=== PATIENT | female | born 1955 | race Caucasian/White ===

== ENCOUNTER → 2020-05-17 14:51 | Outpatient (BNVA) | payer MEDICARE, SELFPAY | PROVIDERS: Family Provider Family Medicine; PCP Family Medicine; Visit Provider Nurse Practitioner Family | DX: Z11.59 Encounter for screening for other viral diseases (principal) | CPT/HCPCS: 87635 ==

== ENCOUNTER → 2020-05-27 09:40 | Outpatient (BNVA) | payer MEDICARE, SELFPAY | PROVIDERS: Family Provider Family Medicine; PCP Family Medicine; Referring Provider Family Medicine; Visit Provider Anesthesiology Pain Medicine | DX: G62.9 Polyneuropathy, unspecified (principal); B02.29 Other postherpetic nervous system involvement; F17.210 Nicotine dependence, cigarettes, uncomplicated; Z79.891 Long term (current) use of opiate analgesic | CPT/HCPCS: 99204 ==

== ENCOUNTER 2020-08-01 12:55 | Outpatient (CLI) | payer MEDICARE, OTHER, SELFPAY ==
--- NOTE | 2020-08-01 | CT_ITS ---
WS: [id number] CT ABDOMEN AND PELVIS WITH CONTRAST HISTORY: Abdominal pain. TECHNIQUE: Imaging performed of the abdomen and pelvis with IV contrast. Single phase imaging of the abdomen. Coronal and sagittal reformats are submitted. All CT scans at [facility] use at least one of these dose optimization techniques: automated exposure control; mA and/or kV adjustment per patient size (includes targeted exams where dose is matched to clinical indication); or iterativ e reconstruction. IV CONTRAST: Omnipaque 300; 95 mL IV. Oral contrast: Yes. DLP: 1099.00 mGy-cm. COMPARISON: 06/15/2019 Lower thorax: Lung bases are clear. Heart is normal size. No hiatal hernia. Liver/biliary system: Normal size with no intrahepatic dilatation. Gallbladder: Normal. No gallstones or wall thickening. No pericholecystic fluid. Pancreas: Normal. Spleen: Normal. Adrenal glands: Slightly lobulated LEFT adrenal gland. Right kidney: Moderate perinephric stranding with numerous acquired cysts. Some of the cyst are too s mall to characterize. There are additional calcifications in the pelvis which are probably related to the vascular system. No obstruction. No solid mass. Mild atrophy of the RIGHT kidney. Left kidney: Normal size with cortical cysts. Mild perinephric stranding. Aorta: There is extensive calcification throughout the aorta and mesenteric arteries. There is a mixt ure of calcified plaque and intimal thickening. Moderate stenosis at the bifurcation extending into t he common iliac arteries. High-grade stenosis in the distal RIGHT common iliac artery and moderate on the LEFT. Lymphadenopathy: There are several indeterminate lymph nodes measuring up to 10 mm at the celiac axis . Majority of these lymph nodes were present on the prior study from 06/15/2019 but appears more promi nent. Free fluid: None. GI tract: There is marked fecal retention. No obstruction. No acute inflammatory process identified. Abdominal wall: Unremarkable abdominal wall. No hernia. Pelvis: No free fluid or adenopathy. Normally distended urinary bladder. Bones: Unremarkable. CT/CT abdomen pelvis w con* [id number] IMPRESSION: 1. Bilateral renal cysts and perinephric stranding. RIGHT kidney is slightly s maller than the LEFT. Stranding was also noted on the prior examination. No int erval change. 2. Severe atherosclerosis of aorta with significant stenosis near the bifurcat ion and distal RIGHT common iliac artery. 3. Mild diffuse constipation. 4. Indeterminate but slightly enlarged celiac axis and angela hepatis lymph nod es measuring up to 10 mm. Lymph nodes measure slightly more prominent than 06/15.
[2020-08-01 14:17] LABS: Blood Urea Nitrogen 19 mg/dL (8-23)
== END 2020-08-01 12:56 | disposition home or self-care (01) ==
PROVIDERS: Family Provider Family Medicine; PCP Family Medicine; Visit Provider Family Medicine
DX: R79.89 Other specified abnormal findings of blood chemistry (principal); R10.9 Unspecified abdominal pain; Q61.02 Congenital multiple renal cysts; K59.00 Constipation, unspecified
CPT/HCPCS: 74177; 82565; 84520; Q9967

== ENCOUNTER 2020-08-09 15:39 | Emergency (ER) | payer MEDICARE, OTHER, SELFPAY ==
[2020-08-09 16:50] VITALS: BP 159/77; PULSE 68; RESP 16; TEMP 36.2; O2SAT 93; BMI 22.6
--- NOTE | 2020-08-09 19:54 | XRR_ITS ---
PROCEDURE INFORMATION: Exam: XR Chest, 1 View Exam date and time: 08/09/2020 8:03 PM Age: 64 years old Clinical indication: Shortness of breath; Additional info: Dyspnea TECHNIQUE: Imaging protocol: XR of the chest Views: 1 view. COMPARISON: CR Chest 1 [place] [id number] 06/26/2019 2:21 PM FINDINGS: Lungs: Unremarkable. No consolidation. Pleural space: Unremarkable. No pleural effusion. No pneumothorax. Heart/Mediastinum: Unremarkable. No cardiomegaly. Bones/joints: Unremarkable. XR/XR chest 1V portable [id number] IMPRESSION: No acute findings.
[2020-08-09 20:02] LABS: Basophils # 0.1 10^3/uL (0.0-0.1); Basophils % 0.7 %; Eosinophils # 0.2 10^3/uL (0.0-0.8); Eosinophils % 1.6 %; Hematocrit 42.8 % (37.0-47.0); Hemoglobin 14.1 g/dL (11.5-15.3); Lymphocytes # 2.4 10^3/uL (0.8-4.8); Lymphocytes % 22.5 %; Mean Corpuscular HGB Conc 32.9 g/dL (30.0-36.0); Mean Corpuscular Hemoglobin 32.2 pg (28.0-34.0); Mean Corpuscular Volume 97.7 fL (81-99); Mean Platelet Volume 10.1 fL (7.4-10.4); Monocytes # 0.6 10^3/uL (0.2-0.9); Monocytes % 5.7 %; Neutrophils # 7.36 10^3/uL (1.8-7.7); Neutrophils % 69.3 %; Nucleated Red Blood Cells % 0 %; Platelet Count 217 10^3/cmm (130-400); Red Blood Count 4.38 10^6/uL (4.1-5.3); Red Cell Distribution Width 12.5 % (12.1-15.1); White Blood Count 10.6 10^3/uL (4.0-10.0)
[2020-08-09 20:15] LABS: INR 0.94 (0.8-1.2)
--- NOTE | 2020-08-09 20:15 | ED_ITS ---
HPI - General Adult General: Chief complaint: General Medical Stated complaint: rash/redness to bilateral legs Time Seen by Provider: 08/09/20 19:37 PFSH ED PFSH: Family History (Updated 05/27/20 @ 10:16 by Venecia Miller LPN) Denies family history of Diabetes CAD (coronary artery disease) Clotting disorder Dementia Hyperlipidemia Chronic kidney disease (CKD) Anesthesia complication Bleeding disorder Family history of premature coronary artery disease Lung disease Cancer Hypertension Social History (Updated 08/09/20 @ 16:57 by Suresh Hawthorne RN) Smoking and tobacco status: current every day smoker cigarettes Packs smoked per day: 1.25 Alcohol intake: never Substance/Drug Use: never Course Vital Signs: Vital signs: Vital Signs Temperature 97.1 F L 08/09/20 16:50 Pulse Rate 68 08/09/20 16:50 Respiratory Rate 16 08/09/20 16:50 Blood Pressure 159/77 08/09/20 16:50 Pulse Oximetry 93 08/09/20 16:[address] [facility] - General Adult Lab Data: Labs: Lab Results 08/09/20 08/09/20 Range/Units 19:30 19:30 WBC 10.6 H (4.0-10.0) 10^3/ uL RBC 4.38 (4.1-5.3) 10^6/u L Hgb 14.1 (11.5-15.3) g/dL Hct 42.8 (37.0-47.0) % MCV 97.7 (81-99) fL MCH 32.2 (28.0-34.0) pg MCHC 32.9 (30.0-36.0) g/dL RDW 12.5 (12.1-15.1) % Plt Count 217 (130-400) 10^3/c mm MPV 10.1 (7.4-10.4) fL Neut % (Auto) 69.3 % Lymph % (Auto) 22.5 % Lipscomb % (Auto) 5.7 % Eos % (Auto) 1.6 % Baso % (Auto) 0.7 % Neut # (Auto) 7.36 (1.8-7.7) 10^3/u L Lymph # (Auto) 2.4 (0.8-4.8) 10^3/u L Lipscomb # (Auto) 0.6 (0.2-0.9) 10^3/u L Eos # (Auto) 0.2 (0.0-0.8) 10^3/u L Baso # (Auto) 0.1 (0.0-0.1) 10^3/u L Nucleated RBC % (a uto) 0 % Nucleated RBCs # 0.0 /100WBC PT 12.80 (12.1-14.9) SECO NDS INR 0.94 (0.8-1.2) Imaging Data^: CXR: Attestation: I personally reviewed and interpreted this imaging study as follows: My impression: No acute cardiopulmonary findings. Discharge Plan Discharge Prescriptions: No Action lisinopril 20 mg tablet 20 mg PO DAILY RF: 0 amlodipine 10 mg tablet 10 mg PO DAILY RF: 0 isosorbide mononitrate 30 mg tablet extended release 24 hr 30 mg PO DAILY RF: 0 methimazole 10 mg tablet 10 mg PO DAILY RF: 0 aspirin [Adult Aspirin Regimen] 81 mg tablet,delayed release (DR/EC) 81 mg PO DAILY RF: 0 pregabalin 75 mg capsule 75 mg PO BID RF: 0 morphine 10 mg capsule,extend.release pellets 15 mg PO .twice RF: 0 lorazepam 1 mg tablet 1 mg PO BID PRNRF: 0 atorvastatin 80 mg tablet 80 mg PO DAILY RF: 0 lidocaine 5 % adhesive patch,medicated 1 patch TOPICAL DAILY RF: 0 polyethylene glycol 3350 8.5 gram powder in packet 8.5 gm PO DAILY PRNRF: 0 ondansetron 8 mg film 8 mg PO Q8H RF: 0 Stool Softener 50 mg capsule 50 mg PO DAILY RF: 0 diphenhydramine HCl [Benadryl] 25 mg capsule 25 mg PO TID PRNRF: 0 Coding Level of Care Code ED Board Certified Arts Therapist for Issa Ji
[2020-08-09 20:16] LABS: Partial Thromboplastin Time 31.2 SECONDS (23.9-36.7)
[2020-08-09 20:21] LABS: Alanine Aminotransferase 117 U/L (0-33); Albumin Level 4.2 g/dL (3.5-5.2); Alkaline Phosphatase 152 IU/L (35-105); Anion Gap 13.5 (5-19); Aspartate Amino Transferase 117 U/L (0-32); Blood Urea Nitrogen 19 mg/dL (8-23); C Reactive Protein 1.7 mg/L (0.0-4.9); Calcium 9.1 mg/dL (8.5-10.5); Carbon Dioxide 27 mmol/L (22-29); Chloride 97 mmol/L (98-107); Globulin 3.8 g/dL (1.3-4.6); Glucose 108 mg/dL (65-115); Lipase 47 U/L (13-60); Osmolality Calculated 279 mOsm/kg (285-295); Potassium 4.5 mmol/L (3.5-5.1); Sodium 133 mmol/L (136-145); Total Bilirubin 0.4 mg/dL (0.15-1.2)
[2020-08-09 20:55] LABS: Erythrocyte Sedimentation Rate 26 mm/hr (0-15)
[2020-08-09 21:01] LABS: Add Urine Microscopic? YES; Bilirubin Urine Neg (Negative); Blood Urine Neg (Negative); Glucose Urine UA Norm (Normal); Ketones Urine Negative (Negative); Leukocyte Esterase Urine Negative (Negative); Nitrate Urine Negative (Negative); Protein Urine Neg (Negative); Specific Gravity, Urine 1.015 (1.005-1.030); Urine Appearance SL Hazy (CLEAR); Urine Color Yellow (Yellow); Urobilinogen Urine Norm (Negative); pH Urine 5 (5-7)
--- NOTE | 2020-08-09 21:06 | USR_ITS ---
PROCEDURE INFORMATION: Exam: US Duplex Lower Extremity Veins, Bilateral Exam date and time: 08/09/2020 9:25 PM Age: 64 years old Clinical indication: Edema, localized; Lower extremity, bilateral; Additional info: Swelling TECHNIQUE: Imaging protocol: Real-time duplex ultrasound of the extremities with 2-D dillon scale, color Doppler flow and spectral waveform analysis with image documentation. Complete exam focused on the bilateral lower extremity veins. COMPARISON: No relevant prior studies available. FINDINGS: Right deep veins: Unremarkable. The common femoral, femoral, proximal profunda femoral and popliteal veins are patent without thrombus. Normal Doppler waveforms. Normal compressibility and/or augmentation response. Right superficial veins: Saphenofemoral junction is patent without thrombus. Left deep veins: Unremarkable. The common femoral, femoral, proximal profunda femoral and popliteal veins are patent without thrombus. Normal Doppler waveforms. Normal compressibility and/or augmentation response. Left superficial veins: Saphenofemoral junction is patent without thrombus. Soft tissues: Unremarkable. US/CV venous duplex [facility] [id number] IMPRESSION: No evidence of deep vein thrombosis.
--- NOTE | 2020-08-09 21:07 | USR_ITS ---
PROCEDURE INFORMATION: Exam: US Abdomen, Limited; Right Upper Quadrant Exam date and time: 08/09/2020 9:25 PM Age: 64 years old Clinical indication: Abdominal pain; Epigastric TECHNIQUE: Imaging protocol: US abdomen. Real time ultrasound with image documentation. Limited exam focused on the right upper quadrant. COMPARISON: CT abdomen pelvis w con* [id number] 08/01/2020 2:25 PM FINDINGS: Liver: Normal. No masses. Gallbladder: Normal. No gallstones. There is no gallbladder wall thickening. Common bile duct: Normal. No stones. No dilation. Pancreas: Visualized pancreas is unremarkable. Right kidney: There are multiple anechoic rounded cystic masses seen within the right kidney. These measure up to 2.6 cm in diameter. US/US gall bladder [id number] IMPRESSION: There are no acute abdominal findings.
[2020-08-09 21:10] LABS: Add Urine Culture? Yes; Bacteria Urine 2+ /hpf; RBC Urine 0-4 /hpf (0-2); Squamous Epithelial Cell Urine 0-4 /hpf (0-5); WBC Urine 15-25 /hpf (0-5)
[2020-08-09] MEDS: predniSONE 20 mg Tablet 60 MG PO (23:07)
[2020-08-09] MEDS: cefdinir 300 MG CAPSULE PO (23:07)
[2020-08-09 23:11] VITALS: PULSE 78; RESP 16; O2SAT 99
== END 2020-08-09 23:13 | disposition home or self-care (01) ==
PROVIDERS: Emergency Provider Emergency Medicine; Family Provider Family Medicine; PCP Family Medicine
DX: I77.6 Arteritis, unspecified (principal); N39.0 Urinary tract infection, site not specified; Z79.82 Long term (current) use of aspirin; F17.210 Nicotine dependence, cigarettes, uncomplicated; R60.0 Localized edema; M79.89 Other specified soft tissue disorders
CPT/HCPCS: 12345; 71045; 76700; 76705; 80053; 81001; 83690; 85025; 85610; 85651; 85730; 86140; 87086; 93970; 99281; 99283; J7512

== ENCOUNTER 2020-08-13 08:14 | Outpatient (CLI) | payer MEDICARE, OTHER, SELFPAY ==
--- NOTE | 2020-08-13 08:20 | MM_ITS ---
WS: [id number] BILATERAL SCREENING DIGITAL MAMMOGRAM WITH CAD HISTORY: SCREENING COMPARISON: 07/14/2017 Bilateral CC and MLO views submitted. Computer aided detection analyzed. Breast composition: There are scattered areas of fibroglandular density. No suspicious masses, microc alcifications or architectural distortion. Benign calcification 6:00 LEFT breast. MM/[place] [id number] IMPRESSION: BI-RADS: 2-Benign FOLLOW UP: 1 Year Follow-up
== END 2020-08-13 08:15 | disposition home or self-care (01) ==
LOC: RADSHAW 08:17
PROVIDERS: PCP Family Medicine; Visit Provider Family Medicine
DX: Z12.31 Encounter for screening mammogram for malignant neoplasm of breast (principal)
CPT/HCPCS: 77067

== ENCOUNTER 2020-10-07 13:35 | Outpatient (CLI) | payer MEDICARE, OTHER, SELFPAY ==
--- NOTE | 2020-10-07 14:00 | CT_ITS ---
WS: [id number] CTA ABDOMINAL AORTA WITH RUNOFF TECHNIQUE: Contrast enhanced CTA of the abdominal aorta with bilateral lower extremity runoff. Multip lanar reformatted images were obtained. MIP reformats were also reviewed. CLINICAL INFORMATION: I73.9 - Peripheral vascular disease, unspecified COMPARISON: None. DLP: 1130.[address] scans at [facility] use at least one of these dose optimization techniques: automat ed exposure control; mA and/or kV adjustment per patient size (includes targeted exams where dose is matched to clinical indication); or iterative reconstruction. FINDINGS: Normal caliber abdominal aorta. Moderate calcified atheromatous disease abdominal aorta. No aneurysm. Dense calcification both proximal renal arteries unchanged. Greater than 50% right proximal renal art carlos stenosis. Celiac and SMA origins are patent. Inferior mesenteric artery is patent. Bilateral renal cysts. Right renal atrophy. Enlarged upper abdominal and angela hepatis lymph nodes ar e unchanged. Prominent periaortic lymph nodes are unchanged. Sigmoid constipation. Tiny fat-containin g umbilical hernia. Lung bases are well aerated. RIGHT: Right common iliac artery is patent. Severe stenosis of the right external iliac artery origin which remains patent. Heavily calcified internal iliac artery. External iliac and common femoral art eries are patent. Superficial femoral artery is tiny but remains patent to the adductor hiatus. Mild segmental stenosis popliteal artery which remains patent to the trifurcation. Dominant two-vessel run off to the ankle. Poor flow in the peroneal artery distally. LEFT: Left common iliac artery is patent. Moderate calcified atheromatous disease. External and inter nal iliac arteries are patent. Heavily calcified internal iliac artery. External iliac artery and com mon femoral arteries are patent. 60% stenosis at the superficial femoral artery origin with multifoca l stenosis in the left thigh. SFA remains patent to the adductor hiatus. Severe stenosis of the popli teal artery origin which remains patent. Popliteal artery is patent to the trifurcation with dominant two-vessel runoff to the ankle. Poor flow in the peroneal artery. CT/CT angio abd aorta runof [id number] IMPRESSION: 1. Multifocal segmental stenosis throughout the lower extremity arteries simil ar to the prior examination. 2. Symmetric appearing dominant bilateral two-vessel runoff to the ankle. Poor flow in the peroneal arteries bilaterally 3. Severe stenosis of the left popliteal artery origin which remains patent. 4. Severe stenosis of the right external iliac artery origin. 5. Otherwise multifocal segmental stenosis involving the external iliac, commo n femoral, superficial femoral artery origins ranging from 50-70% similar to pr evious. 6. Greater than 50% right renal artery stenosis is similar to previous. 7. Celiac and SMA origins are patent. 8. Moderate atheromatous disease abdominal aorta. No significant aneurysm.
[2020-10-07 14:29] LABS: Blood Urea Nitrogen 15 mg/dL (8-23); Glomerular Filtration Rate 62.8 mL/min (90-130)
--- NOTE | 2020-10-07 15:07 | USCV_ITS ---
Isadora Lamb Age: 65 Gender: F : 1955 Exam Date: 10/07/2020 15:10 Ordering Phys: Doretha Moeller MD ([email or web address]) Technologist: Ayleen Padilla [place] [facility] [place]: HISTORY: PVD PROCEDURES: Bilateral duplex Venous Insufficiency study of the Deep and Superficial systems was carried out according to normal protocol with the patient in supine positon for deep system and dependent position for the superficial system. FINDINGS: There is no evidence of bilateral deep vein thrombosis. No evidence of superficial thrombosis in the bilateral saphenous system. No evidence of reflux was noted in the bilateral deep venous system. No venous reflux noted in the bilateral greater saphenous vein. No venous reflux noted in the bilateral small saphenous vein. CONCLUSIONS No evidence of DVT or superficial vein thrombosis in the above- mentioned identifiable veins. No significant venous reflux either in the deep or superficial veins bilaterally Dr Kaley Andrade MD [facility] (Electronically Signed) Final Date: 07 October 2020 17:45 S
[2020-10-07] MEDS: iohexol 350 mg/mL 100 mL Btl IV (15:24)
== END 2020-10-07 13:36 | disposition home or self-care (01) ==
PROVIDERS: PCP Family Medicine; Visit Provider Internal Medicine Cardiovascular Disease
DX: I70.203 Unspecified atherosclerosis of native arteries of extremities, bilateral legs (principal); I70.1 Atherosclerosis of renal artery; I70.0 Atherosclerosis of aorta; I83.93 Asymptomatic varicose veins of bilateral lower extremities
CPT/HCPCS: 36415; 75635; 82565; 84520; 93970

== ENCOUNTER → 2020-11-01 10:28 | Outpatient (BNVA) | payer MEDICARE, OTHER, SELFPAY | PROVIDERS: PCP Family Medicine; Visit Provider Internal Medicine | DX: R23.3 Spontaneous ecchymoses (principal); Z11.1 Encounter for screening for respiratory tuberculosis; Z11.59 Encounter for screening for other viral diseases; R70.0 Elevated erythrocyte sedimentation rate; R74.8 Abnormal levels of other serum enzymes; F17.210 Nicotine dependence, cigarettes, uncomplicated | CPT/HCPCS: 99204 ==

== ENCOUNTER 2020-11-01 14:09 | Outpatient (CLI) | payer MEDICARE, OTHER, SELFPAY ==
[2020-11-01 15:23] LABS: Basophils % 0.1 %; Hemoglobin 13.9 g/dL (11.5-15.3); Lymphocytes % 4.5 %; Mean Corpuscular HGB Conc 33.1 g/dL (30.0-36.0); Mean Corpuscular Hemoglobin 32.5 pg (28.0-34.0); Mean Corpuscular Volume 98.1 fL (81-99); Mean Platelet Volume 10.1 fL (7.4-10.4); Monocytes # 0.2 10^3/uL (0.2-0.9); Neutrophils # 19.98 10^3/uL (1.8-7.7); Nucleated Red Blood Cells % 0 %; Platelet Count 243 10^3/cmm (130-400); Red Blood Count 4.28 10^6/uL (4.1-5.3); White Blood Count 21.3 10^3/uL (4.0-10.0)
[2020-11-01 15:27] LABS: Urine Appearance Clear (CLEAR); Urine Color Yellow (Yellow)
[2020-11-01 15:28] LABS: Add Urine Microscopic? YES; Bilirubin Urine Neg (Negative); Blood Urine Neg (Negative); Glucose Urine UA Norm (Normal); Ketones Urine Negative (Negative); Leukocyte Esterase Urine 2+ (Negative); Nitrate Urine Negative (Negative); Protein Urine Neg (Negative); Specific Gravity, Urine 1.015 (1.005-1.030); Urobilinogen Urine Norm (Negative); pH Urine 5 (5-7)
[2020-11-01 15:36] LABS: INR 0.95 (0.8-1.2)
[2020-11-01 15:37] LABS: Partial Thromboplastin Time 25.6 SECONDS (23.9-36.7)
[2020-11-01 15:38] LABS: Fibrinogen 231 mg/dL (174-498)
[2020-11-01 15:44] LABS: Alanine Aminotransferase 16 U/L (0-33); Alkaline Phosphatase 114 IU/L (35-105); Anion Gap 16.5 (5-19); Aspartate Amino Transferase 18 U/L (0-32); Blood Urea Nitrogen 24 mg/dL (8-23); C Reactive Protein 1.4 mg/L (0.0-4.9); Calcium 9.2 mg/dL (8.5-10.5); Carbon Dioxide 26 mmol/L (22-29); Chloride 94 mmol/L (98-107); Chol HDL Ratio 2.35 mg/dL (0.0-4.40); Cholesterol 207 mg/dL (0-200); Creatine Phosphokinase 22 U/L (26-192); Globulin 3.4 g/dL (1.3-4.6); Glomerular Filtration Rate 41.1 mL/min (90-130); Glucose 177 mg/dL (65-115); HDL Cholesterol 88 mg/dL (60-100); LDL Cholesterol Calculated 84 mg/dL (50-129); LDL HDL Ratio 0.95 RATIO (0.00-3.22); Osmolality Calculated 282 mOsm/kg (285-295); Potassium 4.5 mmol/L (3.5-5.1); Sodium 132 mmol/L (136-145); Total Bilirubin 0.3 mg/dL (0.15-1.2); Total Protein 7.4 g/dL (6.6-8.7); Triglycerides 175 mg/dL (0-150)
[2020-11-01 15:49] LABS: Bacteria Urine 2+ /hpf
[2020-11-01 15:50] LABS: Add Urine Culture? No
[2020-11-01 16:34] LABS: Erythrocyte Sedimentation Rate 21 mm/hr (0-15)
[2020-11-01 16:54] LABS: Complement C3 112 mg/dL (90-180)
[2020-11-01 18:01] LABS: Hepatitis B Core AB, Total Non-Reactive (Nonreactive); Hepatitis B Surface Antigen Non-Reactive (Nonreactive); Hepatitis C Virus Antibody Non-Reactive (Nonreactive)
[2020-11-04 11:07] LABS: COMPLEMENT COMPONENT C3C 111 mg/dL (83-193); COMPLEMENT COMPONENT C4C 26 mg/dL (15-57); COMPLEMENT, TOTAL (CH50) >60 U/mL (31-60)
[2020-11-04 13:12] LABS: Cyclic Citrullinated Peptide <16 UNITS
[2020-11-04 14:13] LABS: Quantiferon Mitogen >10.00 IU/mL; Quantiferon Nil 0.02 IU/mL; Quantiferon Plus TB1 <0.00 IU/mL; Quantiferon TB Gold NEGATIVE (NEGATIVE)
[2020-11-04 15:13] LABS: CENTROMERE B ANTIBODY <1.0 NEG AI (<1.0 NEG); JO-1 ANTIBODY <1.0 NEG AI (<1.0 NEG); RNP ANTIBODY <1.0 NEG AI (<1.0 NEG); SCL-70 ANTIBODY <1.0 NEG AI (<1.0 NEG); SJOGREN'S ANTIBODY (SS-A) <1.0 NEG AI (<1.0 NEG); SM ANTIBODY <1.0 NEG AI (<1.0 NEG); SS-B <1.0 NEG AI (<1.0 NEG); THYROID PEROXIDASE ANTIBODIES 4 IU/mL (<9)
[2020-11-06 03:38] LABS: Glucose-6-Phosphate Dehydrogen >21.0 U/g Hgb (7.0-20.5)
[2020-11-06 15:58] LABS: ANA PATTERN Nuclear, Homogeneous; ANA SCREEN, IFA POSITIVE (NEGATIVE)
[2020-11-06 21:27] LABS: ANCA Interp P-ANCA POS (Negative); Anti-MPO (C-ANCA) >1:640 Titer (<1:20)
[2020-11-08 04:58] LABS: Cryoglobulins Qualitative None Detected (None Detected)
[2020-11-08 22:53] LABS: DNA AB (DS) CRITHIDIA,IFA POSITIVE (NEGATIVE)
== END 2020-11-01 14:10 | disposition home or self-care (01) ==
LOC: LAB 14:13
PROVIDERS: PCP Family Medicine; Visit Provider Internal Medicine
DX: R74.8 Abnormal levels of other serum enzymes (principal); R70.0 Elevated erythrocyte sedimentation rate; M32.9 Systemic lupus erythematosus, unspecified
CPT/HCPCS: 36415; 80053; 80061; 81001; 82550; 82595; 82955; 83516; 85025; 85384; 85610; 85651; 85730; 86140; 86160; 86431; 86480; 86704; 86803; 87340

== ENCOUNTER 2020-11-14 08:01 | Outpatient (CLI) | payer MEDICARE, OTHER, SELFPAY ==
--- NOTE | 2020-11-14 08:00 | US_ITS ---
WS: [id number] RIGHT UPPER QUADRANT ULTRASOUND HISTORY: R70.0 - Elevated erythrocyte sedimentation rate COMPARISON: 08/09/2020 Liver: 12.9 cm in length. Liver is normal size. There is very mild coarsened echotexture. No mass or bile duct dilatation. Gallbladder: Normally distended gallbladder with no stones or wall thickening. CBD: 0.4 cm Pancreas: Normal size and echogenicity. Right kidney: 10.3 cm in length. Normal size kidney. There are multiple cysts within the kidney which have been previously described. The largest cyst from the upper pole measures 2.5 x 2.7 x 2.6 cm. No solid mass. Aorta and IVC: Unremarkable abdominal aorta and IVC. No ascites. US/US liver [id number] IMPRESSION: 1. Very mild coarsened echotexture throughout the liver. Correlate for possibl e early changes of cirrhosis or hepatocellular disease. 2. Negative gallbladder. 3. Several simple RIGHT renal cyst.
== END 2020-11-14 08:02 | disposition home or self-care (01) ==
LOC: RAD 08:09
PROVIDERS: PCP Family Medicine; Visit Provider Internal Medicine
DX: R70.0 Elevated erythrocyte sedimentation rate (principal); N28.1 Cyst of kidney, acquired
CPT/HCPCS: 76705

== ENCOUNTER → 2020-12-20 08:54 | Outpatient (BNVA) | payer MEDICARE, OTHER, SELFPAY | PROVIDERS: PCP Family Medicine; Visit Provider Internal Medicine | DX: I73.9 Peripheral vascular disease, unspecified (principal); R76.8 Other specified abnormal immunological findings in serum; R70.0 Elevated erythrocyte sedimentation rate; R23.3 Spontaneous ecchymoses; R74.8 Abnormal levels of other serum enzymes; Z79.899 Other long term (current) drug therapy; Z79.52 Long term (current) use of systemic steroids; F17.210 Nicotine dependence, cigarettes, uncomplicated | CPT/HCPCS: 99214 ==

== ENCOUNTER 2020-12-23 15:25 | Outpatient (CLI) | payer MEDICARE, OTHER, SELFPAY ==
--- NOTE | 2020-12-23 15:49 | XR_ITS ---
WS: [id number] LUMBAR SPINE TECHNIQUE: 3 views of the lumbar spine CLINICAL INFORMATION: I73.9 - Peripheral vascular disease, unspecified COMPARISON: None. FINDINGS: Osteopenia. Mild lumbar curve convex left. 5 nonrib-bearing lumbar vertebral bodies. Vascular calcifi cation. Mild disc space narrowing worse at L3-L4 L4-L5 and L5-S1. Aortic calcification. Moderate face t arthropathy L5-S1. No acute appearing compression fractures. XR/XR lumbar spine 2-3V* [id number] IMPRESSION: 1. Osteopenia. Mild lumbar curve. 2. No acute lumbar spine findings. 3. Mild disc space narrowing L3-L4 L4-L5 and L5-S1. 4. No acute appearing compression fractures.
== END 2020-12-23 15:26 | disposition home or self-care (01) ==
PROVIDERS: PCP Family Medicine; Visit Provider Internal Medicine
DX: I73.9 Peripheral vascular disease, unspecified (principal)
CPT/HCPCS: 72100

== ENCOUNTER → 2020-12-26 09:26 | Outpatient (BNVA) | payer MEDICARE, OTHER, SELFPAY | PROVIDERS: PCP Family Medicine; Visit Provider Internal Medicine Cardiovascular Disease | DX: I73.9 Peripheral vascular disease, unspecified (principal) | CPT/HCPCS: 80061 ==

== ENCOUNTER → 2021-01-16 08:53 | Outpatient (BNVA) | payer MEDICARE, OTHER, SELFPAY | PROVIDERS: PCP Family Medicine; Visit Provider Internal Medicine Cardiovascular Disease | DX: R74.8 Abnormal levels of other serum enzymes (principal); E78.5 Hyperlipidemia, unspecified | CPT/HCPCS: 82550; 84450; 84460 ==

== ENCOUNTER → 2021-01-28 11:08 | Outpatient (BNVA) | payer MEDICARE, OTHER, SELFPAY | PROVIDERS: PCP Family Medicine; Visit Provider Internal Medicine Cardiovascular Disease | DX: I73.9 Peripheral vascular disease, unspecified (principal) | CPT/HCPCS: 87635 ==

== ENCOUNTER 2021-02-03 09:07 | Day surgery (SDC) | payer MEDICARE, OTHER, SELFPAY ==
[2021-01-28 10:24] LABS: Basophils # 0.1 10^3/uL (0.0-0.1); Basophils % 0.5 %; Eosinophils # 0.2 10^3/uL (0.0-0.8); Eosinophils % 1.4 %; Hematocrit 42.8 % (37.0-47.0); Hemoglobin 14.4 g/dL (11.5-15.3); Lymphocytes # 4.2 10^3/uL (0.8-4.8); Mean Corpuscular HGB Conc 33.6 g/dL (30.0-36.0); Mean Corpuscular Hemoglobin 32.4 pg (28.0-34.0); Mean Corpuscular Volume 96.4 fL (81-99); Mean Platelet Volume 9.6 fL (7.4-10.4); Monocytes # 0.9 10^3/uL (0.2-0.9); Monocytes % 6.8 %; Neutrophils # 7.45 10^3/uL (1.8-7.7); Neutrophils % 58.1 %; Nucleated Red Blood Cells % 0 %; Platelet Count 234 10^3/cmm (130-400); Red Blood Count 4.44 10^6/uL (4.1-5.3); Red Cell Distribution Width 12.6 % (12.1-15.1); White Blood Count 12.8 10^3/uL (4.0-10.0)
[2021-01-28 10:39] LABS: INR 0.92 (0.8-1.2)
[2021-01-28 10:45] LABS: Blood Urea Nitrogen 19 mg/dL (8-23); Calcium 9.2 mg/dL (8.5-10.5); Carbon Dioxide 30 mmol/L (22-29); Chloride 96 mmol/L (98-107); Glomerular Filtration Rate 62.8 mL/min (90-130); Glucose 94 mg/dL (65-115); Osmolality Calculated 280 mOsm/kg (285-295); Sodium 134 mmol/L (136-145)
[2021-02-03] VITALS (48 sets, daily range): BP systolic 122–167; BP diastolic 53–119; PULSE 53–70; RESP 13–28; TEMP 36.4–36.6; O2SAT 95–98
--- NOTE | 2021-02-03 09:00 | XACV_ITS ---
Wt: 64 kg BSA: 1.73 m2 Any Known Allergies: No known allergies Gender: Female : 1955 Exam Type: Invasive Peripheral Vascular Procedure(s): Procedure Description: Peripheral Cath Diagnostic Procedure Procedure Description: Abdominal aortic angiography Procedure Description: Iliac arterial aortic angiography Procedure Description: Lower extremities' angiography Procedure Description: Peripheral vascular Intervention Procedure Description: PV Balloon Procedure Description: PV Stent Exam Priority: Routine Lower Extremity Interventional Findings After using the left common femoral artery approach we were able to cross the right common and external iliac into right SFA. While crossing right external iliac artery we with had somewhat difficulty as it appeared to be highly calcified and narrow vessel. Gradient across the vessel was noted to be 60 mmHg. Multiple balloon angioplasty in the right external and common iliac arteries were performed using 5 and 6 mm caliber balloon using [place]. Gradient did not improve more than 40. It is the reason we decided to stent the segment using silver Cook PTX 7 x 60 mm stent deployed postdilated with 7 x 60 mm [place] balloon. 10 to 20 mm gradient still residual was noted however we the results and we have a good angiographic blood flow. At the end of the procedure three-vessel runoff was noted below the right knee.. Conclusions Indication for peripheral angiogram: Lifestyle limiting claudication of right leg, abnormal imaging study.Fontan two Annette 3Abdominal angiogram, no significant stenosis of the abdominal aorta, no aneurysm notedBilateral renal artery without stenosisCommon iliac has luminal irregularity bilaterallyRight external iliac artery is moderate to severely stenotic. 60 mm of gradient across the external iliac artery lesion noted upon pullback. It is the culprit vesselLeft external iliac artery at the origin and distal segment has moderate stenosisRight common femoral artery has luminal irregularity, left common femoral artery has moderate stenosisRight and left profundofemoral artery has luminal irregularityRight and left SFA has luminal irregularityRight and left popliteal artery has luminal irregularityRight and left tibioperoneal trunk has luminal irregularityBelow the knee good three-vessel runoff was noted.Culprit vessel is right external iliac artery. Recommendations 1-Return to inpatient for close monitoring and routine cath care2-Risk factor modification for secondary prevention3-Statin and aspirin 81 mg life--long, if tolerated4-Patient was pre-loaded with 300 mg of Plavix, continue Plavix 75mg p.o. daily for three months. 5-Continue optimal medical management, if patient has lifestyle limiting claudication he may will be benefited with left side external iliac and common femoral vessel intervention which appeared to be moderate to severely stenotic6-Follow up with Dr. Moeller in four weeks and your primary care in 10 days. Hemodynamic Data Phase:Rest AO : 129.0 / 43.0 ( 71.0 ) @ 5:40:00 AM 35.0 / 28.0 ( 32.0 ) @ 5:45:00 AM 42.0 / 32.0 ( 37.0 ) @ 5:46:00 AM 38.0 / 29.0 ( 33.0 ) @ 5:48:00 AM 111.0 / 34.0 ( 62.0 ) @ 5:48:00 AM 66.0 / 41.0 ( 52.0 ) @ 5:59:00 AM 98.0 / 39.0 ( 63.0 ) @ 6:00:00 AM 100.0 / 62.0 ( 82.0 ) @ 6:05:00 AM 141.0 / 52.0 ( 87.0 ) @ 6:07:00 AM 95.0 / 48.0 ( 69.0 ) @ 6:08:00 AM 92.0 / 46.0 ( 66.0 ) @ 6:09:00 AM 136.0 / 48.0 ( 83.0 ) @ 6:09:00 AM 122.0 / 46.0 ( 75.0 ) @ 6:18:00 AM 84.0 / 45.0 ( 62.0 ) @ 6:19:00 AM 110.0 / 47.0 ( 74.0 ) @ 6:19:00 AM Access Site Site: Left Femoral artery Sheath Size: 6 Fr Hemost... Method: Suture Hemost... Success: Successful Procedure Details Findings Procedure Consent Obtained. Pre-Procedure Time Out. Identified patient by full name and date of as verbalized by the patient/guarantor. Does the consent match the physician's order: Yes. Accurate & Complete Informed Consent: Yes. Inpatient/Outpatient History & Physical on Chart: Yes. If H&P is completed, is and addenduem needed: No; If yes, is the addendum complete: N/A. Visualize and Verify Site with Patient/Guarantor: N/A. Relevant Radiology Images available: N/A. Pre-op teaching completed and patient verbalized understanding. The risks, benefits, and alternatives of sedation and/or procedure were discussed by physician. The patient agrees to continue. Procedure started. Physician notified. Physician arrived. Equipment: Peripheral. Cardiac Cath Pack. ACIST Manifold Kit Model BT 2000. Heparinized Saline (2 units/mL), 1000 mL bag. Inventory is JJ 6F 11cm Azul Plus Sheath. Physician scrubbed in. Immediate Pre-Procedure Time Out. Correct Patient: Yes; Correct Procedure: Yes; Correct Site: Yes; Correct Patient Position: Yes; Correct Supplies: Yes; Dried Flammable Prep: Yes; Blood Products Available: N/A;. Lidocaine 1% infiltrated to the left groin. Arterial access obtained with micropuncture set. A CORDIS 5F UF catheter 65cm was advanced over the wire and used for Abdominal aortogram with runoff. Abdominal aortogram performed in AP @ 10 mL/sec for a total of 30 mL. Glidewire inserted. Short 6 fr sheath exchanged for 45 cm 6 fr Flexor sheath. Inventory is CK 6 FR FLEXOR SHEATH 45CM. Catheter removed over the glide wire. Glidewire inserted. Sheath pulled back. Right leg runoff 10 ml for total of 30 ml. Side port of sheath attached to Normal Saline flush at KVO to maintain patency. Inflation number : 1 A AB ARMADA 35 OTW [id number] was prepped and advanced across the External Iliac, Right , then inflated to 12 GEO for 2:02 seconds. Inflation number: 2 The AB ARMADA 35 OTW [id number] was reinflated across the External Iliac, Right, to 12 GEO for 1:04 seconds. Inflation number: 3 The AB ARMADA 35 OTW [id number] was reinflated across the External Iliac, Right, to 14 GEO for 0:32 seconds. Balloon out over wire. Iliac angiography 10 ml for total of 20 ml. Right external iliac selected and arteriogram performed. Right external iliac selected and arteriogram performed. Iliac angiography 10 ml for total of 20 ml. Inflation number : 4 A AB ARMADA 35 OTW [id number] was prepped and advanced across the External Iliac, Right , then inflated to 7 GEO for 2:01 seconds. Balloon out over wire. Sheath pulled back. Inflation Number : 5 A [employer] ZILVER PTX CHARITY 7x60mm -Lot Number# [id number] exp date 01/14/2022 was prepped and advanced across the External Iliac, Right. The stent was deployed. Deployment system removed. Inflation number: 6 The AB ARMADA 35 OTW [id number] was reinflated across the External Iliac, Right, to 7 GEO for 1:04 seconds. Balloon out over wire. Sheath advanced to right common iliac. Sheath pulled back. Inflation number: 7 The AB ARMADA 35 OTW [id number] was reinflated across the External Iliac, Right, to 7 GEO for 1:02 seconds. Balloon out over wire. Right leg runoff 10 ml for total of 30 ml to check results. Long 45 cm Flexor sheath exchanged for short 6 fr sheath. Left leg runoff through the sheath 10 ml for total of 30 ml. Physician scrubbed out. A Suture was successful obtaining hemostatsis at the Left Femoral artery insertion site. Sheath(s) sutured into position with 2-0 silk and sterile 4x4's and Op-site applied over the site. No oozing or signs and symptoms of hematoma noted. Arterial sheath flushed and connected to tranducer and pressure bag with heparinized saline. Post Procedure: Pulses reassessed and unchanged. PERRLA. 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 No VTE prophylaxis required. Medication's Wasted: Lidocaine 1% = 10 mL. Medication's Wasted: Heparin = 3500 units. Medication's Wasted: Other = versed 1 mg. Medication's Wasted: Other = fentanyl 75 mcg. Total IV fluids: 100 mL. Contrast type used: Visipaque 320 mgI/mL, 500 mL bottle. Complications: none. Post-op diagnosis: severe PVD of external illiac. Estimated blood loss: 5mL-10mL. Procedure completed. Patient transferred by bed to 1st floor. Procedure Medications Start: 10:13 AM Stop: 10:13 AM Medication: Benadryl Amount: 50 mg Route: I.V. Start: 10:20 AM Stop: 10:20 AM Medication: Versed Amount: 1 mg Route: I.V. Start: 10:20 AM Stop: 10:20 AM Medication: Fentanyl Amount: 50 mcg Route: I.V. Start: 10:24 AM Stop: 10:24 AM Medication: Versed Amount: 1 mg Route: I.V. Start: 10:32 AM Stop: 10:32 AM Medication: Versed Amount: 1 mg Route: I.V. Start: 10:35 AM Stop: 10:35 AM Medication: Fentanyl Amount: 25 mcg Route: I.V. Start: 10:38 AM Stop: 10:38 AM Medication: Versed Amount: 1 mg Route: I.V. Start: 10:56 AM Stop: 10:56 AM Medication: Versed Amount: 1 mg Route: I.V. Start: 10:59 AM Stop: 10:59 AM Medication: Heparin Amount: 5000 units Route: I.V. Start: 11:05 AM Stop: 11:05 AM Medication: Fentanyl Amount: 25 mcg Route: I.V. Start: 11:07 AM Stop: 11:07 AM Medication: Versed Amount: 1 mg Route: I.V. Start: 11:21 AM Stop: 11:21 AM Medication: Versed Amount: 1 mg Route: I.V. Start: 11:23 AM Stop: :23 AM Medication: Fentanyl Amount: 25 mcg Route: I.V. Start: 11:26 AM Stop: 11:26 AM Medication: Heparin Amount: 1500 units Route: I.V. Start: 11:31 AM Stop: 11:31 AM Medication: Plavix Amount: 300 mg Route: P.O. I, the attending physician, have reviewed and verified all procedure medications. Yes, all medications given per verbal order History/Risk Factors Hypertension: No Dyslipidemia: No Peripheral Arterial Disease (PAD): Yes Obesity: No Renal Disease: No Tobacco Use: Current/Recent(w/in 1 year) Prior Interventions PCI: No CABG: No Valve Surgery: No Report Signatures Finalized by Doretha Moeller MD on 02/16/2021 08:46 PM
--- NOTE | 2021-02-03 10:21 | P.HP_ITS ---
Same Day Surgery H&P Indication for Procedure/HPI DATE OF PROCEDURE: February 03, 2021 CHIEF COMPLAINT/INDICATIONFOR SURGICAL PROCEDURE: Lifestyle limiting claudication more on right than left PREOP DIAGNOSIS: Severe peripheral vascular disease, lifestyle limiting claudication PLANNED PROCEDRUE: Operation Date: 02/03/21 10:00 Proposed Procedures p Peripheral Diagnostic 10873 I87.2(Not Applicable) - Doretha Moeller MD 65-year-old female past medical history significant for hypertension hyperlipidemia severe peripheral vascular disease history of smoking for lifestyle limiting claudication and abnormal CTA for severe stenosis of the right external iliac artery at the origin with multifocal segmental stenosis involving the external iliac common femoral superficial femoral ranging from 50 to 70% after failing the medical management she is here for peripheral angiogram as it is hindering her lifestyle and she thinks she cannot walk more than few feet. Patient has been explained all risk benefit and alternative for the procedure. Patient has been explained by myself regarding FDA warning about drug-coated balloon as it has shown to increase mortality. Patient understand it and given with permission if required I can use it. Patient denies otherwise chest pain shortness of breath PND orthopnea. Patient has been explained urgent emergent blood transfusion surgery and worse case scenario risk for . Medications/Allergies* Home Medications Medication Instructions Recorded Confirmed Type amlodipine 10 mg tablet 10 mg PO DAILY 05/27/20 01/31/21 History aspirin 81 mg tablet,delayed 81 mg PO DAILY 05/27/20 01/31/21 History release docusate sodium 50 mg capsule 50 mg PO DAILY 05/27/20 01/31/21 History isosorbide mononitrate 30 mg 30 mg PO DAILY 05/27/20 01/31/21 History tablet,extended release 24 hr lidocaine 5 % topical patch 1 patch TOPICAL DAILY 05/27/20 01/31/21 History lorazepam 1 mg tablet 1 mg PO BID PRN 05/27/20 01/31/21 History morphine 10 mg capsule,extended 15 mg PO BID cap 05/27/20 01/31/21 History release pellets ondansetron 8 mg oral soluble film 8 mg PO Q8H 05/27/20 01/31/21 History polyethylene glycol 3350 8.5 gram 8.5 gm PO DAILY PRN 05/27/20 01/31/21 History oral powder packet pregabalin 75 mg capsule 75 mg PO BID 05/27/20 01/31/21 History lidocaine-methyl applic TOPICAL 09/12/20 12/20/20 History mca-cpwotcwht-dvjfuol 2 %-20 %-0.035 %-5 % top cream methimazole 10 mg tablet 5 mg PO .qod tab 09/12/20 01/31/21 History lisinopril 20 1 tab PO DAILY 11/01/20 01/31/21 History mg-hydrochlorothiazide 12.5 mg tablet Narcan 4 mg NOSTRIL-B PRN 01/31/21 01/31/21 History atorvastatin 80 mg PO BEDTIME 01/31/21 01/31/21 History Allergies/Adverse Reactions Allergy/AdvReac Type Severity Reaction Status Date / Time No Known Allergies Allergy Verified 12/20/20 09:08 Pertinent History/Comorbid Conditions* Medical History (Updated 12/20/20 @ 09:33 by Virginia Fermin MD) Claudication of both lower extremities Family History (Updated 05/27/20 @ 10:16 by Venecia Miller LPN) Denies family history of Diabetes CAD (coronary artery disease) Clotting disorder Dementia Hyperlipidemia Chronic kidney disease (CKD) Anesthesia complication Bleeding disorder Family history of premature coronary artery disease Lung disease Cancer Hypertension Social History Smoking and tobacco status: current every day smoker cigarettes Packs smoked per day: 1.25 Alcohol intake: never Pertinent Exam Findings alert, oriented x 3, clear to auscultation bilaterally and regular rate & rhythm Conscious Sedation Assessment PATIENT ASSESSED PRIOR TO SEDATION, WITH NO CHANGE NOTED: Yes AIRWAY EVAL/ANESTHESIA PLAN: ASA II and Risks, benefits & alternatives of sedation and/or procedure discussed Recommendations Surgery/Procedure today Coding Level of Care Code Acute Membership Manager for Issa Ji
--- NOTE | 2021-02-03 12:09 | PC.NURSE ---
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
[2021-02-03] MEDS: hydroCHLOROthiazide 25 mg Tablet 12.5 MG PO (13:45)
[2021-02-03] MEDS: lisinopril 20 mg Tablet PO (13:45)
[2021-02-03] MEDS: aspirin 81 mg EC Tablet PO (13:45)
--- NOTE | 2021-02-03 14:00 | PC.NURSE ---
Home meds per policy are kept in the pyxis. Explained to pt regarding hospital policy regarding her home med bottles with narcotics and her home meds. Pharmacy is notified as well as the physician regarding pt's needing her Lyrica and Morphine 15 mg IR for breakthrough pain. Okay for doctor Sunni to start her meds. We informed the patient that we will keep her home meds in the pysis. Meds in Pyxis- Lidocaine patch, Morphine 15 mg IR, Morphine 15 mg ER, Lyrica 75 caps, Methimazole 5 mg, Prednisone 5 mg, Nitroglycerine bottle, one bottle with her morning pills.
[2021-02-03] MEDS: pregabalin 75 mg Capsule PO (14:07)
[2021-02-03] MEDS: morphine IR 15 mg Tablet PO (14:07)
[2021-02-03] MEDS: predniSONE 5 mg Tablet PO (14:08)
[2021-02-03 15:17] LABS: Partial Thromboplastin Time 231.6 SECONDS (23.9-36.7)
[2021-02-03 16:40] LABS: Partial Thromboplastin Time 38.2 SECONDS (23.9-36.7)
[2021-02-03] MEDS: fentaNYL 50 mcg/mL INJ 2mL IVP ×2 (17:59→18:46)
--- NOTE | 2021-02-03 18:15 | PC.NURSE ---
Pt stated she is having pain across her middle back radiates to right hip and right groin. she described the pain a sharp shooting pain once in a while, pain scale at 10 when she feels it. Pedal pulse are palpable bilaterally. Skin is warm to touch. Fentanyl IVP 1st dose given which patient said it brought her pain down to 5. We will monitor.
--- NOTE | 2021-02-03 18:30 | PC.NURSE ---
Sheath pulled on left femoral artery Per-medicated pt with Fentanyl x2. Femoral artery felt on left groin area. Sheath pulled. Manual pressure applied for 20 mins. Hemostasis achieved. No hematoma, bleeding, swelling. Pedal pulses are doppled bilaterally with good result. Acitivity restrictions discussed to pt. Pt teaches back. Call light within reach.
--- NOTE | 2021-02-03 19:00 | PC.NURSE ---
Repositioned to left side for comfort Pt still has mild to moderate pain upon movement to her right hip. Repositioned to left side which help.
[2021-02-03] MEDS: morphine ER (12 HR) 15 mg Tablet PO (20:43)
[2021-02-03] MEDS: atorvastatin 40 mg Tablet 80 MG PO (20:43)
[2021-02-03] MEDS: LORazepam 1 mg Tablet PO (20:43)
[2021-02-04] VITALS (33 sets, daily range): BP systolic 110–152; BP diastolic 56–74; PULSE 52–78; RESP 14–25; TEMP 36.6–37.5; O2SAT 95
[2021-02-04 04:45] LABS: Basophils # 0.1 10^3/uL (0.0-0.1); Basophils % 0.4 %; Eosinophils # 0.1 10^3/uL (0.0-0.8); Eosinophils % 1.1 %; Hematocrit 41.8 % (37.0-47.0); Hemoglobin 13.9 g/dL (11.5-15.3); Lymphocytes # 2.1 10^3/uL (0.8-4.8); Mean Corpuscular HGB Conc 33.3 g/dL (30.0-36.0); Mean Corpuscular Hemoglobin 32.3 pg (28.0-34.0); Mean Corpuscular Volume 97.2 fL (81-99); Mean Platelet Volume 10.2 fL (7.4-10.4); Monocytes # 0.9 10^3/uL (0.2-0.9); Monocytes % 7.2 %; Neutrophils # 9.17 10^3/uL (1.8-7.7); Neutrophils % 74.1 %; Nucleated Red Blood Cells % 0 %; Platelet Count 195 10^3/cmm (130-400); Red Cell Distribution Width 12.4 % (12.1-15.1); White Blood Count 12.4 10^3/uL (4.0-10.0)
[2021-02-04 05:10] LABS: Anion Gap 10.4 (5-19); Blood Urea Nitrogen 20 mg/dL (8-23); Calcium 8.5 mg/dL (8.5-10.5); Carbon Dioxide 27 mmol/L (22-29); Chloride 101 mmol/L (98-107); Glomerular Filtration Rate 62.8 mL/min (90-130); Glucose 96 mg/dL (65-115); Osmolality Calculated 280 mOsm/kg (285-295); Potassium 4.4 mmol/L (3.5-5.1); Sodium 134 mmol/L (136-145)
[2021-02-04] MEDS: predniSONE 5 mg Tablet PO (08:38)
[2021-02-04] MEDS: aspirin 81 mg EC Tablet PO (08:38)
[2021-02-04] MEDS: amlodipine 10 mg Tablet PO (08:38)
[2021-02-04] MEDS: isosorbide mononitrate ER 30 mg Tablet PO (08:38)
[2021-02-04] MEDS: hydroCHLOROthiazide 25 mg Tablet 12.5 MG PO (08:39)
[2021-02-04] MEDS: morphine ER (12 HR) 15 mg Tablet PO (08:39)
[2021-02-04] MEDS: lisinopril 20 mg Tablet PO (08:39)
[2021-02-04] MEDS: pantoprazole DR 40 mg Tablet PO (08:39)
[2021-02-04 09:47] LABS: Glucose Urine UA Norm (Normal); Ketones Urine Negative (Negative); Protein Urine Neg (Negative); Specific Gravity, Urine 1.005 (1.005-1.030); Urine Appearance Cloudy (CLEAR); Urine Color Yellow (Yellow); pH Urine 5 (5-7)
[2021-02-04 09:48] LABS: Add Urine Culture? Yes; Add Urine Microscopic? YES; Bacteria Urine 1+ /hpf; Bilirubin Urine Neg (Negative); Blood Urine 3+ (Negative); Leukocyte Esterase Urine 2+ (Negative); Nitrate Urine Negative (Negative); Urobilinogen Urine Norm (Negative); WBC Urine 80-100 /hpf (0-5)
--- NOTE | 2021-02-04 10:57 | P.DS_ITS ---
Discharge Providers Date of Admission: 02/03/21 11:46 Date of Discharge: February 04, 2021 Attending Provider at Admission: Doretha Moeller MD Attending Provider at Discharge: Doretha Moeller MD Primary Care Provider: Lizzette Tucker MD Reason for Visit Reason for Visit: Peripheral Diagnostic Hospital Course Hospital Course 65-year-old female past medical history significant for hypertension hyperlipidemia peripheral vascular disease for lifestyle limiting claudication underwent peripheral angiogram. She was noted to have severely stenotic right ostial external iliac and moderate to severely stenotic distal external iliac and proximal common femoral artery. Severe dampening of pressure across the lesions were noted. Balloon angioplasty was performed which improved the gradient across but not significantly therefore we proceeded with Zilver drug- eluting stent in the external iliac arteries. Distally in the external iliac artery and common femoral were used 7 no balloon. Excellent angiographic result was achieved. No overnight event happened except UTI was noted in the morning for which ciprofloxacin was given since patient was complaining of lower abdominal pain. She is feeling much better now. She is being discharged home. There is no bruising hematoma on the left side. We will continue Plavix for 3 months. Physical Exam Narrative: EXAM NARRATIVE: GENERAL: Patient is alert, awake and oriented x3. NECK: No jugular vein distension. HEENT: No cyanosis. No icterus. No pallor. HEART: Regular S1 and S2. No murmur, rub or gallop. LUNGS: Clear to auscultate bilaterally. ABDOMEN: Soft, nontender and nondistended. Positive bowel sounds. No guarding, rebound or tenderness. CENTRAL NERVOUS SYSTEM: Grossly nonfocal. EXTREMITIES: Lower extremities without edema bilaterally. Pulses palpable in the lower extremities, both dorsalis pedis and posterior tibial. Discharge Data Data Completed and Pending: Pending at discharge Category Date Time Status [employer] request for service Routin e Exams 02/03/21 09:00 Taken Urine Culture [facility] 02/04/21 09:10 Received Labs from last 24 hours 02/04/21 02/04/21 02/04/21 09:10 04:16 04:16 WBC 12.4 H RBC 4.30 Hgb 13.9 Hct 41.8 MCV 97.2 MCH 32.3 MCHC 33.3 RDW 12.4 Plt Count 195 MPV 10.2 Neut % (Auto) 74.1 Lymph % (Auto) 17.0 [place] % (Auto) 7.2 Eos % (Auto) 1.1 Baso % (Auto) 0.4 Neut # (Auto) 9.17 H Lymph # (Auto) 2.1 [place] # (Auto) 0.9 Eos # (Auto) 0.1 Baso # (Auto) 0.1 Nucleated RBC % (a uto) 0 Nucleated RBCs # 0.0 APTT Sodium 134 L Potassium 4.4 Chloride 101 Carbon Dioxide 27 Anion Gap 10.4 BUN 20 Creatinine 0.9 GFR Calculation 62.8 L Glucose 96 Calculated Osmolal ity 280 L Calcium 8.5 Urine Color Yellow Urine Appearance Cloudy Urine pH 5 Ur Specific Gravit y 1.005 Urine Protein Neg Urine Glucose (UA) Norm Urine Ketones Negative Urine Blood 3+ H Urine Nitrate Negative Urine Bilirubin Neg Urine Urobilinogen Norm Ur Leukocyte Amada ase 2+ H Urine RBC 10-15 H Urine WBC 80-100 H Ur Squamous Epith Cells 5-10 H Amorphous Sediment Not Reportable Urine Bacteria 1+ H 02/03/21 02/03/21 16:09 13:51 WBC RBC Hgb Hct MCV MCH MCHC RDW Plt Count MPV Neut % (Auto) Lymph % (Auto) [place] % (Auto) Eos % (Auto) Baso % (Auto) Neut # (Auto) Lymph # (Auto) [place] # (Auto) Eos # (Auto) Baso # (Auto) Nucleated RBC % (a uto) Nucleated RBCs # APTT 38.2 H D 231.6 H* Sodium Potassium Chloride Carbon Dioxide Anion Gap BUN Creatinine GFR Calculation Glucose Calculated Osmolal ity Calcium Urine Color Urine Appearance Urine pH Ur Specific Gravit y Urine Protein Urine Glucose (UA) Urine Ketones Urine Blood Urine Nitrate Urine Bilirubin Urine Urobilinogen Ur Leukocyte Amada ase Urine RBC Urine WBC Ur Squamous Epith Cells Amorphous Sediment Urine Bacteria Vitals: Last Vital Signs Temp 97.8 F 02/04/21 08:00 Pulse 70 02/04/21 08:00 Resp 19 H 02/04/21 08:00 BP 152/74 02/04/21 08:00 Pulse Ox 95 02/04/21 08:00 Discharge Plan Discharge Patient Disposition: Home Condition: Stable Prescriptions: New Plavix 75 mg tablet 75 mg PO DAILY Qty: 90 RF: 0 Cipro 250 mg tablet 250 mg PO BID Qty: 7 RF: 1 Continued lisinopril-hydrochlorothiazide 20-12.5 mg tablet 1 tab PO DAILY RF: 0 amlodipine 10 mg tablet 10 mg PO DAILY RF: 0 isosorbide mononitrate 30 mg tablet extended release 24 hr 30 mg PO DAILY RF: 0 aspirin [Adult Aspirin Regimen] 81 mg tablet,delayed release (DR/EC) 81 mg PO DAILY RF: 0 morphine 10 mg capsule,extend.release pellets 15 mg PO BID RF: 0 lorazepam 1 mg tablet 1 mg PO BID PRN (Reason: Anxiety) RF: 0 lidocaine 5 % adhesive patch,medicated 1 patch TOPICAL DAILY RF: 0 polyethylene glycol 3350 8.5 gram powder in packet 8.5 gm PO DAILY RF: 0 methimazole 10 mg tablet 5 mg PO .qod RF: 0 prednisone 5 mg tablet See Rx Instructions PO DAILY Qty: 90 RF: 2 omeprazole 20 mg capsule,delayed release(DR/EC) 20 mg PO DAILY Qty: 30 RF: 3 atorvastatin 80 mg tablet 80 mg PO BEDTIME RF: 0 ondansetron 8 mg Tablet,Disintegrating 8 mg PO Q8H RF: 0 nitroglycerin 0.4 mg Tablet, Sublingual 0.4 mg SUBLINGUAL Q5M PRN (Reason: Chest Pain) RF: 0 morphine 15 mg Tablet Extended Release 15 mg PO Q12H RF: 0 morphine 15 mg tablet 15 mg PO Q12H PRN (Reason: Breakthrough Pain, Severe) RF: 0 pregabalin 100 mg Capsule 75 mg PO BID RF: 0 Discharge Orders: Discharge Order (Routine); Ordered 02/04/21 Ordered By: Doretha Moeller Referrals: Doretha Moeller MD [Physician] - (YOU HAVE A FOLLOW UP APPOINMENT WITH DR. MOELLER ON April AT 330. IF YOU HAVE ANY QUESTIONS OR NEED TO RESCHEDULE PLEASE CALL [phone].) Carlo Agarwal FNP [Nurse Practitioner] - 7-10 days (YOU HAVE A FOLLOW UP APPOINMENT WITH CARLO AGARWAL ON January AT 930. IF YOU HAVE ANY QUESTIONS OR NEED TO RESCHEDULE PLEASE CALL [phone].) Discharge Diet: Cardiac Discharge Activity: Increase activity as tolerated Patient Instructions: Ciprofloxacin (By mouth), Clopidogrel (By mouth), Peripheral Vascular Stent Placement (DC), Peripheral Vascular Angioplasty (DC), Opioid Safety, Post Angiogram Home Care Instructions Activity Restrictions/Additional Instructions: Follow-up with Carlo Agarwal cardiology nurse practitioner in 7 days, follow-up with Dr. Moeller in 3 months. Do not lift more than a gallon of milk for next 3 days. Discharge Attestations Time Spent in Discharge Care*: greater than 30 min Specific Discharge Activities: educating patient and educating and/or supporting family/caregiver Quality Metrics Clinical Quality Measures During this hospital stay, did patient experience: None Coding Level of Care Code Established Pt Acute Chg FW DC note Patient Type Established History Detailed Exam Detailed Medical Decision Making Moderate Complexity
[2021-02-04] MEDS: ciprofloxacin 500 mg Tablet PO (11:02)
[2021-02-04] MEDS: pregabalin 75 mg Capsule PO (11:03)
--- NOTE | 2021-02-04 12:13 | PC.NURSE ---
discharge instructions given and explained.pt verb understanding of instructions.discharged via w/c to exit.spouse to drive pt home.
== END 2021-02-04 12:12 | disposition home or self-care (01) ==
LOC: CCL 09:07 → CSU 12:37
PROVIDERS: PCP Family Medicine; Visit Provider Internal Medicine Cardiovascular Disease
DX: I70.211 Atherosclerosis of native arteries of extremities with intermittent claudication, right leg (principal); E78.5 Hyperlipidemia, unspecified; Z79.82 Long term (current) use of aspirin; F17.210 Nicotine dependence, cigarettes, uncomplicated; I25.10 Atherosclerotic heart disease of native coronary artery without angina pectoris; I12.9 Hypertensive chronic kidney disease with stage 1 through stage 4 chronic kidney disease, or unspecified chronic kidney disease; N18.9 Chronic kidney disease, unspecified
CPT/HCPCS: 36415; 37221; 75625; 75716; 80048; 81001; 85025; 85610; 85730; 87086; C1725; C1769; C1876; C1887; C1894; J1200; J1644; J2250; J3010; J7030; J7512; Q9967

== ENCOUNTER → 2021-02-11 12:58 | Outpatient (BNVA) | payer MEDICARE, OTHER, SELFPAY | PROVIDERS: PCP Family Medicine; Visit Provider Internal Medicine | DX: I73.9 Peripheral vascular disease, unspecified (principal); R93.89 Abnormal findings on diagnostic imaging of other specified body structures; R76.8 Other specified abnormal immunological findings in serum; R70.0 Elevated erythrocyte sedimentation rate; R74.01 Elevation of levels of liver transaminase levels; Z79.899 Other long term (current) drug therapy; Z79.52 Long term (current) use of systemic steroids; F17.210 Nicotine dependence, cigarettes, uncomplicated | CPT/HCPCS: 36415; 80048; 81001; 81003; 87086; 99214 ==

== ENCOUNTER → 2021-02-12 11:03 | Outpatient (BNVA) | payer MEDICARE, OTHER, SELFPAY | PROVIDERS: PCP Family Medicine; Visit Provider Obstetrics & Gynecology | DX: N95.0 Postmenopausal bleeding (principal) | CPT/HCPCS: 88305 ==

== ENCOUNTER → 2021-02-14 14:02 | Outpatient (BNVA) | payer MEDICARE, OTHER, SELFPAY | PROVIDERS: PCP Family Medicine; Visit Provider Obstetrics & Gynecology | DX: N95.0 Postmenopausal bleeding (principal) | CPT/HCPCS: 76830 ==

== ENCOUNTER → 2021-02-27 08:47 | Outpatient (BNVA) | payer MEDICARE, OTHER, SELFPAY | PROVIDERS: PCP Family Medicine; Visit Provider Internal Medicine Cardiovascular Disease | DX: I73.9 Peripheral vascular disease, unspecified (principal); R74.8 Abnormal levels of other serum enzymes | CPT/HCPCS: 80048 ==

== ENCOUNTER → 2021-03-12 10:37 | Outpatient (BNVA) | payer MEDICARE, OTHER, SELFPAY | PROVIDERS: PCP Family Medicine; Visit Provider Internal Medicine Cardiovascular Disease | DX: R74.8 Abnormal levels of other serum enzymes (principal); I73.9 Peripheral vascular disease, unspecified; I87.2 Venous insufficiency (chronic) (peripheral) | CPT/HCPCS: 80061; 80076 ==

== ENCOUNTER 2021-03-19 16:02 | Outpatient (CLI) | payer MEDICARE, OTHER, SELFPAY ==
[2021-03-19 16:56] LABS: Basophils # 0.1 10^3/uL (0.0-0.1); Basophils % 0.6 %; Eosinophils % 0.3 %; Hematocrit 42.3 % (37.0-47.0); Hemoglobin 14.2 g/dL (11.5-15.3); Lymphocytes # 1.8 10^3/uL (0.8-4.8); Lymphocytes % 14.2 %; Mean Corpuscular HGB Conc 33.6 g/dL (30.0-36.0); Mean Corpuscular Hemoglobin 32.1 pg (28.0-34.0); Mean Corpuscular Volume 95.7 fL (81-99); Mean Platelet Volume 10.4 fL (7.4-10.4); Monocytes # 0.8 10^3/uL (0.2-0.9); Monocytes % 6.3 %; Neutrophils # 9.87 10^3/uL (1.8-7.7); Neutrophils % 78.2 %; Nucleated Red Blood Cells % 0 %; Platelet Count 232 10^3/cmm (130-400); Red Blood Count 4.42 10^6/uL (4.1-5.3); Red Cell Distribution Width 11.9 % (12.1-15.1); White Blood Count 12.6 10^3/uL (4.0-10.0)
[2021-03-19 17:19] LABS: Alanine Aminotransferase 10 U/L (0-33); Albumin Level 4.3 g/dL (3.5-5.2); Alkaline Phosphatase 71 IU/L (35-105); Anion Gap 13.6 (5-19); Aspartate Amino Transferase 21 U/L (0-32); Blood Urea Nitrogen 20 mg/dL (8-23); C Reactive Protein 1.1 mg/L (0.0-4.9); Calcium 9.3 mg/dL (8.5-10.5); Carbon Dioxide 27 mmol/L (22-29); Chloride 98 mmol/L (98-107); Globulin 3.2 g/dL (1.3-4.6); Glomerular Filtration Rate 55.6 mL/min (90-130); Glucose 109 mg/dL (65-115); Osmolality Calculated 281 mOsm/kg (285-295); Potassium 4.6 mmol/L (3.5-5.1); Sodium 134 mmol/L (136-145); Total Bilirubin 0.3 mg/dL (0.15-1.2); Total Protein 7.5 g/dL (6.6-8.7)
[2021-03-19 20:18] LABS: Erythrocyte Sedimentation Rate 18 mm/hr (0-15)
== END 2021-03-19 16:03 | disposition home or self-care (01) ==
PROVIDERS: PCP Family Medicine; Visit Provider Internal Medicine
DX: I73.9 Peripheral vascular disease, unspecified (principal); Z79.899 Other long term (current) drug therapy
CPT/HCPCS: 36415; 80053; 82248; 85025; 85651; 86140

== ENCOUNTER → 2021-03-20 14:44 | Outpatient (BNVA) | payer MEDICARE, OTHER, SELFPAY | PROVIDERS: PCP Family Medicine; Visit Provider Internal Medicine | DX: I73.9 Peripheral vascular disease, unspecified (principal); R76.8 Other specified abnormal immunological findings in serum; B02.29 Other postherpetic nervous system involvement; Z79.899 Other long term (current) drug therapy; R70.0 Elevated erythrocyte sedimentation rate; F17.210 Nicotine dependence, cigarettes, uncomplicated | CPT/HCPCS: 81001; 81003; 87086; 99213; 99214 ==

== ENCOUNTER → 2021-03-25 11:52 | Outpatient (BNVA) | payer MEDICARE, OTHER, SELFPAY | PROVIDERS: PCP Family Medicine; Visit Provider Internal Medicine | DX: R11.0 Nausea (principal); Z01.812 Encounter for preprocedural laboratory examination | CPT/HCPCS: 87635 ==

== ENCOUNTER 2021-03-31 09:58 | Day surgery (SDC) | payer MEDICARE, OTHER, SELFPAY ==
[2021-03-28 08:20] VITALS: BMI 22.1
--- NOTE | 2021-03-31 09:46 | W.PM.OPSFHP ---
Same Day Surgery H&P Indication for Procedure/HPI DATE OF PROCEDURE: March 31, 2021 CHIEF COMPLAINT/INDICATIONFOR SURGICAL PROCEDURE: Frequent nausea and weight loss PREOP DIAGNOSIS: Severe peripheral vascular disease, lifestyle limiting claudication PLANNED PROCEDRUE: Operation Date: 03/31/21 11:30 Proposed Procedures p EGD 49222 G0121 R11.0(Not Applicable) - Hilton Mccabe MD s Colonoscopy(Not Applicable) - Hilton Mccabe MD Medications/Allergies* Home Medications Medication Instructions Recorded Confirmed Type amlodipine 10 mg tablet 10 mg PO DAILY 05/27/20 03/28/21 History aspirin 81 mg tablet,delayed 81 mg PO DAILY 05/27/20 03/28/21 History release isosorbide mononitrate 30 mg 30 mg PO DAILY 05/27/20 03/28/21 History tablet,extended release 24 hr lidocaine 5 % topical patch 1 patch TOPICAL DAILY 05/27/20 03/28/21 History lorazepam 1 mg tablet 1 mg PO BID PRN 05/27/20 03/28/21 History polyethylene glycol 3350 8.5 gram 8.5 gm PO DAILY 05/27/20 03/28/21 History oral powder packet methimazole 10 mg tablet 5 mg PO .qod tab 09/12/20 03/28/21 History lisinopril 20 1 tab PO DAILY 11/01/20 03/28/21 History mg-hydrochlorothiazide 12.5 mg tablet atorvastatin 80 mg PO BEDTIME 01/31/21 03/28/21 History morphine 15 mg PO Q12H 02/03/21 03/28/21 History morphine 15 mg PO Q12H PRN 02/03/21 03/28/21 History nitroglycerin 0.4 mg SUBLINGUAL Q5M PRN 02/03/21 03/28/21 History pregabalin [Lyrica] 75 mg PO BID 02/03/21 03/28/21 History calcium carbonate 600 mg(1,500 1 tab PO DAILY 03/19/21 03/28/21 History mg)-vitamin D3 800 unit chewable tablet linaclotide 290 mcg capsule 290 mcg PO DAILY 03/19/21 03/28/21 History Reglan 5 mg PO Q8H PRN 03/28/21 03/28/21 History Allergies/Adverse Reactions Allergy/AdvReac Type Severity Reaction Status Date / Time No Known Allergies Allergy Verified 03/20/21 15:08 Pertinent History/Comorbid Conditions* Medical History (Updated 03/19/21 @ 15:35 by Hilton Mccabe MD) Claudication of both lower extremities Hx of herpes zoster Pain management contract signed Peripheral arterial disease Family History (Updated 05/27/20 @ 10:16 by Venecia Miller LPN) Denies family history of Diabetes CAD (coronary artery disease) Clotting disorder Dementia Hyperlipidemia Chronic kidney disease (CKD) Anesthesia complication Bleeding disorder Family history of premature coronary artery disease Lung disease Cancer Hypertension Social History Smoking and tobacco status: current every day smoker cigarettes Packs smoked per day: 1.25 Alcohol intake: never Pertinent Exam Findings alert, oriented x 3, clear to auscultation bilaterally, regular rate & rhythm, operative site marked and procedure specific exam findings Recommendations Surgery/Procedure today Coding Level of Care Code Acute 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
--- NOTE | 2021-03-31 10:14 | ANES.PREANE2 ---
Pre-Anesthetic Assessment Pre-Anesthetic Assessment: Height/Weight: Height 1.68 m Weight 62.142 kg Preop Diagnosis: Severe peripheral vascular disease, lifestyle limiting claudication Proposed Procedure: Operation Date: 03/31/21 11:30 Proposed Procedures p EGD 40865 G0121 R11.0(Not Applicable) - Hilton Mccabe MD s Colonoscopy(Not Applicable) - Hilton Mccabe MD Familial anesthetic complications: none Was Beta Viviana taken within 24 hours: N/A Was Clonidine taken within 24 hours: N/A Last intake: NPO > 8 hrs Not holding plavix - has stent in leg Social: Social History: Tobacco and No alcohol Exam: Pre-Anes Outpt Exam: alert, oriented x 3, clear to auscultation bilaterally and regular rate & rhythm Airway: Cervical ROM: WNL MP: 3 Dentition: Chipped, False and Partials Pulmonary: Pulmonary: COPD CV/HEM: CV/HEM: HTN and PVD Hepatic: Comments: hx of elevated LFTs Metabolic: Metabolic: Hyperlipidemia Comments: lupus Musc/skel: Comments: LUpus Neuropsych: Neuropsych: Neuropathy (legs) Anesthetic Plan: ASA status: 3 Anesthesia: MAC Risk of > 500 ml blood loss (7ml/kg in children): No PFSH Anesthesia PFSH: Medical History Claudication of both lower extremities Hx of herpes zoster Pain management contract signed Peripheral arterial disease Family History Denies family history of Diabetes CAD (coronary artery disease) Clotting disorder Dementia Hyperlipidemia Chronic kidney disease (CKD) Anesthesia complication Bleeding disorder Family history of premature coronary artery disease Lung disease Cancer Hypertension Social History Smoking and tobacco status: current every day smoker cigarettes Packs smoked per day: 1.25 Alcohol intake: never Data Anesthesia Cardiac Studies: No Data to Display
[2021-03-31 10:44] VITALS: BP 116/74; PULSE 73; RESP 18; TEMP 36.7; O2SAT 94
[2021-03-31] MEDS: sodium chloride 0.9% 1,000 ML 30 ML IV (10:46)
[2021-03-31 11:38] VITALS: BP 101/62; PULSE 95; RESP 18; TEMP 36.3; O2SAT 96
[2021-03-31 11:48] VITALS: BP 101/62; PULSE 93; RESP 18; O2SAT 95
--- NOTE | 2021-03-31 14:23 | ANE.PACU2 ---
Inpatient post-anesthesia follow up: Airway intact: Yes Vital signs: Temperature 97.4 F Pulse Rate 93 Respiratory Rate 18 Blood Pressure 101/62 Pulse Oximetry 95 Oxygen Delivery Me thod Room Air Oxygen Flow Rate Fraction of Inspir ed Oxygen Hydration adequate: Yes Nausea and vomiting: No Pain level: 2 Mental status: Baseline
[2021-04-01 14:13] LABS: H. Pylori / CLO Test Negative
== END 2021-03-31 12:23 | disposition home or self-care (01) ==
PROVIDERS: PCP Family Medicine; Visit Provider Internal Medicine
PROC: 0DJ08ZZ Inspection of Upper Intestinal Tract, Via Natural or Artificial Opening Endoscopic (ICD-10-PCS; CPT 43235; principal; 2021-03-31 11:30)
PROC: 0DJD8ZZ Inspection of Lower Intestinal Tract, Via Natural or Artificial Opening Endoscopic (ICD-10-PCS; CPT 45378; 2021-03-31 11:30)
DX: R11.0 Nausea (principal); R63.4 Abnormal weight loss; Z68.22 Body mass index [BMI] 22.0-22.9, adult; Z79.82 Long term (current) use of aspirin; F17.210 Nicotine dependence, cigarettes, uncomplicated; D12.2 Benign neoplasm of ascending colon; K29.70 Gastritis, unspecified, without bleeding; Z79.02 Long term (current) use of antithrombotics/antiplatelets; J44.9 Chronic obstructive pulmonary disease, unspecified; I10 Essential (primary) hypertension; E78.5 Hyperlipidemia, unspecified
CPT/HCPCS: 43239; 45385; 87077; 88305; 96360; J2704; J3490; J7030

== ENCOUNTER → 2021-04-02 11:32 | Outpatient (BNVA) | payer MEDICARE, OTHER, SELFPAY | PROVIDERS: PCP Family Medicine; Visit Provider Obstetrics & Gynecology | DX: N95.0 Postmenopausal bleeding (principal) | CPT/HCPCS: 87635 ==

== ENCOUNTER 2021-04-03 11:53 | Day surgery (SDC) | payer MEDICARE, OTHER, SELFPAY ==
[2021-04-03 11:49] VITALS: BMI 22.1
--- NOTE | 2021-04-03 11:54 | ECG_ITS ---
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 Measurements Intervals [place] Rate: 65 P: 53 [place]: 156 QRS: 18 QRSD: 69 T: 59 QT: 369 QTc: 385 Interpretive Statements SINUS RHYTHM POSSIBLE ANTERIOR MYOCARDIAL INFARCTION [30 ms Q WAVE IN V3/V4, OR R < 0.2 mV IN V4], OF INDETERMINATE AGE Compared to ECG 06/26/2019 14:00:49 Myocardial infarct finding now present Poor R-wave progression no longer present Electronically Signed On 04-03-2021 17:06:46 CDT by Santy Sen M.D. [id number]
[2021-04-03 12:18] LABS: Basophils # 0.1 10^3/uL (0.0-0.1); Basophils % 0.7 %; Eosinophils # 0.3 10^3/uL (0.0-0.8); Eosinophils % 2.4 %; Hematocrit 40.8 % (37.0-47.0); Hemoglobin 13.7 g/dL (11.5-15.3); Lymphocytes % 28.1 %; Mean Corpuscular HGB Conc 33.6 g/dL (30.0-36.0); Mean Corpuscular Hemoglobin 31.9 pg (28.0-34.0); Mean Corpuscular Volume 95.1 fL (81-99); Mean Platelet Volume 10.3 fL (7.4-10.4); Monocytes # 0.8 10^3/uL (0.2-0.9); Monocytes % 7.4 %; Neutrophils # 6.45 10^3/uL (1.8-7.7); Neutrophils % 61.2 %; Nucleated Red Blood Cells % 0 %; Platelet Count 205 10^3/cmm (130-400); Red Blood Count 4.29 10^6/uL (4.1-5.3); Red Cell Distribution Width 11.9 % (12.1-15.1); White Blood Count 10.5 10^3/uL (4.0-10.0)
[2021-04-03 12:37] LABS: Alanine Aminotransferase 10 U/L (0-33); Alkaline Phosphatase 81 IU/L (35-105); Aspartate Amino Transferase 19 U/L (0-32); Blood Urea Nitrogen 15 mg/dL (8-23); Calcium 9.4 mg/dL (8.5-10.5); Carbon Dioxide 30 mmol/L (22-29); Chloride 99 mmol/L (98-107); Glomerular Filtration Rate 62.8 mL/min (90-130); Glucose 142 mg/dL (65-115); Osmolality Calculated 291 mOsm/kg (285-295); Sodium 139 mmol/L (136-145); Total Bilirubin 0.3 mg/dL (0.15-1.2)
--- NOTE | 2021-04-03 12:45 | ANES.PREANE2 ---
Pre-Anesthetic Assessment Pre-Anesthetic Assessment: Height/Weight: Height 1.68 m Weight 62.142 kg Preop Diagnosis: cervical mass, pmb Proposed Procedure: Operation Date: 04/08/21 07:00 Proposed Procedures p Hysteroscopy w/ Myosure [id number](Not Applicable) - Brandy Augustine MD s Dilation And Curettage (D&C)(Not Applicable) - Brandy Augustine MD Familial anesthetic complications: none Social: Social History: No alcohol and No tobacco Exam: Pre-Anes Outpt Exam: alert, oriented x 3 and regular rate & rhythm Additional Exam Findings (including area of procedure): caorse breath sounds/bl Airway: Cervical ROM: WNL MP: 3 Dentition: Chipped, False and Partials Pulmonary: Pulmonary: COPD CV/HEM: CV/HEM: HTN and PVD (stent in leg place 02/03/21, has to take plavix for 3 months) Comments: need to check and make sure Dr. Augustine ok with doing procedure on plavix Metabolic: Comments: lupus Anesthetic Plan: ASA status: 3 Anesthesia: General Risk of > 500 ml blood loss (7ml/kg in children): No PFSH Anesthesia PFSH: Medical History Claudication of both lower extremities Hx of herpes zoster Pain management contract signed Peripheral arterial disease Family History Denies family history of Diabetes CAD (coronary artery disease) Clotting disorder Dementia Hyperlipidemia Chronic kidney disease (CKD) Anesthesia complication Bleeding disorder Family history of premature coronary artery disease Lung disease Cancer Hypertension Data Anesthesia CBC & Chem 7: 04/03/21 12:05 04/03/21 12:05 Other Labs: Laboratory Results - last 48 hr 04/03/21 04/03/21 12:05 12:05 WBC 10.5 H RBC 4.29 Hgb 13.7 Hct 40.8 MCV 95.1 MCH 31.9 MCHC 33.6 RDW 11.9 L Plt Count 205 MPV 10.3 Neut % (Auto) 61.2 Lymph % (Auto) 28.1 [place] % (Auto) 7.4 Eos % (Auto) 2.4 Baso % (Auto) 0.7 Neut # (Auto) 6.45 Lymph # (Auto) 3.0 [place] # (Auto) 0.8 Eos # (Auto) 0.3 Baso # (Auto) 0.1 Nucleated RBC % (auto) 0 Nucleated RBCs # 0.0 Sodium 139 Potassium 4.0 Chloride 99 Carbon Dioxide 30 H Anion Gap 14.0 BUN 15 Creatinine 0.9 GFR Calculation 62.8 L Glucose 142 H Calculated Osmolality 291 Calcium 9.4 Total Bilirubin 0.3 AST 19 ALT 10 Alkaline Phosphatase 81 Total Protein 7.0 Albumin 4.0 Globulin 3.0 Cardiac Studies: No Data to Display
--- NOTE | 2021-04-03 13:00 | SUR.PREOP ---
[id number] erica beal nurse regarding this pt still taking plavix and surgery to be done on 04/08/21 lian stated she would inform dr maldonado and let us know what she finds out from dr burciaga
--- NOTE | 2021-04-03 13:09 | SUR.PREOP ---
[id number] spoke with lian with dr maldonado office and stated that this pt will need to be postponed and that the office will call the pt to notify her
== END 2021-04-03 15:00 | disposition home or self-care (01) ==
LOC: OR 10-27 11:29
PROVIDERS: PCP Family Medicine; Visit Provider Obstetrics & Gynecology
DX: N95.0 Postmenopausal bleeding (principal); Z53.9 Procedure and treatment not carried out, unspecified reason; J44.9 Chronic obstructive pulmonary disease, unspecified; I10 Essential (primary) hypertension
CPT/HCPCS: 80053; 85025; 93005

== ENCOUNTER → 2021-06-26 13:08 | Outpatient (BNVA) | payer MEDICARE, OTHER, SELFPAY | PROVIDERS: PCP Family Medicine; Visit Provider Obstetrics & Gynecology | DX: Z20.822 Contact with and (suspected) exposure to COVID-19 (principal); N95.0 Postmenopausal bleeding; N88.8 Other specified noninflammatory disorders of cervix uteri | CPT/HCPCS: 87635 ==

== ENCOUNTER 2021-07-01 09:01 | Day surgery (SDC) | payer MEDICARE, OTHER, SELFPAY ==
[2021-06-27 10:20] VITALS: BMI 21.3
[2021-06-27 11:00] LABS: Basophils # 0.1 10^3/uL (0.0-0.1); Basophils % 0.9 %; Eosinophils # 0.2 10^3/uL (0.0-0.8); Eosinophils % 2.1 %; Hematocrit 41.1 % (37.0-47.0); Hemoglobin 13.7 g/dL (11.5-15.3); Lymphocytes # 2.2 10^3/uL (0.8-4.8); Lymphocytes % 26.2 %; Mean Corpuscular HGB Conc 33.3 g/dL (30.0-36.0); Mean Corpuscular Hemoglobin 31.8 pg (28.0-34.0); Mean Corpuscular Volume 95.4 fl (81-99); Mean Platelet Volume 10.5 fL (7.4-10.4); Monocytes # 0.6 10^3/uL (0.2-0.9); Monocytes % 7.8 %; Neutrophils # 5.15 10^3/uL (1.8-7.7); Neutrophils % 62.8 %; Nucleated Red Blood Cells % 0 %; Platelet Count 214 10^3/cmm (130-400); Red Blood Count 4.31 10^6/uL (4.1-5.3); Red Cell Distribution Width 12.8 % (12.1-15.1); White Blood Count 8.2 10^3/uL (4.0-10.0)
--- NOTE | 2021-06-27 11:21 | ANES.PREANE2 ---
Pre-Anesthetic Assessment Pre-Anesthetic Assessment: Height/Weight: Height 1.68 m Weight 59.874 kg Preop Diagnosis: cervical mass, pmb Proposed Procedure: Operation Date: 07/01/21 10:25 Proposed Procedures p Hysteroscopy w/ Myosure 44106 97565 N95.0(Not Applicable) - Brandy Augustine MD s Dilation And Curettage (D&C)(Not Applicable) - Brandy Augustine MD Familial anesthetic complications: None Social: Social History: Tobacco and No alcohol Exam: Pre-Anes Outpt Exam: alert, oriented x 3, clear to auscultation bilaterally and regular rate & rhythm Airway: Cervical ROM: WNL MP: 3 Dentition: False and Partials CV/HEM: CV/HEM: PVD Hepatic: Hepatic: Hepatitis (last fall (lupus)) Metabolic: Metabolic: Thyroid Comments: lupus Anesthetic Plan: ASA status: 3 Anesthesia: General Risk of > 500 ml blood loss (7ml/kg in children): No PFSH Anesthesia PFSH: Medical History Claudication of both lower extremities Hx of herpes zoster Pain management contract signed Peripheral arterial disease Family History Denies family history of Diabetes CAD (coronary artery disease) Clotting disorder Dementia Hyperlipidemia Chronic kidney disease (CKD) Anesthesia complication Bleeding disorder Family history of premature coronary artery disease Lung disease Cancer Hypertension Data Anesthesia CBC & Chem 7: 06/27/21 10:51 06/27/21 10:51 Other Labs: Laboratory Results - last 48 hr 06/27/21 10:51 WBC 8.2 RBC 4.31 Hgb 13.7 Hct 41.1 MCV 95.4 MCH 31.8 MCHC 33.3 RDW 12.8 Plt Count 214 MPV 10.5 H Neut % (Auto) 62.8 Lymph % (Auto) 26.2 [place] % (Auto) 7.8 Eos % (Auto) 2.1 Baso % (Auto) 0.9 Neut # (Auto) 5.15 Lymph # (Auto) 2.2 [place] # (Auto) 0.6 Eos # (Auto) 0.2 Baso # (Auto) 0.1 Nucleated RBC % (auto) 0 Nucleated RBCs # 0.0 Cardiac Studies: No Data to Display
[2021-06-27 12:01] LABS: Anion Gap 13.4 (5-19); Blood Urea Nitrogen 17 mg/dL (8-23); Calcium 8.9 mg/dL (8.5-10.5); Carbon Dioxide 28 mmol/L (22-29); Chloride 100 mmol/L (98-107); Glomerular Filtration Rate 62.8 mL/min (90-130); Glucose 94 mg/dL (65-115); Osmolality Calculated 285 mOsm/kg (285-295); Potassium 4.4 mmol/L (3.5-5.1); Sodium 137 mmol/L (136-145)
[2021-07-01 09:13] VITALS: BP 170/91; PULSE 75; RESP 18; TEMP 37.1; O2SAT 97
[2021-07-01] MEDS: sodium chloride 0.9% 1,000 ML 30 ML IV (09:24)
--- NOTE | 2021-07-01 09:29 | P.ANESUD_ITS ---
Pre-Anesthetic Update Pre-Anesthetic Assessment: Date of Surgery/Procedure: 07/01/21 Preop Mireya gnosis: cervical mass, pmb Proposed Procedure: Operation Date: 07/01/21 10:25 Proposed Procedures p Hysteroscopy w/ Myosure 84113 32029 N95.0(Not Applicable) - Brandy Augustine MD s Dilation And Curettage (D&C)(Not Applicable) - Brandy Augustine MD Any changes to Pre-Anesthetic Assessment?: No Last Intake: Intake Last Liquid Date 06/30/21 Last Liquid Time 20:00 Last Solid Date 06/30/21 Last Solid Time 20:00 Vitals: Temperature 98.7 F 07/01/21 09:13 Temperature Source Temporal Artery S can 07/01/21 09:13 Pulse Rate 75 07/01/21 09:13 Respiratory Rate 18 07/01/21 09:13 Blood Pressure 170/91 07/01/21 09:13 Blood Pressure Merari n 117 07/01/21 09:13 Pulse Oximetry 97 07/01/21 09:13 Oxygen Delivery Me thod 07/01/21 09:14 Exam: Pre-Anes Outpt Exam: alert, oriented x 3, clear to auscultation bilaterally and regular rate & rhythm Cardiac Studies: No Data to Display
--- NOTE | 2021-07-01 10:13 | W.PM.OPSUD ---
Surgery/Procedure H&P Update DATE OF PROCEDURE: July 01, 2021 DATE H&P PERFORMED: 06/26/21 H&P UPDATE INFORMATION: I have reviewed H&P completed within last 30 days, I have examined patient prior to procedure and No changes to prior documentation PREOP DIAGNOSIS: cervical mass, pmb PLANNED PROCEDURE: Operation Date: 07/01/21 10:25 Proposed Procedures p Hysteroscopy w/ Myosure [id number] N95.0(Not Applicable) - Brandy Augustine MD s Dilation And Curettage (D&C)(Not Applicable) - Brandy Augustine MD
--- NOTE | 2021-07-01 11:08 | PM.OP ---
Operative Report Date of procedure: July 01, 2021 Pre-op Diagnosis: cervical mass, pmb Post-op diagnosis: same Post-op Findings: uterine septum, left sided uterine mass left sided cervical mass- removed Procedure Done: hysteroscopy, dilation and curettage with myosure Specimens removed/disposition: endometrial curettings to pathology Surgeon: Brandy Augustine Anesthesia: General Estimated blood loss (mL): 50 IV fluids (mL): 500 Complications: none Findings: 8 week sized uterus, hysteroscopy deficit of 1800 ml Condition: stable Disposition: PACU Brief History: The patient presented for PMB. She had an ultrasound which showed a cervical mass. Procedure: The patient was taken to the operating room where monitored anesthesia was administered and to be adequate. She was prepped and draped in the normal sterile fashion in the dorsal lithotomy position in [facility]. A weighted speculum was placed into the vagina and the anterior lip of the cervix grasped with a single-tooth tenaculum. The uterus was sounded to 8 cm. The cervix was dilated to 16 [place]. The hysteroscope was advanced into the endometrial cavity. There was a fairly large uterine septum present along with some extra tissue along the left uterine sidewall and left cervix visualized. The MyoSure device was activated and the tissue was removed. Pictures were taken pre and post procedure. There was some bleeding post procedure. Pitocin was given. The bleeding slowed significantly. Vaginal packing was placed and will be removed prior to discharge. All instruments were removed. The patient tolerated the procedure well. Sponge lap and needle counts were correct x3. She was taken to the recovery room in stable condition.
[2021-07-01 11:10] VITALS: BP 121/47; PULSE 73; RESP 18; TEMP 36.4; O2SAT 100
--- NOTE | 2021-07-01 11:14 | P.PCN_ITS ---
PACU note PACU note: VSS, Good respiratory effort, report to PHARMACEUTICAL SALESPERSON Post-Anesthesia Exam: awake
--- NOTE | 2021-07-01 11:14 | PM.PACU ---
PACU note PACU note: VSS, Good respiratory effort, report to WATER POLLUTION CONTROL INSPECTOR Post-Anesthesia Exam: awake
[2021-07-01 11:15] VITALS: BP 119/63; PULSE 71; RESP 18; O2SAT 98
--- NOTE | 2021-07-01 11:16 | PM.DCS ---
Discharge Providers Date of Discharge: July 01, 2021 Attending Provider at Discharge: Brandy Augustine MD Primary Care Provider: Lizzette Tucker MD Diagnoses at Discharge Discharge Diagnosis (1) Postoperative state: Status: Acute Reason for Visit Reason for Visit: hysteroscopy Hospital Course Hospital Course The patient was admitted for surgery. She did well postoperatively and was ready for discharge. Discharge Data Data Completed and Pending: Pending at discharge Category Date Time Status Pathology: Surgic al [PTH] Routine Pth 07/01/21 11:06 Ordered Vitals: Last Vital Signs Temp 98.7 F 07/01/21 09:13 Pulse 75 07/01/21 09:13 Resp 18 07/01/21 09:13 BP 170/91 07/01/21 09:13 Pulse Ox 97 07/01/21 09:13 Discharge Plan Discharge Patient Disposition: Home Condition: Stable Prescriptions: Continued lisinopril-hydrochlorothiazide 20-12.5 mg tablet 1 tab PO DAILY RF: 0 amlodipine 10 mg tablet 10 mg PO DAILY RF: 0 isosorbide mononitrate 30 mg tablet extended release 24 hr 30 mg PO DAILY RF: 0 lorazepam 1 mg tablet 1 mg PO BID PRN (Reason: Anxiety) RF: 0 polyethylene glycol 3350 8.5 gram powder in packet 8.5 gm PO DAILY RF: 0 methimazole 10 mg tablet 5 mg PO .qod RF: 0 lidocaine 5 % adhesive patch,medicated 1 patch TOPICAL DAILY PRN (Reason: Pain) RF: 0 Linzess 290 mcg capsule 290 mcg PO DAILY RF: 0 Caltrate 600 plus D 600 mg (1,500 mg)-800 unit tablet,chewable 1 tab PO DAILY RF: 0 aspirin [Adult Aspirin Regimen] 81 mg tablet,delayed release (DR/EC) 81 mg PO DAILY RF: 0 omeprazole 40 mg capsule,delayed release(DR/EC) 40 mg PO DAILY Qty: 30 RF: 2 ondansetron HCl 8 mg Tablet 8 mg PO Q8H PRN (Reason: Nausea) RF: 0 morphine 15 mg tablet 15 mg PO BID PRN (Reason: Pain) RF: 0 atorvastatin 80 mg tablet 80 mg PO BEDTIME RF: 0 nitroglycerin 0.4 mg Tablet, Sublingual 0.4 mg SUBLINGUAL Q5M PRN (Reason: Chest Pain) RF: 0 morphine 15 mg Tablet Extended Release 15 mg PO Q12H RF: 0 pregabalin [Lyrica] 100 mg capsule 100 mg PO BID RF: 0 Discharge Orders: Discharge Order (Routine); Ordered 07/01/21 Ordered By: Brandy Augustine Discharge Attestations Time Spent in Discharge Care*: less than 30 min Quality Metrics Clinical Quality Measures During this hospital stay, did patient experience: None Coding Level of Care Code Acute Chg DC note Diagnoses Postoperative state Z98.890
[2021-07-01 11:20] VITALS: BP 120/58; PULSE 74; RESP 18; TEMP 36.4; O2SAT 94
[2021-07-01 11:26] VITALS: BP 123/63; PULSE 68; RESP 18; TEMP 36.4; O2SAT 96
[2021-07-01 11:41] VITALS: BP 125/65; PULSE 67; RESP 18; TEMP 36.5; O2SAT 95
--- NOTE | 2021-07-01 15:36 | ANE.PACU2 ---
Inpatient post-anesthesia follow up: Airway intact: Yes Vital signs: Temperature 97.7 F Pulse Rate 67 Respiratory Rate 18 Blood Pressure 125/65 Pulse Oximetry 95 Oxygen Delivery Me thod Room Air Oxygen Flow Rate Fraction of Inspir ed Oxygen Hydration adequate: Yes Nausea and vomiting: No Pain level: 2 Mental status: Baseline
== END 2021-07-01 12:19 | disposition home or self-care (01) ==
PROVIDERS: PCP Family Medicine; Visit Provider Obstetrics & Gynecology
PROC: 0UDB8ZZ Extraction of Endometrium, Via Natural or Artificial Opening Endoscopic (ICD-10-PCS; CPT 58558; principal; 2021-07-01 10:15)
PROC: (CPT 58120; 2021-07-01 10:15)
DX: N95.0 Postmenopausal bleeding (principal); Q51.28 Other and unspecified doubling of uterus; Z79.82 Long term (current) use of aspirin; F17.210 Nicotine dependence, cigarettes, uncomplicated
CPT/HCPCS: 58558; 80048; 85025; 88305; 96365; J0330; J0690; J1100; J1170; J2405; J2704; J2710; J3010; J3490; J7030

== ENCOUNTER 2021-07-01 15:56 | Inpatient (IN) | payer MEDICARE, OTHER, SELFPAY ==
[2021-07-01] VITALS (17 sets, daily range): BP systolic 85–155; BP diastolic 44–78; PULSE 59–69; RESP 16–23; TEMP 36.5–36.8; O2SAT 94–100; BMI 21.3
--- NOTE | 2021-07-01 16:11 | ED_ITS ---
Documented by User: Humble Garcia MD 07/03/21 20:47 HPI - General Adult General: Chief complaint: Syncope Stated complaint: MULTIPLE SYNCOPAL EPISODES Time Seen by Provider: 07/01/21 16:10 History of Present Illness: HPI narrative: Ms. Lamb is a 65-year-old lady with significant past medical history of CAD status post PCI and dysfunctional postmenopausal bleeding who presents the emergency department due to multiple episodes of syncope. She underwent D&C today and postoperatively felt weak. She had multiple episodes of syncope of unclear circumstances. She recalls waking up on the ground but does not recall actually falling and therefore does not recall any specific provoking or associated factors. Her medications including holding plavix were adjusted prior to procedure. She feels generalized malaise which is moderate in intensity. Overall the course of symptoms has persisted. She has associated left-sided cramping abdominal pain as well. No other specific exacerbating alleviating factors identified. Review of Systems General: Reports: 10 or more systems reviewed and unremarkable except in HPI and below Narrative: CONSTITUTIONAL: see hpi EYES - denies pain, denies loss of vision EARS - denies ear issues. NOSE - denies congestion or rhinorrhea. THROAT - de nies sore throat or difficulty swallowing. CARDIOVASCULAR - denies chest pain and palpitations RESPIRATORY - denies shortness of breath and cough GASTROINTESTINAL - see hpi GENITOURINARY - denies dysuria or urinary frequency MUSCULOSKELETAL- denies deformity or pain SKIN - denies rashes or new changed skin lesions NEUROLOGIC - see hpi HEMATOLOGIC/LYMPHATIC - denies easy bruising or lymphadenopathy. [facility] ED PFSH: Medical History Claudication of both lower extremities Hx of herpes zoster Pain management contract signed Peripheral arterial disease Family History Denies family history of Diabetes CAD (coronary artery disease) Clotting disorder Dementia Hyperlipidemia Chronic kidney disease (CKD) Anesthesia complication Bleeding disorder Family history of premature coronary artery disease Lung disease Cancer Hypertension Physical Exam Narrative: EXAM NARRATIVE: GENERAL/CONSTITUTIONAL - ill-appearing. No acute distress. Eyes - PERRL, no conjunctival injection ENMT - Atraumatic external nose and ears. dry mucous membranes NECK - supple. trachea midline CARDIOVASCULAR - regular rate and rhythm. Peripheral pulses 2+ and equal RESPIRATORY -clear to auscultation bilaterally. No retractions or accessory muscle use. ABDOMEN/GI - generalized tenderness to palp. Nondistended. mild tenderness to percussion MSK - Extremities without obvious deformity or tenderness to palpation SKIN - pale, Dry NEURO - alert and appropriately oriented. strength and sensation intact. Moves all extremities equally. PSYCH - Appropriate mood and affect Course ED course: - patient seen and evaluated by me at bedside - vital signs obtained, IV access, placed on monitor - inital eval notable for ill appearance. mildly hypotensive. abdominal exam with tenderness as noted. scant blood in underwear without active external hemorrhage. - fluids ordered - hemoglobin okay on labs. - Imaging ordered - patient handed over to overnight physician pending CT results. Vital Signs: Vital signs: Vital Signs Temperature 97.9 F 07/03/21 19:37 Pulse Rate 71 07/03/21 19:37 Respiratory Rate 17 07/03/21 20:26 Blood Pressure 133/71 07/03/21 19:37 Pulse Oximetry 94 07/03/21 18:35 MDM - General Adult Medical Records: Attestation: I reviewed the patient's medical records. Lab Data: Attestation: I reviewed the patient's lab results. Labs: Lab Results 07/01/21 07/01/21 07/01/21 Range/Units 16:15 16:15 16:15 WBC 10.7 H (4.0-10.0) 10^3/ uL RBC 3.24 L (4.1-5.3) 10^6/u L Hgb 10.1 L (11.5-15.3) g/dL Hct 32.4 L (37.0-47.0) % MCV 100.0 H (81-99) fl MCH 31.2 (28.0-34.0) pg MCHC 31.2 (30.0-36.0) g/dL RDW 13.0 (12.1-15.1) % Plt Count 247 (130-400) 10^3/c mm MPV 11.4 H (7.4-10.4) fL Neut % (Auto) 75.3 % Lymph % (Auto) 21.6 % Bladen % (Auto) 2.0 % Eos % (Auto) 0.1 % Baso % (Auto) 0.4 % Neut # (Auto) 8.03 H (1.8-7.7) 10^3/u L Lymph # (Auto) 2.3 (0.8-4.8) 10^3/u L Bladen # (Auto) 0.2 (0.2-0.9) 10^3/u L Eos # (Auto) 0.0 (0.0-0.8) 10^3/u L Baso # (Auto) 0.0 (0.0-0.1) 10^3/u L Nucleated RBC % (a uto) 0 % Nucleated RBCs # 0.0 /100WBC Sodium 135 L (136-145) mmol/L Potassium 4.2 (3.5-5.1) mmol/L Chloride 101 (98-107) mmol/L Carbon Dioxide 16 L (22-29) mmol/L Anion Gap 22.2 H (5-19) BUN 14 (8-23) mg/dL Creatinine 1.2 H (0.5-0.9) mg/dL GFR Calculation 45.1 L (90-130) mL/min Glucose 320 H (65-115) mg/dL Calculated Osmolal ity 293 (285-295) mOsm/k g Lactate (0.5-2.2) mmol/L Calcium 8.3 L (8.5-10.5) mg/dL Magnesium 1.8 (1.7-2.3) mg/dL Total Bilirubin 0.2 (0.15-1.2) mg/dL AST 105 H (0-32) U/L ALT 90 H (0-33) U/L Alkaline Phosphata se 113 H (35-105) IU/L Troponin T Baselin e 15 H (0-10) ng/L Troponin T 120 Min [place] (0-10) ng/L Delta Troponin T Total Protein 5.5 L (6.6-8.7) g/dL Albumin 3.1 L (3.5-5.2) g/dL Globulin 2.4 (1.3-4.6) g/dL TSH 3.54 (0.27-4.20) uIU/ mL Blood Type Rho(D) Type Antibody Screen Crossmatch 07/01/21 07/01/21 07/01/21 Range/Units 18:37 19:42 19:42 WBC (4.0-10.0) 10^3/ uL RBC (4.1-5.3) 10^6/u L Hgb (11.5-15.3) g/dL Hct (37.0-47.0) % MCV (81-99) fl MCH (28.0-34.0) pg MCHC (30.0-36.0) g/dL RDW (12.1-15.1) % Plt Count (130-400) 10^3/c mm MPV (7.4-10.4) fL Neut % (Auto) % Lymph % (Auto) % Bladen % (Auto) % Eos % (Auto) % Baso % (Auto) % Neut # (Auto) (1.8-7.7) 10^3/u L Lymph # (Auto) (0.8-4.8) 10^3/u L Bladen # (Auto) (0.2-0.9) 10^3/u L Eos # (Auto) (0.0-0.8) 10^3/u L Baso # (Auto) (0.0-0.1) 10^3/u L Nucleated RBC % (a uto) % Nucleated RBCs # /100WBC Sodium (136-145) mmol/L Potassium (3.5-5.1) mmol/L Chloride (98-107) mmol/L Carbon Dioxide (22-29) mmol/L Anion Gap (5-19) BUN (8-23) mg/dL Creatinine (0.5-0.9) mg/dL GFR Calculation (90-130) mL/min Glucose (65-115) mg/dL Calculated Osmolal ity (285-295) mOsm/k g Lactate 5.4 H* (0.5-2.2) mmol/L Calcium (8.5-10.5) mg/dL Magnesium (1.7-2.3) mg/dL Total Bilirubin (0.15-1.2) mg/dL AST (0-32) U/L ALT (0-33) U/L Alkaline Phosphata se (35-105) IU/L Troponin T Baselin e (0-10) ng/L Troponin T 120 Min [place] 15.92 H (0-10) ng/L Delta Troponin T Not Reportable Total Protein (6.6-8.7) g/dL Albumin (3.5-5.2) g/dL Globulin (1.3-4.6) g/dL TSH (0.27-4.20) uIU/ mL Blood Type O Positive Rho(D) Type Positive Antibody Screen Negative Crossmatch See Detail 07/01/21 Range/Units 19:42 WBC (4.0-10.0) 10^3/ uL RBC (4.1-5.3) 10^6/u L Hgb 7.4 L (11.5-15.3) g/dL Hct 24.4 L (37.0-47.0) % MCV (81-99) fl MCH (28.0-34.0) pg MCHC (30.0-36.0) g/dL RDW (12.1-15.1) % Plt Count (130-400) 10^3/c mm MPV (7.4-10.4) fL Neut % (Auto) % Lymph % (Auto) % Bladen % (Auto) % Eos % (Auto) % Baso % (Auto) % Neut # (Auto) (1.8-7.7) 10^3/u L Lymph # (Auto) (0.8-4.8) 10^3/u L Bladen # (Auto) (0.2-0.9) 10^3/u L Eos # (Auto) (0.0-0.8) 10^3/u L Baso # (Auto) (0.0-0.1) 10^3/u L Nucleated RBC % (a uto) % Nucleated RBCs # /100WBC Sodium (136-145) mmol/L Potassium (3.5-5.1) mmol/L Chloride (98-107) mmol/L Carbon Dioxide (22-29) mmol/L Anion Gap (5-19) BUN (8-23) mg/dL Creatinine (0.5-0.9) mg/dL GFR Calculation (90-130) mL/min Glucose (65-115) mg/dL Calculated Osmolal ity (285-295) mOsm/k g Lactate (0.5-2.2) mmol/L Calcium (8.5-10.5) mg/dL Magnesium (1.7-2.3) mg/dL Total Bilirubin (0.15-1.2) mg/dL AST (0-32) U/L ALT (0-33) U/L Alkaline Phosphata se (35-105) IU/L Troponin T Baselin e (0-10) ng/L Troponin T 120 Min [place] (0-10) ng/L Delta Troponin T Total Protein (6.6-8.7) g/dL Albumin (3.5-5.2) g/dL Globulin (1.3-4.6) g/dL TSH (0.27-4.20) uIU/ mL Blood Type Rho(D) Type Antibody Screen Crossmatch Discharge Plan Discharge Patient Disposition: Admitted As Inpatient Admit Provider: Brandy Augustine Clinical Impression: Post-operative haemorrhage Condition: Stable Coding Level of Care Code ED Applications Systems Engineer for Chg Fwd Documented by User: Angelic Anderson MD 07/01/21 20:17 HPI - General Adult General: Chief complaint: Syncope Stated complaint: MULTIPLE SYNCOPAL EPISODES Time Seen by Provider: 07/01/21 16:10 [facility] ED PFSH: Medical History Claudication of both lower extremities Hx of herpes zoster Pain management contract signed Peripheral arterial disease Family History Denies family history of Diabetes CAD (coronary artery disease) Clotting disorder Dementia Hyperlipidemia Chronic kidney disease (CKD) Anesthesia complication Bleeding disorder Family history of premature coronary artery disease Lung disease Cancer Hypertension Course Vital Signs: Vital signs: Vital Signs Temperature 97.9 F 07/03/21 19:37 Pulse Rate 71 07/03/21 19:37 Respiratory Rate 17 07/03/21 20:26 Blood Pressure 133/71 07/03/21 19:37 Pulse Oximetry 94 07/03/21 18:35 MDM - General Adult MDM Narrative: Medical decision making narrative: I took patient over from Dr. Yu. Patient CT scan came back with a large amount of blood in her abdomen likely postoperative hemorrhage. Patient became hypotensive here so I did give her uncrossed blood as she was becoming unstable. Her hemoglobin did drop to 7.4. I spoke to OB Dr. Augustine who came and saw the patient is going to take to the OR. Blood pressure after transfusion is now improved. Lab Data: Labs: Lab Results 07/01/21 07/01/21 07/01/21 Range/Units 16:15 16:15 16:15 WBC 10.7 H (4.0-10.0) 10^3/ uL RBC 3.24 L (4.1-5.3) 10^6/u L Hgb 10.1 L (11.5-15.3) g/dL Hct 32.4 L (37.0-47.0) % MCV 100.0 H (81-99) fl MCH 31.2 (28.0-34.0) pg MCHC 31.2 (30.0-36.0) g/dL RDW 13.0 (12.1-15.1) % Plt Count 247 (130-400) 10^3/c mm MPV 11.4 H (7.4-10.4) fL Neut % (Auto) 75.3 % Lymph % (Auto) 21.6 % Bladen % (Auto) 2.0 % Eos % (Auto) 0.1 % Baso % (Auto) 0.4 % Neut # (Auto) 8.03 H (1.8-7.7) 10^3/u L Lymph # (Auto) 2.3 (0.8-4.8) 10^3/u L Bladen # (Auto) 0.2 (0.2-0.9) 10^3/u L Eos # (Auto) 0.0 (0.0-0.8) 10^3/u L Baso # (Auto) 0.0 (0.0-0.1) 10^3/u L Nucleated RBC % (a uto) 0 % Nucleated RBCs # 0.0 /100WBC Sodium 135 L (136-145) mmol/L Potassium 4.2 (3.5-5.1) mmol/L Chloride 101 (98-107) mmol/L Carbon Dioxide 16 L (22-29) mmol/L Anion Gap 22.2 H (5-19) BUN 14 (8-23) mg/dL Creatinine 1.2 H (0.5-0.9) mg/dL GFR Calculation 45.1 L (90-130) mL/min Glucose 320 H (65-115) mg/dL Calculated Osmolal ity 293 (285-295) mOsm/k g Lactate (0.5-2.2) mmol/L Calcium 8.3 L (8.5-10.5) mg/dL Magnesium 1.8 (1.7-2.3) mg/dL Total Bilirubin 0.2 (0.15-1.2) mg/dL AST 105 H (0-32) U/L ALT 90 H (0-33) U/L Alkaline Phosphata se 113 H (35-105) IU/L Troponin T Baselin e 15 H (0-10) ng/L Troponin T 120 Min [place] (0-10) ng/L Delta Troponin T Total Protein 5.5 L (6.6-8.7) g/dL Albumin 3.1 L (3.5-5.2) g/dL Globulin 2.4 (1.3-4.6) g/dL TSH 3.54 (0.27-4.20) uIU/ mL Blood Type Rho(D) Type Antibody Screen Crossmatch 07/01/21 07/01/21 07/01/21 Range/Units 18:37 19:42 19:42 WBC (4.0-10.0) 10^3/ uL RBC (4.1-5.3) 10^6/u L Hgb (11.5-15.3) g/dL Hct (37.0-47.0) % MCV (81-99) fl MCH (28.0-34.0) pg MCHC (30.0-36.0) g/dL RDW (12.1-15.1) % Plt Count (130-400) 10^3/c mm MPV (7.4-10.4) fL Neut % (Auto) % Lymph % (Auto) % [place]aden % (Auto) % Eos % (Auto) % Baso % (Auto) % Neut # (Auto) (1.8-7.7) 10^3/u L Lymph # (Auto) (0.8-4.8) 10^3/u L Bladen # (Auto) (0.2-0.9) 10^3/u L Eos # (Auto) (0.0-0.8) 10^3/u L Baso # (Auto) (0.0-0.1) 10^3/u L Nucleated RBC % (a uto) % Nucleated RBCs # /100WBC Sodium (136-145) mmol/L Potassium (3.5-5.1) mmol/L Chloride (98-107) mmol/L Carbon Dioxide (22-29) mmol/L Anion Gap (5-19) BUN (8-23) mg/dL Creatinine (0.5-0.9) mg/dL GFR Calculation (90-130) mL/min Glucose (65-115) mg/dL Calculated Osmolal ity (285-295) mOsm/k g Lactate 5.4 H* (0.5-2.2) mmol/L Calcium (8.5-10.5) mg/dL Magnesium (1.7-2.3) mg/dL Total Bilirubin (0.15-1.2) mg/dL AST (0-32) U/L ALT (0-33) U/L Alkaline Phosphata se (35-105) IU/L Troponin T Baselin e (0-10) ng/L Troponin T 120 Min [place] 15.92 H (0-10) ng/L Delta Troponin T Not Reportable Total Protein (6.6-8.7) g/dL Albumin (3.5-5.2) g/dL Globulin (1.3-4.6) g/dL TSH (0.27-4.20) uIU/ mL Blood Type O Positive Rho(D) Type Positive Antibody Screen Negative Crossmatch See Detail 07/01/21 Range/Units 19:42 WBC (4.0-10.0) 10^3/ uL RBC (4.1-5.3) 10^6/u L Hgb 7.4 L (11.5-15.3) g/dL Hct 24.4 L (37.0-47.0) % MCV (81-99) fl MCH (28.0-34.0) pg MCHC (30.0-36.0) g/dL RDW (12.1-15.1) % Plt Count (130-400) 10^3/c mm MPV (7.4-10.4) fL Neut % (Auto) % Lymph % (Auto) % Bladen % (Auto) % Eos % (Auto) % Baso % (Auto) % Neut # (Auto) (1.8-7.7) 10^3/u L Lymph # (Auto) (0.8-4.8) 10^3/u L Bladen # (Auto) (0.2-0.9) 10^3/u L Eos # (Auto) (0.0-0.8) 10^3/u L Baso # (Auto) (0.0-0.1) 10^3/u L Nucleated RBC % (a uto) % Nucleated RBCs # /100WBC Sodium (136-145) mmol/L Potassium (3.5-5.1) mmol/L Chloride (98-107) mmol/L Carbon Dioxide (22-29) mmol/L Anion Gap (5-19) BUN (8-23) mg/dL Creatinine (0.5-0.9) mg/dL GFR Calculation (90-130) mL/min Glucose (65-115) mg/dL Calculated Osmolal ity (285-295) mOsm/k g Lactate (0.5-2.2) mmol/L Calcium (8.5-10.5) mg/dL Magnesium (1.7-2.3) mg/dL Total Bilirubin (0.15-1.2) mg/dL AST (0-32) U/L ALT (0-33) U/L Alkaline Phosphata se (35-105) IU/L Troponin T Baselin e (0-10) ng/L Troponin T 120 Min [place] (0-10) ng/L Delta Troponin T Total Protein (6.6-8.7) g/dL Albumin (3.5-5.2) g/dL Globulin (1.3-4.6) g/dL TSH (0.27-4.20) uIU/ mL Blood Type Rho(D) Type Antibody Screen Crossmatch Imaging Data^: CT Abd/Pel: Attestation: I personally reviewed and interpreted this imaging study as follows: Radiologist's impression: abdomen and pelvis with contrast. Radiation optimization: All CT scans at this facility use at least one of these dose optimization techniques: automated exposure control; mA and/or kV adjustment per patient size (includes targeted exams where dose is matched to clinical indication); or iterative reconstruction. Contrast material: VISI 320; Contrast volume: 95 ml; Contrast route: INTRAVENOUS (IV); [facility] [address] [place] [id number] Scan Report Signed Patient: Isadora Lamb Unit #: [id number] : 1955 Age/Sex: 65 / F ADM Date: 07/01/21 Loc: ER Room/Bed: Attending Dr: Ordering Provider/Ordering MD: Humble Garcia MD Date of Service: 07/01/21 Procedure(s): CT angio chest w abd pel w con Accession Number(s): [id number] Report Number: [id number] PROCEDURE INFORMATION: Exam: CTA Chest With Contrast Exam date and time: 07/01/2021 4:18 PM Age: 65 years old Clinical indication: Abdominal tenderness and other: Cramping; Shortness of breath; Prior surgery; Surgery type: Stents, d c today; Additional info: SOB, syncope, abd pain, post op. Hypotensive, cramping, AMS TECHNIQUE: Imaging protocol: Computed tomographic angiography of the chest with contrast. 3D rendering (Not supervised by radiologist): MIP and/or 3D reconstructed images were created by the technologist. Total images: 1052 Radiation optimization: All CT scans at this facility use at least one of these dose optimization techniques: automated exposure control; mA and/or kV adjustment per patient size (includes targeted exams where dose is matched to clinical indication); or iterative reconstruction. Contrast material: VISI 320; Contrast volume: 95 ml; Contrast route: INTRAVENOUS (IV); COMPARISON: CR XR chest 1V portable [id number] 08/09/2020 7:54 PM RADIATION DOSE METRICS: Total DLP (mGy-cm): 1101.19 FINDINGS: Pulmonary arteries: Pulmonary artery evaluation of good technical quality with no pulmonary artery embolism identified. Aorta: Moderate atherosclerotic disease is evident. Thyroid: 1.8 cm hypoattenuated lesion within an enlarged right thyroid lobe. Lungs: Minimal reticulonodular opacity posteriorly in the right upper lobe may represent minimal atelectasis or small airway disease. 3 mm nodule posteriorly in the superior segment of the left lower lobe. Pleural spaces: Unremarkable. No pneumothorax. No pleural effusion. Heart: Unremarkable. No cardiomegaly. No pericardial effusion. Lymph nodes: Unremarkable. No enlarged lymph nodes. Bones/joints: Unremarkable. No acute fracture. Soft tissues: Unremarkable. IMPRESSION: 1. 1.8 cm hypoattenuated lesion within an enlarged right thyroid lobe. Nonemergent thyroid ultrasound could be considered to further define. 2. No pulmonary artery embolism identified. 3. Minimal reticulonodular opacity posteriorly in the right upper lobe may represent minimal atelectasis or small airway disease. 4. 3 mm nodule posteriorly in the superior segment of the left lower lobe. Consider followup twelve-month CT chest to further define. (Dia et al., Fleischner Society, 2017) COMMENTS: Consistent with the [employer]'s Incidental Findings Committee white paper (J Am Marjorie Radiol 2015): In patients aged 35 years and older with an incidental thyroid nodule equal to or greater than 1.[address], MRI or extrathyroidal US, further evaluation with dedicated thyroid US is recommended for patients with normal life expectancy and without comorbidities. For smaller nodules without suspicious features, no further evaluation or follow up is recommended. PROCEDURE INFORMATION: Exam: CT Abdomen And Pelvis With Contrast Exam date and time: 07/01/2021 4:18 PM Age: 65 years old Clinical indication: Abdominal tenderness and other: Cramping; Shortness of breath; Prior surgery; Surgery type: Stents, d c today; Additional info: SOB, syncope, abd pain, post op. Hypotensive, cramping, AMS TECHNIQUE: Imaging protocol: Computed tomography of the abdomen and pelvis with contrast. Radiation optimization: All CT scans at this facility use at least one of these dose optimization techniques: automated exposure control; mA and/or kV adjustment per patient size (includes targeted exams where dose is matched to clinical indication); or iterative reconstruction. Contrast material: VISI 320; Contrast volume: 95 ml; Contrast route: INTRAVENOUS (IV); COMPARISON: CR XR chest 1V portable [id number] 08/09/2020 7:54 PM RADIATION DOSE METRICS: Total DLP (mGy-cm): 1101.19 FINDINGS: Heart: Lipomatosis of the right atrial and ventricular wall of the heart incidentally noted. Liver: Normal. No mass. Gallbladder and bile ducts: Normal. No calcified stones. No ductal dilation. Pancreas: Normal. No ductal dilation. Spleen: Small low-density area in the periphery of the spleen measures approximately 1.2 cm may represent a peripheral splenic cyst versus small laceration. (AAST Grade1). Adrenal glands: Normal. No mass. Kidneys and ureters: 3.4 cm largest cyst noted in kidneys that have multiple simple renal cysts. No further evaluation required. Stomach and bowel: Unremarkable. No obstruction. No mucosal thickening. Appendix: No evidence of appendicitis. Intraperitoneal space: Moderate amount of free fluid is noted within the abdomen and pelvis with increased density seen within the fluid within the pelvis and felt to represent a hemoperitoneum. Vasculature: Moderate atherosclerotic disease is evident. Lymph nodes: Unremarkable. No enlarged lymph nodes. Urinary bladder: Unremarkable as visualized. Reproductive: Irregular hyperdensity seen within the posterior superior aspect of the uterus which extends in a tubular fashion toward the right adnexal area. Findings may represent active hemorrhage. Bones/joints: Facet joint degenerative changes are present. Soft tissues: Unremarkable. CT/CT angio chest w abd pel w con IMPRESSION: 1. Moderate amount of free fluid is noted within the abdomen and pelvis with increased density seen within the fluid within the pelvis and felt to represent a hemoperitoneum. 2. Irregular hyperdensity seen within the posterior superior aspect of the uterus which extends in a tubular fashion toward the right adnexal area. Findings may represent active hemorrhage. 3. Small low-density area in the periphery of the spleen measures approximately 1.2 cm may represent a peripheral splenic cyst versus small laceration. (AAST Grade1). 4. Lipomatosis of the right atrial and ventricular wall of the heart incidentally noted. COMMENTS: Consistent with the [employer]'s Incidental Findings Committee white paper (J Am Marjorie Radiol 2018): Any incidental renal lesion less than 1 cm or classified as too small to characterize, or any incidental cystic renal lesion characterized as simple-appearing, is likely benign. No follow-up imaging is recommended for these lesions per consensus recommendations based on imaging criteria. Critical Care Time Critical Care Time: Critical Care Time: Yes Total Critical Care Time: 35 Attestation: This case had a high probability of a clinically significant, sudden, or life threatening deterioration of this patient's condition which required my full and direct attention, intervention and personal management. Discharge Plan Discharge Patient Disposition: Admitted As Inpatient Admit Provider: Brandy Augustine Clinical Impression: Post-operative haemorrhage Condition: Stable Coding Level of Care Code ED Applications Systems Engineer for Issa Ji
--- NOTE | 2021-07-01 16:18 | CTR_ITS ---
PROCEDURE INFORMATION: Exam: CTA Chest With Contrast Exam date and time: 07/01/2021 4:18 PM Age: 65 years old Clinical indication: Abdominal tenderness and other: Cramping; Shortness of breath; Prior surgery; Surgery type: Stents, d&c today; Additional info: SOB, syncope, abd pain, post op. Hypotensive, cramping, AMS TECHNIQUE: Imaging protocol: Computed tomographic angiography of the chest with contrast. 3D rendering (Not supervised by radiologist): MIP and/or 3D reconstructed images were created by the technologist. Total images: 1052 Radiation optimization: All CT scans at this facility use at least one of these dose optimization techniques: automated exposure control; mA and/or kV adjustment per patient size (includes targeted exams where dose is matched to clinical indication); or iterative reconstruction. Contrast material: VISI 320; Contrast volume: 95 ml; Contrast route: INTRAVENOUS (IV); COMPARISON: CR XR chest 1V portable [id number] 08/09/2020 7:54 PM RADIATION DOSE METRICS: Total DLP (mGy-cm): 1101.19 FINDINGS: Pulmonary arteries: Pulmonary artery evaluation of good technical quality with no pulmonary artery embolism identified. Aorta: Moderate atherosclerotic disease is evident. Thyroid: 1.8 cm hypoattenuated lesion within an enlarged right thyroid lobe. Lungs: Minimal reticulonodular opacity posteriorly in the right upper lobe may represent minimal atelectasis or small airway disease. 3 mm nodule posteriorly in the superior segment of the left lower lobe. Pleural spaces: Unremarkable. No pneumothorax. No pleural effusion. Heart: Unremarkable. No cardiomegaly. No pericardial effusion. Lymph nodes: Unremarkable. No enlarged lymph nodes. Bones/joints: Unremarkable. No acute fracture. Soft tissues: Unremarkable. IMPRESSION: 1. 1.8 cm hypoattenuated lesion within an enlarged right thyroid lobe. Nonemergent thyroid ultrasound could be considered to further define. 2. No pulmonary artery embolism identified. 3. Minimal reticulonodular opacity posteriorly in the right upper lobe may represent minimal atelectasis or small airway disease. 4. 3 mm nodule posteriorly in the superior segment of the left lower lobe. Consider followup twelve-month CT chest to further define. (Dia et al., Fleischner Society, 2017) COMMENTS: Consistent with the [employer]'s Incidental Findings Committee white paper (J Am Marjorie Radiol 2015): In patients aged 35 years and older with an incidental thyroid nodule equal to or greater than 1.[address], MRI or extrathyroidal US, further evaluation with dedicated thyroid US is recommended for patients with normal life expectancy and without comorbidities. For smaller nodules without suspicious features, no further evaluation or follow up is recommended. PROCEDURE INFORMATION: Exam: CT Abdomen And Pelvis With Contrast Exam date and time: 07/01/2021 4:18 PM Age: 65 years old Clinical indication: Abdominal tenderness and other: Cramping; Shortness of breath; Prior surgery; Surgery type: Stents, d&c today; Additional info: SOB, syncope, abd pain, post op. Hypotensive, cramping, AMS TECHNIQUE: Imaging protocol: Computed tomography of the abdomen and pelvis with contrast. Radiation optimization: All CT scans at this facility use at least one of these dose optimization techniques: automated exposure control; mA and/or kV adjustment per patient size (includes targeted exams where dose is matched to clinical indication); or iterative reconstruction. Contrast material: VISI 320; Contrast volume: 95 ml; Contrast route: INTRAVENOUS (IV); COMPARISON: CR XR chest 1V portable [id number] 08/09/2020 7:54 PM RADIATION DOSE METRICS: Total DLP (mGy-cm): 1101.19 FINDINGS: Heart: Lipomatosis of the right atrial and ventricular wall of the heart incidentally noted. Liver: Normal. No mass. Gallbladder and bile ducts: Normal. No calcified stones. No ductal dilation. Pancreas: Normal. No ductal dilation. Spleen: Small low-density area in the periphery of the spleen measures approximately 1.2 cm may represent a peripheral splenic cyst versus small laceration. (AAST Grade1). Adrenal glands: Normal. No mass. Kidneys and ureters: 3.4 cm largest cyst noted in kidneys that have multiple simple renal cysts. No further evaluation required. Stomach and bowel: Unremarkable. No obstruction. No mucosal thickening. Appendix: No evidence of appendicitis. Intraperitoneal space: Moderate amount of free fluid is noted within the abdomen and pelvis with increased density seen within the fluid within the pelvis and felt to represent a hemoperitoneum. Vasculature: Moderate atherosclerotic disease is evident. Lymph nodes: Unremarkable. No enlarged lymph nodes. Urinary bladder: Unremarkable as visualized. Reproductive: Irregular hyperdensity seen within the posterior superior aspect of the uterus which extends in a tubular fashion toward the right adnexal area. Findings may represent active hemorrhage. Bones/joints: Facet joint degenerative changes are present. Soft tissues: Unremarkable. CT/CT angio chest w abd pel w con IMPRESSION: 1. Moderate amount of free fluid is noted within the abdomen and pelvis with increased density seen within the fluid within the pelvis and felt to represent a hemoperitoneum. 2. Irregular hyperdensity seen within the posterior superior aspect of the uterus which extends in a tubular fashion toward the right adnexal area. Findings may represent active hemorrhage. 3. Small low-density area in the periphery of the spleen measures approximately 1.2 cm may represent a peripheral splenic cyst versus small laceration. (AAST Grade1). 4. Lipomatosis of the right atrial and ventricular wall of the heart incidentally noted. COMMENTS: Consistent with the [employer]'s Incidental Findings Committee white paper (J Am Marjorie Radiol 2018): Any incidental renal lesion less than 1 cm or classified as too small to characterize, or any incidental cystic renal lesion characterized as simple-appearing, is likely benign. No follow-up imaging is recommended for these lesions per consensus recommendations based on imaging criteria. Radiation Dose CTDIVOL = (mGy): DLP = 1101.19~1101.19 (mGy-cm)
--- NOTE | 2021-07-01 16:18 | CTR_ITS ---
PROCEDURE INFORMATION: Exam: CT Head Without Contrast Exam date and time: 07/01/2021 4:18 PM Age: 65 years old Clinical indication: Altered mental status/memory loss and syncope and collapse; Additional info: Syncope, hypotensive, AMS. D&c today TECHNIQUE: Imaging protocol: Computed tomography of the head without contrast. Sagittal and coronal reformatted images were created and reviewed. Radiation optimization: All CT scans at this facility use at least one of these dose optimization techniques: automated exposure control; mA and/or kV adjustment per patient size (includes targeted exams where dose is matched to clinical indication); or iterative reconstruction. COMPARISON: No relevant prior studies available. RADIATION DOSE METRICS: Total DLP (mGy-cm): 778.16 FINDINGS: Brain: No acute intracranial hemorrhage. No acute infarct. No intra-axial or extra-axial masses. Rodriguez-white matter differentiation is preserved. No cerebral edema. No extra-axial fluid collections. No midline shift. Mild cerebral volume loss. No evidence for Chiari 1 malformation. Cerebral ventricles: No hydrocephalus. Paranasal sinuses: Mild mucoperiosteal thickening in the the right and left sphenoid sinuses. Other visualized paranasal sinuses are clear. Mastoid air cells: Mastoid air cells are clear bilaterally. Orbital cavity: Globes and lenses, extraocular muscles, and optic nerves are intact bilaterally. No acute intraorbital abnormality. Vasculature: Atherosclerotic changes in the visualized arteries. Bones/joints: Mild right nasal septal deviation. Soft tissues: No acute abnormality of the extracranial soft tissues. Nasal cavity: Ashlie bullosa of the left middle turbinate. CT/CT head wo con* [id number] IMPRESSION: 1. No acute abnormality of the brain. 2. Mild mucoperiosteal thickening in the the right and left sphenoid sinuses. Radiation Dose CTDIVOL = (mGy): DLP = 778.16 (mGy-cm)
--- NOTE | 2021-07-01 16:21 | ECG_ITS ---
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 Measurements Intervals [place] Rate: 66 P: 84 [place]: 172 QRS: 74 QRSD: 68 T: 39 QT: 386 QTc: 405 Interpretive Statements SINUS RHYTHM WITH SINUS ARRHYTHMIA MODERATE T-WAVE ABNORMALITY, CONSIDER ANTERIOR ISCHEMIA [-0.1+ mV T-WAVE IN V3/V4] Compared to ECG 04/03/2021 12:07:08 T-wave abnormality now present Possible ischemia now present Myocardial infarct finding no longer present Electronically Signed On 07-03-2021 9:00:26 CDT by Isabell Gibbs M.D. [id number] f
[2021-07-01] MEDS: sodium chloride 0.9% 1,000 ML 999 ML IV (16:32)
[2021-07-01 16:34] LABS: Basophils % 0.4 %; Eosinophils % 0.1 %; Hematocrit 32.4 % (37.0-47.0); Hemoglobin 10.1 g/dL (11.5-15.3); Lymphocytes # 2.3 10^3/uL (0.8-4.8); Lymphocytes % 21.6 %; Mean Corpuscular HGB Conc 31.2 g/dL (30.0-36.0); Mean Corpuscular Hemoglobin 31.2 pg (28.0-34.0); Mean Platelet Volume 11.4 fL (7.4-10.4); Monocytes # 0.2 10^3/uL (0.2-0.9); Neutrophils # 8.03 10^3/uL (1.8-7.7); Neutrophils % 75.3 %; Nucleated Red Blood Cells % 0 %; Platelet Count 247 10^3/cmm (130-400); Red Blood Count 3.24 10^6/uL (4.1-5.3); White Blood Count 10.7 10^3/uL (4.0-10.0)
[2021-07-01 16:59] LABS: Alanine Aminotransferase 90 U/L (0-33); Albumin Level 3.1 g/dL (3.5-5.2); Alkaline Phosphatase 113 IU/L (35-105); Anion Gap 22.2 (5-19); Aspartate Amino Transferase 105 U/L (0-32); Blood Urea Nitrogen 14 mg/dL (8-23); Calcium 8.3 mg/dL (8.5-10.5); Carbon Dioxide 16 mmol/L (22-29); Chloride 101 mmol/L (98-107); Globulin 2.4 g/dL (1.3-4.6); Glomerular Filtration Rate 45.1 mL/min (90-130); Glucose 320 mg/dL (65-115); Magnesium 1.8 mg/dL (1.7-2.3); Osmolality Calculated 293 mOsm/kg (285-295); Potassium 4.2 mmol/L (3.5-5.1); Sodium 135 mmol/L (136-145); Thyroid Stimulating Hormone 3.54 uIU/mL (0.27-4.20); Total Bilirubin 0.2 mg/dL (0.15-1.2); Total Protein 5.5 g/dL (6.6-8.7)
[2021-07-01] MEDS: iodixanol 320 mg/mL 100mL Btl IV (18:04)
[2021-07-01] MEDS: lactated ringers 1,000 ML 999 ML IV (18:21)
[2021-07-01] MEDS: morphine 4 mg/mL SDV 1 mL IVP (18:29)
[2021-07-01] MEDS: ondansetron 2 mg/ML SDV 2 mL 4 MG IVP (18:29)
[2021-07-01 19:30] LABS: Troponin 5 2HR 15.92 ng/L (0-10)
--- NOTE | 2021-07-01 19:37 | P.CONIM_ITS ---
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 Primary Care Provider: Lizzette Tucker MD History of Present Illness History of Present Illness Isadora Lamb is a 65 year old female who underwent hysteroscopy, dilation and curettage with myosure earlier today. She initially had some bleeding postop which stopped after pitocin was given. She had packing placed and removed prior to discharge. She reports minimal bleeding when the packing was removed. She arrived home and began having abdominal pain and had three syncopal episodes. She arrived in the ER and had a CT scan which showed some free fluid and what looked like active bleeding in the adnexae. I have consented her for an exploratory laparotomy with possible hysterectomy and or removal of her fallopian tubes and ovaries. Review of Systems General: Reports: 10 or more systems reviewed and unremarkable except in HPI and below Meds/Allergies Home Medications and Allergies Home Medications Medication Instructions Recorded Confirmed Last Taken Type amlodipine 10 mg tablet 10 mg PO DAILY 05/27/20 07/01/21 06/30/21 History isosorbide mononitrate 30 mg 30 mg PO DAILY 05/27/20 07/01/21 06/30/21 History tablet,extended release 24 hr lorazepam 1 mg tablet 1 mg PO BID PRN 05/27/20 07/01/21 06/25/21 History polyethylene glycol 3350 8.5 gram 8.5 gm PO DAILY 05/27/20 07/01/21 06/10/21 History oral powder packet methimazole 10 mg tablet 5 mg PO Q2D tab 09/12/20 07/01/21 06/30/21 History lisinopril 20 1 tab PO DAILY 11/01/20 07/01/21 06/30/21 History mg-hydrochlorothiazide 12.5 mg tablet atorvastatin 80 mg PO BEDTIME 01/31/21 07/01/21 06/30/21 History morphine 15 mg PO Q12H 02/03/21 07/01/21 07/01/21 08:00 History nitroglycerin 0.4 mg SUBLINGUAL Q5M PRN 02/03/21 07/01/21 05/14/21 History calcium carbonate 600 mg(1,500 1 tab PO DAILY 03/19/21 07/01/21 06/30/21 History mg)-vitamin D3 800 unit chewable tablet linaclotide 290 mcg capsule 290 mcg PO DAILY MDD SEE PHARMACY 03/19/21 07/01/21 06/28/21 History COMMENT lidocaine 5 % topical patch 1 patch TOPICAL DAILY PRN 05/19/21 07/01/21 06/29/21 History pregabalin 100 mg capsule 100 mg PO BID cap 05/19/21 07/01/21 06/30/21 History omeprazole 40 mg capsule,delayed 40 mg PO DAILY #30 cap 05/27/21 07/01/21 06/30/21 Rx release aspirin 81 mg tablet,delayed 81 mg PO DAILY 06/26/21 07/01/21 06/29/21 History release morphine 15 mg PO BID PRN 06/27/21 07/01/21 07/01/21 History ondansetron HCl 8 mg PO Q8H PRN 06/27/21 07/01/21 05/12/21 History Allergies Allergy/AdvReac Type Severity Reaction Status Date / Time No Known Allergies Allergy Verified 07/01/21 16:29 PFSH Acute PFSH: Medical History Claudication of both lower extremities Hx of herpes zoster Pain management contract signed Peripheral arterial disease Family History Denies family history of Diabetes CAD (coronary artery disease) Clotting disorder Dementia Hyperlipidemia Chronic kidney disease (CKD) Anesthesia complication Bleeding disorder Family history of premature coronary artery disease Lung disease Cancer Hypertension Vitals/I&O/Wt Last Vital Signs Pulse 66 07/01/21 18:58 Resp 20 H 07/01/21 18:58 BP 97/60 07/01/21 18:58 Pulse Ox 100 07/01/21 18:58 Weight last 48 hrs Weight 132 lb Physical Exam Narrative: EXAM NARRATIVE: The patient is very pale. She is lying in bed. She is writhing in pain. She alert and awake. Const: COMMON NORMALS: average body habitus, patient oriented x3, alert and well nourished GENERAL APPEARANCE: cooperative, in distress and appears older than stated age ORIENTATION/CONSCIOUSNESS: Yes awake, Yes oriented to person, Yes oriented to place and Yes oriented to time Resp: COMMON NORMALS: normal respiratory effort EFFORT & INSPECTION: Yes able to speak in complete sentences GI: PALPATION: Yes Tenderness to palpation present (GI) and Yes Guarding due to palpation present (GI) Extremity: COMMON NORMALS: no clubbing, cyanosis or edema and no calf tenderness Neuro: COMMON NORMALS: patient oriented x3 SENSORIUM/ORIENTATION: Yes alert, Yes oriented to person, Yes oriented to place and Yes oriented to time A&P Assessment and plan (1) Post-operative haemorrhage: plan exploratory laparotomy. Risks, benefits and alternatives to procedure were discussed with the patient including but not limited to: pain, bleeding, infection, development of a blood clot or pulmonary embolism, damage to bowel, bladder, ureters, blood vessels, formation of scar tissue or even . . These are the most common complications, but there may be other, unforseen complications that could arise during surgery. The patient accepts these risks and desires to proceed. 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
[2021-07-01 20:04] LABS: Troponin(5th) Baseline 15 ng/L (0-10)
[2021-07-01] MEDS: HYDROmorphone 1 mg/mL INJ 1 mL IVP (20:07)
[2021-07-01 20:10] LABS: Hematocrit 24.4 % (37.0-47.0); Hemoglobin 7.4 g/dL (11.5-15.3)
--- NOTE | 2021-07-01 20:16 | ANES.PAUD2 ---
Pre-Anesthetic Update Pre-Anesthetic Assessment: Date of Surgery/Procedure: 07/01/21 Preop Diagnosis: postoperative hemorrhage Proposed Procedure: Operation Date: 07/01/21 21:45 Proposed Procedures p Exploratory Laparotomy(Not Applicable) - Brandy Augustine MD Any changes to Pre-Anesthetic Assessment?: Yes Changes from Pre-Anesthetic Assessment: Acute post-op bleed, patient received 1 unit prbcs. Still NPO according to patient Labs Last 48hrs: Laboratory Results - last 48 hr 07/01/21 07/01/21 07/01/21 16:15 16:15 16:15 WBC 10.7 H RBC 3.24 L Hgb 10.1 L Hct 32.4 L MCV 100.0 H MCH 31.2 MCHC 31.2 RDW 13.0 Plt Count 247 MPV 11.4 H Neut % (Auto) 75.3 Lymph % (Auto) 21.6 [place] % (Auto) 2.0 Eos % (Auto) 0.1 Baso % (Auto) 0.4 Neut # (Auto) 8.03 H Lymph # (Auto) 2.3 [place] # (Auto) 0.2 Eos # (Auto) 0.0 Baso # (Auto) 0.0 Nucleated RBC % (a uto) 0 Nucleated RBCs # 0.0 Sodium 135 L Potassium 4.2 Chloride 101 Carbon Dioxide 16 L Anion Gap 22.2 H BUN 14 Creatinine 1.2 H GFR Calculation 45.1 L Glucose 320 H Calculated Osmolal ity 293 Calcium 8.3 L Magnesium 1.8 Total Bilirubin 0.2 AST 105 H ALT 90 H Alkaline Phosphata se 113 H Troponin T Baselin e 15 H Troponin T [address] [place] Total Protein 5.5 L Albumin 3.1 L Globulin 2.4 TSH 3.54 07/01/21 07/01/21 18:37 19:42 WBC RBC Hgb 7.4 L Hct 24.4 L MCV MCH MCHC RDW Plt Count MPV Neut % (Auto) Lymph % (Auto) [place] % (Auto) Eos % (Auto) Baso % (Auto) Neut # (Auto) Lymph # (Auto) [place] # (Auto) Eos # (Auto) Baso # (Auto) Nucleated RBC % (a uto) Nucleated RBCs # Sodium Potassium Chloride Carbon Dioxide Anion Gap BUN Creatinine GFR Calculation Glucose Calculated Osmolal ity Calcium Magnesium Total Bilirubin AST ALT Alkaline Phosphata se Troponin T Baselin e Troponin T [address] [place] 15.92 H Total Protein Albumin Globulin TSH Vitals: Pulse Rate 66 07/01/21 18:58 Respiratory Rate 16 07/01/21 20:07 Respiratory Effort Non-Labored 07/01/21 18:29 Respiratory Depth Normal 07/01/21 20:07 Respiratory Patter n 07/01/21 16:17 Blood Pressure 97/60 07/01/21 18:58 Blood Pressure Merari n 72 07/01/21 18:58 Blood Pressure Pos ition Semi Fowlers 07/01/21 18:58 Pulse Oximetry 100 07/01/21 20:07 Oxygen Delivery Me thod 07/01/21 18:58 Sepsis Recent Feve r Within 48 Hours No 07/01/21 16:17 Sepsis New/Unexpla ined Change in Men oumar Status No 07/01/21 16:17 Exam: Pre-Anes Outpt Exam: alert, oriented x 3, clear to auscultation bilaterally and regular rate & rhythm Cardiac Studies: No Data to Display
[2021-07-01 20:37] LABS: Lactate (Lactic Acid level) 5.4 mmol/L (0.5-2.2)
[2021-07-01 21:44] LABS: Hematocrit 33.2 % (37.0-47.0); Hemoglobin 10.7 g/dL (11.5-15.3)
--- NOTE | 2021-07-01 21:54 | SUR.PHASEI ---
1941 CRITICAL LAB LACTIC ACID 5.[address] KIMBROUGH IN OR ROOM 4.
--- NOTE | 2021-07-01 22:36 | P.OP_ITS ---
Operative Report Date of procedure: July 01, 2021 Pre-op Diagnosis: postoperative hemorrhage Post-op diagnosis: same Post-op Findings: 1100 ml of blood in the abdomen pelvis. 6 mm hole in the left side of the cervix, actively bleeding. Good hemostasis post surgery. Procedure Done: total abdominal hysterectomy with bilateral salpingoophorectomy Specimens removed/disposition: uterus, bilateral tubes and ovaries to pathology Anesthesia: General Estimated blood loss (mL): 1,100 IV fluids (mL): 1,000 Urine output (mL): 250 Complications: none Findings: normal appearing uterus, tubes and ovaries with a 6 mm hole in the left side of the cervix. Condition: stable Disposition: floor Brief History: The patient had surgery this morning. She had some postop bleeding which seemed to be controlled prior to leaving the OR. She was discharged home and had increased pain and had three syncopal episodes. The was brought to the ER by ambulance. A CT scan showed likely blood in the pelvis with likely actively bleeding. She was given two units of blood and taken immediately to surgery. Procedure: The patient was taken to the operating room where general anesthesia was administered and found to be adequate. She was prepped and draped in the normal sterile fashion in the dorsal supine position. A Pfannenstiel skin incision was made and carried down to the underlying layer of fascia. The fascia was nicked in the midline and extended laterally with the Andersen scissors. The fascia was then tented up and the rectus muscles dissected off sharply. The rectus muscles were in the midline and the abdomen entered bluntly with the digit. There was blood immediately and the peritoneum had blood in it as well. This peritoneal incision was extended superiorly and inferiorly with good visualization of the bladder. The O'Lj-O'Schroeder retractor was placed and the bowel packed away. There was adhesions of the bowel to the uterus. These were taken down sharply with the metzenbaum scissors and bluntly with the digit. The round ligament on the left was ruptured. It was suture ligated. The right was normal. It was also suture ligated. A window was made medial to the infundibulopelvic ligament and inferior to the fallopian tube and ovary. The infundibulopelvic ligament was clamped cut and suture-ligated bilaterally. The uterine arteries and cardinal ligaments were then clamped cut and suture- ligated down to the angle of the vagina. The vaginal cuff was clamped and cut and the specimen was removed. The vaginal cuff was closed with 0 Vicryl incorporating the uterosacral ligaments into the lateral aspects of the vaginal cuff. The left pelvic sidewall had ruptured open prior to surgery. There was good hemostasis. Surgicell was placed over the indurated areas and the peritoneum closed over it. There was excellent hemostasis. The pelvis was irrigated. The O'Lj-O'Schroeder retractor as well as the packing was removed. The peritoneum was closed with 2-0 Monocryl in a running fashion. The fascia was closed with 0 Vicryl in a running fashion with 2 separate sutures overlapping in the midline. The skin was closed with absorbable eliza. The patient tolerated the procedure well. Sponge lap and needle counts were correct x2. She was taken to the recovery room in stable condition.
[2021-07-01] MEDS: HYDROmorphone 1 mg/mL INJ 1 mL 0.5 MG IVP (22:44)
[2021-07-01] MEDS: ketorolac 30 mg/mL INJ IVP (23:55)
[2021-07-01] MEDS: dextrose 5%-lactated ringers 1,000 ML 125 ML IV (23:58)
[2021-07-02] VITALS (9 sets, daily range): BP systolic 80–119; BP diastolic 45–78; PULSE 58–77; RESP 15–18; TEMP 36.6; O2SAT 92–98; BMI 21.3
[2021-07-02] MEDS: HYDROmorphone 1 mg/mL INJ 1 mL 1.5 MG IVP ×3 (00:39→16:56)
[2021-07-02] MEDS: simethicone 80 mg Chew PO (05:43)
--- NOTE | 2021-07-02 06:06 | P.PN_ITS ---
Subjective Subjective: Interval history: The patient had a good night. She was able to sleep. She had moderate pain control. She reports gas pain and mild incisional pain. Medications: Reviewed: Yes Vitals/I&O/Wt Last Vital Signs Temp 97.9 F 07/01/21 23:05 Pulse 60 07/01/21 23:05 Resp 16 07/02/21 00:39 BP 98/66 07/01/21 23:05 Pulse Ox 92 07/02/21 00:39 07/01/21 07/01/21 07/02/21 14:59 22:59 06:59 Intake Total 760 / 760 Output Total 1600 / 1600 275 / 1875 Balance -840 / -840 -275 / -1115 Weight last 48 hrs Weight 131 lb 15.993 oz Weight 132 lb Physical Exam Narrative: EXAM NARRATIVE: The patient is on a clear liquid diet. Pain is controlled. She has not been up yet today Const: COMMON NORMALS: no acute distress, average body habitus, patient oriented x3, no limitations, healthy appearing, alert and well nourished GENERAL APPEARANCE: cooperative, comfortable, well kempt and well developed ORIENTATION/CONSCIOUSNESS: Yes awake, Yes oriented to person, Yes oriented to place and Yes oriented to time Resp: COMMON NORMALS: normal respiratory effort EFFORT & INSPECTION: Yes able to speak in complete sentences GI: COMMON NORMALS: Soft to palpation and non-tender INSPECTION: Yes abdominal wall ecchymosis (R>L) AUSCULTATION: Yes Hypoactive bowel sounds present PALPATION: Yes Soft to palpation Extremity: COMMON NORMALS: no clubbing, cyanosis or edema and no calf tender ness Neuro: COMMON NORMALS: patient oriented x3 SENSORIUM/ORIENTATION: Yes alert, Yes oriented to person, Yes oriented to place and Yes oriented to time Psych: APPEARANCE: Yes well kempt Skin: WOUNDS: Yes surgical site (clean/dry/covered) Urinary Catheter Management^: Khan: Cath Placed During This Visit: yes Urinary Catheter Date of Insertion: 07/01/21 Urinary Catheter Time of Insertion: 20:50 Data : 07/01/21 21:37 07/01/21 16:15 A&P Assessment and plan (1) Post-operative haemorrhage: doing well this morning. Having some gas pain. Plan to be up and ambulating today cbc still pending from this am. patient vitals are stable. pain is controlled on medication. advance diet as she has flatus and better bowel sounds. Status: Acute Attestations Medical Necessity Statement*: The patient major abdominal surgery. She will need to be here for 2 midnights at least Coding Level of Care Code Acute Home Assessment Nurse for Chg Fwd Diagnoses Post-operative haemorrhage
[2021-07-02] MEDS: lactated ringers 1,000 ML 999 ML IV (07:35)
[2021-07-02 08:59] LABS: Hematocrit 31.3 % (37.0-47.0); Hemoglobin 9.5 g/dL (11.5-15.3); Mean Corpuscular HGB Conc 30.4 g/dL (30.0-36.0); Mean Corpuscular Hemoglobin 29.6 pg (28.0-34.0); Mean Corpuscular Volume 97.5 fl (81-99); Mean Platelet Volume 11.2 fL (7.4-10.4); Platelet Count 136 10^3/cmm (130-400); Red Blood Count 3.21 10^6/uL (4.1-5.3); Red Cell Distribution Width 17.3 % (12.1-15.1); White Blood Count 18.4 10^3/uL (4.0-10.0)
--- NOTE | 2021-07-02 09:24 | PC.CHAP ---
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 [] Patient/Family/Request visit [] Outpatient visit [] Follow-up visit [] Physician referral [] Code/Alert [x] Routine visit [] Staff referral [] Actively dying [] Patient sleeping [] Family support [] [] Out of room [] Palliative care [] [] Receiving care in room [] Pre-surgical visit [] Trauma [] Long length of stay [] ICU visit [] Other: Relational/Emotional Strength [] Patient feels connected with others/family/visitors/staff [] Distress [] Loneliness/isolation [] Abandonment Spirituality of Patient [x] Person of Ivy [x] Attends Faith of their Ivy [x] Believes in Prayer [] Reads Bible or Roman Catholic materials [] There are Spiritual issues to be addressed Kier Hand Interventions [x] Prayer [x] Active listening [x] Non-anxious presence [x] Spiritual/emotional support [] Crisis/trauma care [] Spiritual counseling [] Bereavement support [] Provided bereavement packet [] Provided Bible/devotional materials [] Provided toy/stuffed animal, coloring book to patient or family member [] Provided Communion [] Anointing/[place] [] Salvation [x] Completed spiritual assessment [] Other: Impact on Illness or Injury [] Angry [] Fearful [] Anxious [] Often cries [] Exhaustion [] Unable to work [] Unable to attend restorationism [] Unable to walk/stand [] Unable to read [] Unable to drive [] Unable to eat/drink [] Unable to sleep [] Unable to be with family [] Patient intubated [] Other: Summary surgery last night.. rested well... will remain for the entire day today... Time spent with patient 15 min
[2021-07-02] MEDS: lactated ringers 1,000 ML 125 ML IV ×2 (10:55→19:20)
[2021-07-02] MEDS: HYDROcodone-acetaminophen 5-325 mg Tablet PO ×3 (11:01→21:02)
[2021-07-02] MEDS: docusate sodium 100 mg Capsule PO (11:01)
[2021-07-02] MEDS: pantoprazole DR 40 mg Tablet PO (11:03)
--- NOTE | 2021-07-02 19:49 | PC.NURSE ---
During assessment pt noted to have bruising on abdomen extending to pt's umbilicus around to ride side above hip bone, down to groin, across above pubic bone, and over to left side of incision. Bruising marked with marker in presence of Eleuterio Jeronimo RN.
[2021-07-02] MEDS: atorvastatin 40 mg Tablet 80 MG PO (21:03)
[2021-07-03] VITALS (24 sets, daily range): BP systolic 102–148; BP diastolic 45–82; PULSE 66–96; RESP 16–18; TEMP 36.6–37.2; O2SAT 94–100
--- NOTE | 2021-07-03 01:08 | PC.NURSE ---
This nurse answered pt's call light. Pt stated she was having shortness of breath and chest pain. This nurse placed pt on pulse ox and pt's oxygen saturation was 91%, heart rate 88, blood pressure 148/72. Pt was placed on 2L NC O2 and lung sounds were assessed and expiratory wheezes noted. Pt repositioned to left tilt and oxygen increased to 3L NC and oxygen sat 94%. Pt stated breathing was easier and chest pain was easing up. Pt boosted up in bed and pulse oxy positioned and 95% on 3L NC and heart rate 98. Pt stated she was having abdominal pain and this nurse educated pt on not getting pain medication due to shortness of breath. Pt verbalized understanding.
[2021-07-03] MEDS: alum-mag-hydroxide-sime 30 mL UDC PO (03:45)
[2021-07-03] MEDS: lactated ringers 1,000 ML 125 ML IV (03:45)
[2021-07-03] MEDS: HYDROcodone-acetaminophen 5-325 mg Tablet PO (04:02)
[2021-07-03] MEDS: simethicone 80 mg Chew PO (04:11)
[2021-07-03] MEDS: HYDROmorphone 1 mg/mL INJ 1 mL 1.5 MG IVP (04:12)
[2021-07-03] MEDS: bisacodyl 10 mg Supp PR ×2 (09:07→17:30)
[2021-07-03] MEDS: docusate sodium 100 mg Capsule PO ×2 (09:07→17:29)
[2021-07-03] MEDS: pregabalin 100 mg Capsule PO (09:07)
[2021-07-03] MEDS: polyethylene glycol 3350 Pkt 17 gm PO (09:07)
[2021-07-03] MEDS: pantoprazole DR 40 mg Tablet PO (09:07)
[2021-07-03] MEDS: isosorbide mononitrate ER 30 mg Tablet PO (09:08)
[2021-07-03] MEDS: amlodipine 10 mg Tablet PO (09:08)
[2021-07-03] MEDS: lisinopril 20 mg Tablet PO (09:08)
[2021-07-03] MEDS: hydroCHLOROthiazide 25 mg Tablet 12.5 MG PO (09:08)
[2021-07-03] MEDS: oxyCODONE-APAP 5-325 mg Tablet 2 TAB PO (09:09)
[2021-07-03 13:36] LABS: Basophils % 0.2 %; Eosinophils % 0.1 %; Hematocrit 22.1 % (37.0-47.0); Hemoglobin 7.2 g/dL (11.5-15.3); Lymphocytes # 2.1 10^3/uL (0.8-4.8); Lymphocytes % 16.3 %; Mean Corpuscular HGB Conc 32.6 g/dL (30.0-36.0); Mean Corpuscular Hemoglobin 29.4 pg (28.0-34.0); Mean Corpuscular Volume 90.2 fl (81-99); Mean Platelet Volume 11.1 fL (7.4-10.4); Monocytes # 0.9 10^3/uL (0.2-0.9); Monocytes % 6.9 %; Neutrophils # 9.86 10^3/uL (1.8-7.7); Neutrophils % 76.1 %; Nucleated Red Blood Cells % 0 %; Platelet Count 113 10^3/cmm (130-400); Red Blood Count 2.45 10^6/uL (4.1-5.3); Red Cell Distribution Width 16.8 % (12.1-15.1)
--- NOTE | 2021-07-03 14:42 | CT_ITS ---
WS: [id number] CT ABDOMEN PELVIS TECHNIQUE: Noncontrast CT of the abdomen and pelvis with coronal and sagittal reformatted images. CLINICAL INFORMATION: r/o abd bleed, drop in hgb COMPARISON: CT July 01, 2021 DLP: 1210.[address] scans at [facility] use at least one of these dose optimization techniques: automated e xposure control; mA and/or kV adjustment per patient size (includes targeted exams where dose is matc hed to clinical indication); or iterative reconstruction. FINDINGS: Small bilateral pleural effusions with compressive atelectasis in the lung bases. Diffuse body wall a nasarca. Recent postoperative changes hysterectomy. Expected postoperative changes involving the subc utaneous soft tissues with a few pockets of normal postoperative air. A few small locules of air with in the abdomen and pelvis. Small amount of free fluid in the pelvis. No evidence of large or recurren t pelvic hematoma. Previously described pelvic hematoma has been evacuated. No evidence of acute appe aring or recent hemorrhage. Slightly cirrhotic contour to the right hepatic lobe unchanged. Noncontrast liver otherwise normal. N ormal GE junction. Normal noncontrast spleen. Adrenal glands are normal. Residual contrast within the renal parenchyma bilaterally. Multiple bilateral renal cysts. Right renal atrophy. Fatty atrophy of the pancreas. Normal caliber abdominal aorta. Aortic calcification. A few air distended loops of small bowel in the midabdomen and proximal transverse colon likely due t o postoperative ileus. No evidence of high-grade obstruction. Descending colon decompressed. CT/CT abdomen pelvis wo con [id number] IMPRESSION: 1. Small bilateral pleural effusions with bibasilar atelectasis new from previ ous. 2. Interval postoperative changes hysterectomy with pelvic hematoma evacuation . No evidence of new or recurrent hemorrhage. Only a small amount of free fluid in the pelvis. 3. A few scattered locules of air consistent with normal postoperative change. 4. Diffuse body wall anasarca. 5. A few air distended loops of small bowel in the midabdomen and proximal tra nsverse colon likely due to postoperative ileus. No evidence of high-grade obst ruction. .
--- NOTE | 2021-07-03 15:09 | PM.PN ---
Vitals/I&O/Wt Last Vital Signs Temp 98.6 F 07/04/21 15:12 Pulse 65 07/04/21 15:12 Resp 16 07/04/21 15:12 BP 125/59 07/04/21 15:12 Pulse Ox 96 07/04/21 15:12 Physical Exam Narrative: EXAM NARRATIVE: The patient has still not passed gas. She is having pain. she has some bruising on her abdomen. She is on full liquid diet. She is ambulating. Her pain is moderately controlled. Const: COMMON NORMALS: no acute distress, average body habitus, patient oriented x3, alert and well nourished GENERAL APPEARANCE: cooperative, comfortable, well kempt and well developed ORIENTATION/CONSCIOUSNESS: Yes awake, Yes oriented to person, Yes oriented to place and Yes oriented to time Resp: COMMON NORMALS: normal respiratory effort EFFORT & INSPECTION: Yes able to speak in complete sentences GI: COMMON NORMALS: Soft to palpation INSPECTION: Yes incision (clean/dry/intact) PALPATION: Yes Soft to palpation and Yes Tenderness to palpation present (GI) (appropriate tenderness after surgery) Extremity: COMMON NORMALS: no calf tenderness Neuro: COMMON NORMALS: patient oriented x3 SENSORIUM/ORIENTATION: Yes alert, Yes oriented to person, Yes oriented to place and Yes oriented to time Psych: APPEARANCE: Yes well kempt Urinary Catheter Management^: Khan: Cath Placed During This Visit: yes, but has since been removed by the nurse Reason for Continuing Indwelling Catheter: Decision to DC Catheter Urinary Catheter Date of Insertion: 07/01/21 Urinary Catheter Time of Insertion: 20:50 Date Urinary Catheter Removed: 07/03/21 Time Urinary Catheter Discontinued: 09:45 Data : 07/04/21 08:13 07/03/21 13:10 A&P Assessment and plan (1) Postoperative state: Status: Acute Attestations Medical Necessity Statement*: The patient needs to stay one more post op day Coding Level of Care Code Acute Line Supervisor for Issa Ji Diagnoses Postoperative state Z98.890
[2021-07-03] MEDS: sodium chloride 0.9% (100 ml) 100 ML 240 ML (15:45)
[2021-07-03 15:51] LABS: Alanine Aminotransferase 22 U/L (0-33); Albumin Level 2.6 g/dL (3.5-5.2); Alkaline Phosphatase 73 IU/L (35-105); Anion Gap 13.1 (5-19); Aspartate Amino Transferase 55 U/L (0-32); Blood Urea Nitrogen 17 mg/dL (8-23); Calcium 7.3 mg/dL (8.5-10.5); Carbon Dioxide 20 mmol/L (22-29); Chloride 105 mmol/L (98-107); Creatinine Clr Calc Pharmacy 52.7085; Glomerular Filtration Rate 55.6 mL/min (90-130); Glucose 122 mg/dL (65-115); Osmolality Calculated 281 mOsm/kg (285-295); Potassium 4.1 mmol/L (3.5-5.1); Sodium 134 mmol/L (136-145); Total Bilirubin 0.3 mg/dL (0.15-1.2); Total Protein 4.6 g/dL (6.6-8.7)
[2021-07-03] MEDS: oxyCODONE-APAP 5-325 mg Tablet 1 TAB PO ×2 (16:12→20:26)
[2021-07-03] MEDS: FUROsemide 10 mg/mL SDV 4mL 40 MG IVP (17:29)
[2021-07-03] MEDS: atorvastatin 40 mg Tablet 80 MG PO (20:26)
[2021-07-03] MEDS: temazepam 15 mg Capsule PO (21:07)
--- NOTE | 2021-07-03 22:29 | PC.NURSE ---
bruising noted to pt's abdomen. Small amount of bruising extended outside of silver made with 0700 nurse. Pt states bruising is uncomfortable but not painful. Will continue to monitor.
[2021-07-03 23:06] LABS: Estmated Average Glucose 97
[2021-07-04 03:00] VITALS: RESP 19
[2021-07-04] MEDS: oxyCODONE-APAP 5-325 mg Tablet 2 TAB PO ×2 (03:00→10:37)
--- NOTE | 2021-07-04 08:08 | PC.NURSE ---
Patient reported passing gas several times since 714 when I was in her room.
[2021-07-04 08:19] LABS: Basophils # 0.1 10^3/uL (0.0-0.1); Basophils % 0.4 %; Eosinophils % 0.3 %; Hematocrit 33.8 % (37.0-47.0); Lymphocytes # 2.5 10^3/uL (0.8-4.8); Lymphocytes % 21.8 %; Mean Corpuscular HGB Conc 33.4 g/dL (30.0-36.0); Mean Corpuscular Hemoglobin 28.4 pg (28.0-34.0); Mean Corpuscular Volume 84.9 fl (81-99); Mean Platelet Volume 10.8 fL (7.4-10.4); Monocytes % 9.1 %; Neutrophils # 7.82 10^3/uL (1.8-7.7); Neutrophils % 68.1 %; Nucleated Red Blood Cells % 0 %; Platelet Count 120 10^3/cmm (130-400); Red Blood Count 3.98 10^6/uL (4.1-5.3); Red Cell Distribution Width 16.4 % (12.1-15.1); White Blood Count 11.5 10^3/uL (4.0-10.0)
[2021-07-04 08:40] LABS: Hemoglobin 11.3 g/dL (11.5-15.3)
--- NOTE | 2021-07-04 10:07 | PM.PN ---
Vitals/I&O/Wt Last Vital Signs Temp 97.9 F 07/03/21 19:37 Pulse 86 07/03/21 21:32 Resp 19 H 07/04/21 03:00 BP 115/68 07/03/21 21:32 Pulse Ox 94 07/03/21 18:35 07/03/21 07/04/21 07/04/21 22:59 06:59 14:59 Intake Total 450 / 1168.75 Output Total 3500 / 3800 1200 / 5000 Balance -3050 / -2631.25 -1200 / -3831.25 Physical Exam Narrative: EXAM NARRATIVE: The patient is doing well this morning. She is up and ambulating. She just passed flatus. She feels well and is anxious to go home. She had a drop in hemoglobin yesterday and with the bruising on her abdomen, I ordered a CT scan and two units more of blood. The CT scan was negative with the exception of some fluid in her abdominal wall and small pleural effusions. She received a 40 mg dose of lasix and had very good diuresis. She so far is tolerating a regular diet. WBC count is down again this morning. Hgb is up to 11.3. Liver enzymes are back to normal and platelets are increasing. Const: COMMON NORMALS: no acute distress, average body habitus, patient oriented x3, no limitations, healthy appearing, alert and well nourished GENERAL APPEARANCE: cooperative, comfortable, well kempt and well developed ORIENTATION/CONSCIOUSNESS: Yes awake, Yes oriented to person, Yes oriented to place and Yes oriented to time Resp: COMMON NORMALS: normal respiratory effort EFFORT & INSPECTION: Yes able to speak in complete sentences GI: COMMON NORMALS: Soft to palpation and non-tender INSPECTION: Yes abdominal wall ecchymosis PALPATION: Yes Soft to palpation Extremity: COMMON NORMALS: no clubbing, cyanosis or edema and no calf tenderness Neuro: COMMON NORMALS: patient oriented x3 SENSORIUM/ORIENTATION: Yes alert, Yes oriented to person, Yes oriented to place and Yes oriented to time Psych: APPEARANCE: Yes well kempt Urinary Catheter Management^: Khan: Cath Placed During This Visit: yes, but has since been removed by the nurse Reason for Continuing Indwelling Catheter: Decision to DC Catheter Urinary Catheter Date of Insertion: 07/01/21 Urinary Catheter Time of Insertion: 20:50 Date Urinary Catheter Removed: 07/03/21 Time Urinary Catheter Discontinued: 09:45 Data : 07/04/21 08:13 07/03/21 13:10 A&P Assessment and plan (1) Post-operative haemorrhage: stable. no further bleeding. Echymosis on abdomen appears to be improving patient has passed gas. She will eat lunch and we will make sure that she is tolerating the diet. continue with ambulation all labs have normalized she is ready to go home later today Status: Acute (2) Postoperative state: Status: Acute Attestations Medical Necessity Statement*: She will be discharged home today as long as she is able to tolerate a regular diet. Coding Level of Care Code Acute Computer Forensic Specialist for Issa Ji Diagnoses Post-operative haemorrhage Postoperative state Z98.890
[2021-07-04] MEDS: docusate sodium 100 mg Capsule PO (10:13)
[2021-07-04] MEDS: isosorbide mononitrate ER 30 mg Tablet PO (10:13)
[2021-07-04] MEDS: amlodipine 10 mg Tablet PO (10:14)
[2021-07-04] MEDS: pantoprazole DR 40 mg Tablet PO (10:14)
[2021-07-04] MEDS: lisinopril 20 mg Tablet PO (10:14)
[2021-07-04] MEDS: pregabalin 100 mg Capsule PO (10:14)
[2021-07-04] MEDS: hydroCHLOROthiazide 25 mg Tablet 12.5 MG PO (10:14)
--- NOTE | 2021-07-04 10:25 | PC.NURSE ---
bruising noted to pt's abdomen, upper thighs and groin. Small amount of bruising extended outside of silver made with 1900 nurse last night. Bruising is same as check with 0700 nurse this morning.. Pt states bruising is uncomfortable but not painful. Will continue to monitor
[2021-07-04 10:26] VITALS: BP 161/67; PULSE 70; RESP 15; TEMP 36.8; O2SAT 97
[2021-07-04 10:37] VITALS: RESP 18
[2021-07-04] MEDS: methIMAzole 5 MG Tablet PO (10:45)
--- NOTE | 2021-07-04 14:29 | P.DS_ITS ---
Discharge Providers Date of Admission: 07/01/21 21:36 Date of Discharge: July 04, 2021 Attending Provider at Admission: Brandy Augustine MD Attending Provider at Discharge: Brandy Augustine MD Primary Care Provider: Lizzette Tucker MD Diagnoses at Discharge Discharge Diagnosis (1) Post-operative haemorrhage: Status: Resolved (2) Postoperative state: Status: Acute Reason for Visit Reason for Visit: MULTIPLE SYNCOPAL EPISODES Hospital Course Hospital Course The patient was admitted from the ER a few hours after arriving home from having a hysteroscopy, dilation and curettage that morning. She had a CT scan which showed a hemorrhage in the pelvis and active bleeding. She received two units of blood in the ER and was taken to surgery for exploratory laparotomy. The surgery revealed a small defect in the cervix that was bleeding into the retroperitoneum. There was a large clot in the left pelvic sidewall. An abdominal hysterectomy with bilateral salpingoophorectomy was performed. This completely controlled the bleeding. The patient has chronic constipation and is on several medications to keep her regular. For this reason, a liquid diet was started until she was able to pass gas. It was advanced to full liquids the following day. She did not have flatus until POD #3. On POD#1, we tried to get her pain under control and have her ambulate. On POD#2, Bruising appeared around her incision. It was extensive. The patient reports that she bruises easily. She had a heating pad in the same area and it was thought that this exacerbated the normal bruising. That evening, the patiet's pain increased. She also had some increased swelling in her feet. Her hemoglobin dropped from 9.5 to 7.2. Two additional units of blood were ordered. A CT scan was performed which showed no active bleeding in the pelvis and resolution of the previous hematoma. It did show some edema in the abdominal wall. She was given 40 mg of lasix IV. She had 4750 ml of urine out in less than 24 hours. She started feeling better. Her Hemoglobin increased to 11.3. She was able to pass gas. Her diet was advanced. Her pain was well controlled. She requested discharge home. She was discharged in stable condition. Physical Exam Urinary Catheter Management^: Khan: Cath Placed During This Visit: yes, but has since been removed by the nurse Reason for Continuing Indwelling Catheter: Decision to DC Catheter Urinary Catheter Date of Insertion: 07/01/21 Urinary Catheter Time of Insertion: 20:50 Date Urinary Catheter Removed: 07/03/21 Time Urinary Catheter Discontinued: 09:45 Discharge Data Data Completed and Pending: Completed Studies During Hospitalization Category Date Time Status CT abdomen pelvis wo con [id number] Stat Cat Scan 07/03/21 14:[address] angio chest w abd pel w con Urge nt Cat Scan 07/01/21 16:[address] head wo con* 7 [id number] Urgent Cat Scan 07/01/21 16:18 Completed Pending at discharge Category Date Time Status Leukocyte Reduced RBC Stat Lab 07/01/21 19:42 Results Type and Screen S tat Lab 07/01/21 19:42 Results Pathology: Surgic al [PTH] Routine Pth 07/01/21 22:26 Received Labs from last 24 hours 07/04/21 07/03/21 07/03/21 08:13 13:10 13:10 WBC 11.5 H RBC 3.98 L Hgb 11.3 L D Hct 33.8 L D MCV 84.9 D MCH 28.4 MCHC 33.4 RDW 16.4 H Plt Count 120 L MPV 10.8 H Neut % (Auto) 68.1 Lymph % (Auto) 21.8 [place] % (Auto) 9.1 Eos % (Auto) 0.3 Baso % (Auto) 0.4 Neut # (Auto) 7.82 H Lymph # (Auto) 2.5 [place] # (Auto) 1.0 H Eos # (Auto) 0.0 Baso # (Auto) 0.1 Nucleated RBC % (a uto) 0 Nucleated RBCs # 0.0 Sodium 134 L Potassium 4.1 Chloride 105 Carbon Dioxide 20 L Anion Gap 13.1 BUN 17 Creatinine 1.0 H GFR Calculation 55.6 L Glucose 122 H Estimat Average Gl ucose 97 Hemoglobin A1c 5.0 Calculated Osmolal ity 281 L Calcium 7.3 L Total Bilirubin 0.3 AST 55 H ALT 22 Alkaline Phosphata se 73 Total Protein 4.6 L Albumin 2.6 L Globulin 2.0 Blood Type Rho(D) Type Antibody Screen Crossmatch 07/01/21 19:42 WBC RBC Hgb Hct MCV MCH MCHC RDW Plt Count MPV Neut % (Auto) Lymph % (Auto) [place] % (Auto) Eos % (Auto) Baso % (Auto) Neut # (Auto) Lymph # (Auto) [place] # (Auto) Eos # (Auto) Baso # (Auto) Nucleated RBC % (a uto) Nucleated RBCs # Sodium Potassium Chloride Carbon Dioxide Anion Gap BUN Creatinine GFR Calculation Glucose Estimat Average Gl ucose Hemoglobin A1c Calculated Osmolal ity Calcium Total Bilirubin AST ALT Alkaline Phosphata se Total Protein Albumin Globulin Blood Type O Positive Rho(D) Type Positive Antibody Screen Negative Crossmatch See Detail Vitals: Last Vital Signs Temp 98.2 F 07/04/21 10:26 Pulse 70 07/04/21 10:26 Resp 18 07/04/21 10:37 BP 161/67 07/04/21 10:26 Pulse Ox 97 07/04/21 10:26 Discharge Plan Discharge Patient Disposition: Home Condition: Stable Prescriptions: Continued lisinopril-hydrochlorothiazide 20-12.5 mg tablet 1 tab PO DAILY RF: 0 amlodipine 10 mg tablet 10 mg PO DAILY RF: 0 isosorbide mononitrate 30 mg tablet extended release 24 hr 30 mg PO DAILY RF: 0 lorazepam 1 mg tablet 1 mg PO BID PRN (Reason: Anxiety) RF: 0 polyethylene glycol 3350 8.5 gram powder in packet 8.5 gm PO DAILY RF: 0 methimazole 10 mg tablet 5 mg PO Q2D RF: 0 lidocaine 5 % adhesive patch,medicated 1 patch TOPICAL DAILY PRN (Reason: Pain) RF: 0 Linzess 290 mcg capsule 290 mcg PO DAILY MDD SEE PHARMACY COMMENT RF: 0 Caltrate 600 plus D 600 mg (1,500 mg)-800 unit tablet,chewable 1 tab PO DAILY RF: 0 aspirin [Adult Aspirin Regimen] 81 mg tablet,delayed release (DR/EC) 81 mg PO DAILY RF: 0 omeprazole 40 mg capsule,delayed release(DR/EC) 40 mg PO DAILY Qty: 30 RF: 2 ondansetron HCl 8 mg Tablet 8 mg PO Q8H PRN (Reason: Nausea) RF: 0 morphine 15 mg tablet 15 mg PO BID PRN (Reason: Pain) RF: 0 atorvastatin 80 mg tablet 80 mg PO BEDTIME RF: 0 nitroglycerin 0.4 mg Tablet, Sublingual 0.4 mg SUBLINGUAL Q5M PRN (Reason: Chest Pain) RF: 0 morphine 15 mg Tablet Extended Release 15 mg PO Q12H RF: 0 pregabalin [Lyrica] 100 mg capsule 100 mg PO BID RF: 0 No Action oxycodone-acetaminophen 5-325 mg tablet 2 tab PO Q6H PRN (Reason: Severe Pain) 7 Days Qty: 20 RF: 0 Discharge Orders: Discharge Order (Routine); Ordered 07/04/21 Ordered By: Brandy Augustine Referrals: Brandy Augustine MD [Physician] - 07/07/21 10:45 am (* Your incision check follow up appointment is with Dr. Augustine on Wednesday07/07/2021 at 10:45am) Patient Instructions: Abdominal Hysterectomy (DC), Exploratory Laparotomy (DC), Open Salpingo-oophorectomy (DC), OB Discharge Report, OB Food/Drug Interaction Guide, Opioid Safety Discharge Attestations Time Spent in Discharge Care*: less than 30 min Quality Metrics Clinical Quality Measures During this hospital stay, did patient experience: None Coding Level of Care Code Acute Chg FW DC note Diagnoses Post-operative haemorrhage Postoperative state Z98.890
[2021-07-04 15:12] VITALS: BP 125/59; PULSE 65; RESP 16; TEMP 37; O2SAT 96
--- NOTE | 2021-07-04 16:14 | P.PN_ITS ---
Subjective Subjective: Interval history: The patient is doing well. She has tolerated a regular diet and desires to be discharged to home. Vitals/I&O/Wt Last Vital Signs Temp 98.6 F 07/04/21 15:12 Pulse 65 07/04/21 15:12 Resp 16 07/04/21 15:12 BP 125/59 07/04/21 15:12 Pulse Ox 96 07/04/21 15:12 Physical Exam Urinary Catheter Management^: Khan: Cath Placed During This Visit: yes, but has since been removed by the nurse Reason for Continuing Indwelling Catheter: Decision to DC Catheter Urinary Catheter Date of Insertion: 07/01/21 Urinary Catheter Time of Insertion: 20:50 Date Urinary Catheter Removed: 07/03/21 Time Urinary Catheter Discontinued: 09:45 Data : 07/04/21 08:13 07/03/21 13:10 A&P Assessment and plan (1) Postoperative state: Status: Acute Attestations Medical Necessity Statement*: the patient is discharged home Coding Level of Care Code Acute Integrated Circuit Design Engineer for Issa Ji Diagnoses Postoperative state Z98.890
== END 2021-07-04 16:14 | disposition home or self-care (01) | DRG 983 ==
LOC: ER 20:10 → OPS 20:13 → OBGYN 21:40
PROVIDERS: Emergency Medicine; Admitting Provider Obstetrics & Gynecology; Emergency Provider Emergency Medicine; PCP Family Medicine; Visit Provider Obstetrics & Gynecology
PROC: 0UT90ZZ Resection of Uterus, Open Approach (ICD-10-PCS; CPT 49000; principal; 2021-07-01 21:15)
PROC: 0UT90ZZ Resection of Uterus, Open Approach (ICD-10-PCS; CPT 58150; 2021-07-01 21:15)
PROC: 0UT90ZZ Resection of Uterus, Open Approach (ICD-10-PCS; CPT 58720; 2021-07-01 21:15)
DX: N99.820 Postprocedural hemorrhage of a genitourinary system organ or structure following a genitourinary system procedure (principal); I25.10 Atherosclerotic heart disease of native coronary artery without angina pectoris; Z95.5 Presence of coronary angioplasty implant and graft; I73.9 Peripheral vascular disease, unspecified
CPT/HCPCS: 36415; 36430; 70450; 71275; 74176; 74177; 80053; 83036; 83605; 83735; 84443; 84484; 85014; 85018; 85025; 85027; 86850; 86900; 86920; 88305; 88307; 93005; 96361; 96365; 96374; 96375; 99285; J0330; J0690; J1100; J1170; J1885; J1940; J2270; J2405; J2704; J2710; J3010; J3490; J7030; P9016; Q9967

== ENCOUNTER → 2021-08-19 11:33 | Outpatient (BNVA) | payer MEDICARE, OTHER, SELFPAY | PROVIDERS: PCP Family Medicine; Visit Provider Internal Medicine | DX: R70.0 Elevated erythrocyte sedimentation rate (principal); Z79.899 Other long term (current) drug therapy; R76.8 Other specified abnormal immunological findings in serum | CPT/HCPCS: 36415; 80053; 85025; 85651; 86140 ==

== ENCOUNTER → 2021-08-20 16:44 | Outpatient (BNVA) | payer MEDICARE, OTHER, SELFPAY | PROVIDERS: PCP Family Medicine; Visit Provider Internal Medicine | DX: R70.0 Elevated erythrocyte sedimentation rate (principal); Z79.899 Other long term (current) drug therapy | CPT/HCPCS: 80053; 85025; 85651; 86140 ==

== ENCOUNTER → 2021-08-25 09:46 | Outpatient (BNVA) | payer MEDICARE, OTHER, SELFPAY | PROVIDERS: PCP Family Medicine; Visit Provider Internal Medicine | DX: I77.6 Arteritis, unspecified (principal); B02.29 Other postherpetic nervous system involvement; R23.3 Spontaneous ecchymoses; R76.8 Other specified abnormal immunological findings in serum; R74.8 Abnormal levels of other serum enzymes; R70.0 Elevated erythrocyte sedimentation rate; R74.01 Elevation of levels of liver transaminase levels; Z79.52 Long term (current) use of systemic steroids; E04.1 Nontoxic single thyroid nodule; R63.4 Abnormal weight loss; Z68.20 Body mass index [BMI] 20.0-20.9, adult; F17.210 Nicotine dependence, cigarettes, uncomplicated | CPT/HCPCS: 99214 ==

== ENCOUNTER 2021-11-10 15:06 | Outpatient (CLI) | payer MEDICARE, OTHER, SELFPAY ==
[2021-11-10 15:48] LABS: Basophils % 0.5 %; Eosinophils # 0.1 10^3/uL (0.0-0.8); Eosinophils % 1.6 %; Hemoglobin 13.3 g/dL (11.5-15.3); Lymphocytes # 2.6 10^3/uL (0.8-4.8); Lymphocytes % 41.4 %; Mean Corpuscular HGB Conc 32.4 g/dL (30.0-36.0); Mean Corpuscular Hemoglobin 30.9 pg (28.0-34.0); Mean Corpuscular Volume 95.1 fl (81-99); Mean Platelet Volume 10.9 fL (7.4-10.4); Monocytes # 0.5 10^3/uL (0.2-0.9); Monocytes % 7.8 %; Neutrophils # 3.06 10^3/uL (1.8-7.7); Neutrophils % 48.5 %; Nucleated Red Blood Cells % 0 %; Platelet Count 141 10^3/cmm (130-400); Red Blood Count 4.31 10^6/uL (4.1-5.3); Red Cell Distribution Width 13.4 % (12.1-15.1); White Blood Count 6.3 10^3/uL (4.0-10.0)
[2021-11-10 16:05] LABS: Alanine Aminotransferase 39 U/L (0-33); Albumin Level 3.6 g/dL (3.5-5.2); Alkaline Phosphatase 108 IU/L (35-105); Anion Gap 13.6 (5-19); Aspartate Amino Transferase 60 U/L (0-32); Blood Urea Nitrogen 20 mg/dL (8-23); C Reactive Protein 4.4 mg/L (0.0-4.9); Calcium 8.3 mg/dL (8.5-10.5); Carbon Dioxide 27 mmol/L (22-29); Chloride 98 mmol/L (98-107); Complement C3 112 mg/dL (90-180); Globulin 2.9 g/dL (1.3-4.6); Glomerular Filtration Rate 62.6 mL/min (90-130); Glucose 92 mg/dL (65-115); Osmolality Calculated 280 mOsm/kg (285-295); Potassium 4.6 mmol/L (3.5-5.1); Sodium 134 mmol/L (136-145); Total Bilirubin 0.3 mg/dL (0.15-1.2); Total Protein 6.5 g/dL (6.6-8.7)
[2021-11-10 16:25] LABS: Erythrocyte Sedimentation Rate 21 mm/hr (0-15)
[2021-11-10 17:16] LABS: Add Urine Microscopic? YES; Bilirubin Urine Neg (Negative); Blood Urine Neg (Negative); Glucose Urine UA Norm (Normal); Ketones Urine Negative (Negative); Leukocyte Esterase Urine 2+ (Negative); Nitrate Urine Negative (Negative); Protein Urine Neg (Negative); Urine Appearance Clear (CLEAR); Urine Color Yellow (Yellow); Urobilinogen Urine Norm (Negative); pH Urine 5 (5-7)
[2021-11-10 18:35] LABS: Add Urine Culture? Yes; Bacteria Urine 1+ /hpf; Transitional Epi Cells Urine 0-4 /hpf; WBC Urine 15-25 /hpf (0-5)
[2021-11-14 14:48] LABS: ANCA Screen NEGATIVE (NEGATIVE)
== END 2021-11-10 15:07 | disposition home or self-care (01) ==
LOC: LAB 15:22
PROVIDERS: PCP Family Medicine; Visit Provider Internal Medicine
DX: I77.6 Arteritis, unspecified (principal); R74.8 Abnormal levels of other serum enzymes; R76.8 Other specified abnormal immunological findings in serum; R70.0 Elevated erythrocyte sedimentation rate
CPT/HCPCS: 36415; 80053; 81001; 83516; 85025; 85651; 86140; 86160; 87086

== ENCOUNTER → 2021-11-26 08:30 | Outpatient (BNVA) | payer MEDICARE, OTHER, SELFPAY | PROVIDERS: PCP Family Medicine; Visit Provider Internal Medicine Cardiovascular Disease | DX: R74.8 Abnormal levels of other serum enzymes (principal); E78.5 Hyperlipidemia, unspecified | CPT/HCPCS: 80061 ==

== ENCOUNTER 2021-12-22 10:53 | Outpatient (CLI) | payer MEDICARE, OTHER, SELFPAY ==
[2021-12-22 11:56] LABS: Alanine Aminotransferase 27 U/L (0-33); Albumin Level 4.1 g/dL (3.5-5.2); Alkaline Phosphatase 97 IU/L (35-105); Aspartate Amino Transferase 45 U/L (0-32); Total Bilirubin 0.4 mg/dL (0.15-1.2); Total Protein 8.1 g/dL (6.6-8.7)
== END 2021-12-22 10:54 | disposition home or self-care (01) ==
LOC: LAB 10:58
PROVIDERS: PCP Family Medicine; Visit Provider Internal Medicine Cardiovascular Disease
DX: R74.8 Abnormal levels of other serum enzymes (principal)
CPT/HCPCS: 80076

== ENCOUNTER → 2021-12-25 10:40 | Outpatient (BNVA) | payer MEDICARE, OTHER, SELFPAY | PROVIDERS: PCP Family Medicine; Visit Provider Internal Medicine | DX: I73.9 Peripheral vascular disease, unspecified (principal); R76.8 Other specified abnormal immunological findings in serum; R74.8 Abnormal levels of other serum enzymes; Z79.899 Other long term (current) drug therapy; F17.210 Nicotine dependence, cigarettes, uncomplicated | CPT/HCPCS: 99214 ==

== ENCOUNTER 2022-01-20 07:30 | Outpatient (CLI) | payer MEDICARE, OTHER, SELFPAY ==
--- NOTE | 2022-01-20 07:45 | US_ITS ---
WS: [id number] THYROID ULTRASOUND HISTORY: R70.0 - Elevated erythrocyte sedimentation rate COMPARISON: None available. Right lobe: 2.2 cm x 2.1 cm x 4.7 cm (w x ap x l). Volume: 11.5 cm3. Enlarged thyroid with heterogeneous coarse echotexture throughout. There is a small cyst within the m id gland measures r 1.2 x 1.1 x 1.6 cm. No solid mass. Left lobe: 1.2 cm x 1.4 cm x 4.1 cm (w x ap x l). Volume: 3.4 cm3. Mildly coarsened echotexture throughout the entire gland. No discrete nodule or increased vascularity . Isthmus: 0.4 cm. US/US thyroid [id number] IMPRESSION: 1. Mildly enlarged thyroid gland with coarse echotexture. May be from prior ep isodes of thyroiditis. 2. Benign RIGHT thyroid cyst.
== END 2022-01-20 07:31 | disposition home or self-care (01) ==
LOC: RAD 07:31
PROVIDERS: PCP Family Medicine; Visit Provider Internal Medicine
DX: R70.0 Elevated erythrocyte sedimentation rate (principal); E07.9 Disorder of thyroid, unspecified; E04.1 Nontoxic single thyroid nodule
CPT/HCPCS: 76536

== ENCOUNTER → 2022-03-04 09:33 | Outpatient (BNVA) | payer MEDICARE, OTHER, SELFPAY | PROVIDERS: PCP Family Medicine; Visit Provider Internal Medicine | DX: I77.6 Arteritis, unspecified (principal); R70.0 Elevated erythrocyte sedimentation rate; R76.8 Other specified abnormal immunological findings in serum; F17.210 Nicotine dependence, cigarettes, uncomplicated; E78.5 Hyperlipidemia, unspecified | CPT/HCPCS: 80053; 81003; 82550; 83516; 83735; 84100; 84439; 84443; 85025; 85651; 86140; 86160; 99214 ==

== ENCOUNTER → 2022-04-15 10:33 | Outpatient (BNVA) | payer MEDICARE, OTHER, SELFPAY | PROVIDERS: PCP Family Medicine; Visit Provider Internal Medicine | DX: R76.8 Other specified abnormal immunological findings in serum (principal); R06.02 Shortness of breath; I77.6 Arteritis, unspecified | CPT/HCPCS: 99214 ==

== ENCOUNTER → 2022-05-19 13:58 | Outpatient (BNVA) | payer MEDICARE, OTHER, SELFPAY | PROVIDERS: PCP Family Medicine; Visit Provider Internal Medicine | DX: I73.9 Peripheral vascular disease, unspecified (principal); E78.5 Hyperlipidemia, unspecified | CPT/HCPCS: 99213; 99214 ==

== ENCOUNTER → 2022-08-03 14:45 | Outpatient (BNVA) | payer MEDICARE, OTHER, SELFPAY | PROVIDERS: PCP Family Medicine; Visit Provider Internal Medicine | DX: I77.6 Arteritis, unspecified (principal); R76.8 Other specified abnormal immunological findings in serum; L23.7 Allergic contact dermatitis due to plants, except food; Z79.52 Long term (current) use of systemic steroids | CPT/HCPCS: 36415; 80053; 81001; 82550; 85025; 85651; 86036; 86140; 87086; 99213 ==

== ENCOUNTER → 2022-11-10 13:50 | Outpatient (BNVA) | payer MEDICARE, OTHER, SELFPAY | PROVIDERS: PCP Family Medicine; Visit Provider Internal Medicine | DX: I73.9 Peripheral vascular disease, unspecified (principal); E78.5 Hyperlipidemia, unspecified; F17.210 Nicotine dependence, cigarettes, uncomplicated | CPT/HCPCS: 99214 ==

== ENCOUNTER → 2022-12-01 11:27 | Outpatient (BNVA) | payer MEDICARE, OTHER, SELFPAY | PROVIDERS: PCP Family Medicine; Visit Provider Internal Medicine | DX: I77.6 Arteritis, unspecified (principal); I73.9 Peripheral vascular disease, unspecified; R76.8 Other specified abnormal immunological findings in serum | CPT/HCPCS: 36415; 80053; 81003; 85025; 85651; 86036; 86140; 99213 ==

== ENCOUNTER 2022-12-04 10:27 | Outpatient (CLI) | payer MEDICARE, OTHER, SELFPAY ==
--- NOTE | 2022-12-04 10:15 | USCV_ITS ---
Isadora Lamb Age: 67 Gender: F : 1955 Exam Date: 12/04/2022 10:40 Ordering Phys: Santy Sen M.D ([email or web address]) Technologist: CT Exam Location: [facility] [place] Indication: pvd Risk Factors: Previous Vascular Surgery: RIGHT LEFT BP: 129.0 / 73.00 BP: 137.0/ 65.00 0 0 Waveform Velocity (cm/s) Velocity (cm/s) Waveform Triphasic 127.7 Iliac Prox 182.3 Biphasic Triphasic 116.6 Iliac Mid 206.4 Biphasic Triphasic 136.4 Iliac Distal 160.9 Biphasic Triphasic 145.8 BUSINESS DIVISION CHAIR 144.3 Biphasic Biphasic 109.2 SFA Prox 166.3 Biphasic Biphasic 92.1 SFA Mid 133.1 Biphasic Biphasic 103.0 SFA Dist 149.3 Biphasic Biphasic 55.2 POP 97.3 Biphasic Biphasic 26.6 PRODUCTION WELDER 83.3 Biphasic Biphasic 41.3 DPA 73.6 Biphasic 1.1 ELOISE 1.1 FINDINGS elevated velocitiy noted in mid left iliac, waveforms wnl for age Mild to moderate diffuse plaques in the iliac and femoral arteries bilaterally Normal Doppler flow velocities. Resting ELOISE of 1.1 bilaterally CONCLUSIONS 1. Normal resting ABIs bilaterally 2. Mild to moderate diffuse plaques in the iliac and femoral arteries bilaterally 3. No significant stenosis, based on the above findings Dr Kaley Andrade MD [facility] (Electronically Signed) Final Date: 04 December 2022 16:56 S
== END 2022-12-04 10:28 | disposition home or self-care (01) ==
LOC: RAD 10:27
PROVIDERS: PCP Family Medicine; Visit Provider Internal Medicine
DX: M79.604 Pain in right leg (principal); M79.605 Pain in left leg; I73.9 Peripheral vascular disease, unspecified; I70.8 Atherosclerosis of other arteries
CPT/HCPCS: 93925

== ENCOUNTER → 2023-03-30 11:39 | Outpatient (BNVA) | payer MEDICARE, SELFPAY | PROVIDERS: PCP Family Medicine; Visit Provider Internal Medicine | DX: I77.6 Arteritis, unspecified (principal); E78.5 Hyperlipidemia, unspecified; R76.8 Other specified abnormal immunological findings in serum; R74.8 Abnormal levels of other serum enzymes; R70.0 Elevated erythrocyte sedimentation rate | CPT/HCPCS: 99214 ==

== ENCOUNTER 2023-03-31 10:13 | Outpatient (CLI) | payer MEDICARE, OTHER, SELFPAY ==
--- NOTE | 2023-03-31 10:30 | MM_ITS ---
WS: [id number] Bilateral screening 3D tomosynthesis digital mammogram, 03/31/2023 Clinical Data: SCREENING Comparison: 08/21/2020, 07/14/2017, 09/05/2015, 08/26/2012, 11/29/2006, 10/29/2006. Findings: The breast parenchymal pattern shows fibroglandular tissue. No spiculated masses or clustered calcifi cations are seen. There are no secondary signs of carcinoma. There are mole markers on both breasts. MM/[place] [id number] Impression: 1. Negative bilateral mammogram unchanged. 2. Recommend annual screening mammograms. BIRADS: 1-Negative FOLLOW UP: 1 Year Follow-up The CAD railroad car checker was used.
[2023-03-31 11:09] LABS: Basophils # 0.1 10^3/uL (0.0-0.1); Basophils % 0.7 %; Eosinophils # 0.2 10^3/uL (0.0-0.8); Eosinophils % 1.8 %; Hemoglobin 14.5 g/dL (11.5-15.3); Lymphocytes # 3.3 10^3/uL (0.8-4.8); Lymphocytes % 31.3 %; Mean Corpuscular Hemoglobin 31.6 pg (28.0-34.0); Mean Corpuscular Volume 95.9 fl (81-99); Mean Platelet Volume 10.3 fL (7.4-10.4); Monocytes # 0.7 10^3/uL (0.2-0.9); Monocytes % 6.7 %; Neutrophils # 6.33 10^3/uL (1.8-7.7); Neutrophils % 59.3 %; Nucleated Red Blood Cells % 0 %; Platelet Count 194 10^3/cmm (130-400); Red Blood Count 4.59 10^6/uL (4.1-5.3); Red Cell Distribution Width 12.7 % (12.1-15.1); White Blood Count 10.7 10^3/uL (4.0-10.0)
[2023-03-31 11:19] LABS: Erythrocyte Sedimentation Rate 6 mm/hr (0-15)
[2023-03-31 11:31] LABS: Alanine Aminotransferase 7 U/L (0-33); Albumin Level 4.1 g/dL (3.5-5.2); Alkaline Phosphatase 74 U/L (35-105); Anion Gap 12.4 (5-19); Aspartate Amino Transferase 18 U/L (0-32); Blood Urea Nitrogen 19 mg/dL (8-23); Calcium 8.8 mg/dL (8.5-10.5); Carbon Dioxide 30 mmol/L (22-29); Chloride 99 mmol/L (98-107); Globulin 3.1 g/dL (1.3-4.6); Glomerular Filtration Rate 49.5 mL/min (90-130); Glucose 87 mg/dL (65-115); Osmolality Calculated 286 mOsm/kg (285-295); Potassium 4.4 mmol/L (3.5-5.1); Sodium 137 mmol/L (136-145); Total Bilirubin 0.3 mg/dL (0.15-1.2); Total Protein 7.2 g/dL (6.6-8.7)
[2023-03-31 12:14] LABS: Urine Appearance Clear (CLEAR); Urine Color Yellow (Yellow)
[2023-03-31 12:15] LABS: Add Urine Microscopic? YES; Bilirubin Urine Neg (Negative); Blood Urine Trace (Negative); Glucose Urine UA Norm (Normal); Ketones Urine Negative (Negative); Leukocyte Esterase Urine Trace (Negative); Nitrate Urine Negative (Negative); Protein Urine Neg (Negative); RBC Urine 0-4 /hpf (0-2); Squamous Epithelial Cell Urine 0-4 /hpf (0-5); Urobilinogen Urine Norm (Negative); WBC Urine 0-4 /hpf (0-5); pH Urine 5 (5-7)
[2023-03-31 12:16] LABS: Add Urine Culture? No; Bacteria Urine TRACE /hpf; Mucus Urine TRACE /hpf
[2023-04-02 12:09] LABS: ANCA Screen NEGATIVE (NEGATIVE)
== END 2023-03-31 10:14 | disposition home or self-care (01) ==
PROVIDERS: Internal Medicine; PCP Family Medicine; Visit Provider Family Medicine
DX: I77.6 Arteritis, unspecified (principal); E78.5 Hyperlipidemia, unspecified; R70.0 Elevated erythrocyte sedimentation rate; R74.8 Abnormal levels of other serum enzymes; R76.8 Other specified abnormal immunological findings in serum; Z12.31 Encounter for screening mammogram for malignant neoplasm of breast
CPT/HCPCS: 36415; 77063; 77067; 80053; 81001; 85025; 85651; 86036; 86140

== ENCOUNTER → 2023-05-18 13:37 | Outpatient (BNVA) | payer MEDICARE, SELFPAY | PROVIDERS: PCP Family Medicine; Visit Provider Internal Medicine | DX: I73.9 Peripheral vascular disease, unspecified (principal); E78.5 Hyperlipidemia, unspecified; F17.210 Nicotine dependence, cigarettes, uncomplicated | CPT/HCPCS: 99214 ==

== ENCOUNTER → 2023-07-07 10:41 | Outpatient (BNVA) | payer MEDICARE, SELFPAY | PROVIDERS: PCP Family Medicine; Visit Provider Internal Medicine | DX: I77.6 Arteritis, unspecified (principal); R76.8 Other specified abnormal immunological findings in serum | CPT/HCPCS: 99214 ==

== ENCOUNTER 2023-10-11 11:33 | Outpatient (CLI) | payer MEDICARE, SELFPAY ==
[2023-10-11 12:10] LABS: Add Urine Microscopic? NO; Charge for UA Resulting for Rev
[2023-10-11 12:18] LABS: Basophils # 0.1 10^3/uL (0.0-0.1); Basophils % 0.8 %; Eosinophils # 0.2 10^3/uL (0.0-0.8); Eosinophils % 1.9 %; Hematocrit 44.8 % (36-47); Lymphocytes # 3.4 10^3/uL (0.8-4.8); Lymphocytes % 37.9 %; Mean Corpuscular HGB Conc 33.5 g/dL (30-55); Mean Corpuscular Hemoglobin 32.1 pg (27-33); Mean Corpuscular Volume 95.9 fl (85-98); Mean Platelet Volume 10.6 fL (7.4-10.4); Monocytes # 0.5 10^3/uL (0.2-0.9); Monocytes % 5.2 %; Neutrophils # 4.86 10^3/uL (1.8-7.7); Nucleated Red Blood Cells % 0 %; Platelet Count 181 10^3/cmm (157-399); Red Blood Count 4.67 10^6/uL (3.85-5.65)
[2023-10-11 12:26] LABS: Bilirubin Urine Neg (Negative); Blood Urine Neg (Negative); Erythrocyte Sedimentation Rate 5 mm/hr (0-15); Glucose Urine UA Norm (Normal); Ketones Urine Negative (Negative); Leukocyte Esterase Urine Negative (Negative); Nitrate Urine Negative (Negative); Protein Urine Neg (Negative); Specific Gravity, Urine 1.015 (1.005-1.030); Urine Appearance Clear (CLEAR); Urine Color Yellow (Yellow); Urobilinogen Urine Norm (Negative); pH Urine 5 (5-7)
[2023-10-11 12:55] LABS: Alanine Aminotransferase 8 U/L (0-33); Albumin Level 4.3 g/dL (3.5-5.2); Alkaline Phosphatase 78 U/L (35-105); Anion Gap 13.2 (5-19); Aspartate Amino Transferase 19 U/L (0-32); Blood Urea Nitrogen 18 mg/dL (8-23); Calcium 9.5 mg/dL (8.5-10.5); Carbon Dioxide 29 mmol/L (22-29); Chloride 97 mmol/L (98-107); Globulin 3.1 g/dL (1.3-4.6); Glomerular Filtration Rate 55.1 mL/min (90-130); Glucose 105 mg/dL (65-115); Osmolality Calculated 282 mOsm/kg (285-295); Potassium 4.2 mmol/L (3.5-5.1); Sodium 135 mmol/L (136-145); Total Bilirubin 0.3 mg/dL (0.15-1.2); Total Protein 7.4 g/dL (6.6-8.7)
[2023-10-14 08:41] LABS: ANCA Screen NEGATIVE (NEGATIVE)
== END 2023-10-11 11:34 | disposition home or self-care (01) ==
LOC: LAB 11:38
PROVIDERS: Internal Medicine; PCP Family Medicine; Visit Provider Internal Medicine
DX: I77.6 Arteritis, unspecified (principal)
CPT/HCPCS: 36415; 80053; 81003; 85025; 85651; 86036; 86140

== ENCOUNTER → 2023-11-04 10:14 | Outpatient (BNVA) | payer MEDICARE, SELFPAY | PROVIDERS: PCP Family Medicine; Visit Provider Internal Medicine | DX: M25.512 Pain in left shoulder (principal); I77.6 Arteritis, unspecified; R76.8 Other specified abnormal immunological findings in serum | CPT/HCPCS: 20610; 99214; J1030 ==

== ENCOUNTER → 2023-11-23 13:35 | Outpatient (BNVA) | payer MEDICARE, SELFPAY | PROVIDERS: PCP Family Medicine; Visit Provider Internal Medicine | DX: I73.9 Peripheral vascular disease, unspecified (principal); E78.5 Hyperlipidemia, unspecified; F17.210 Nicotine dependence, cigarettes, uncomplicated | CPT/HCPCS: 99214 ==

== ENCOUNTER 2023-12-01 08:48 | Outpatient (CLI) | payer MEDICARE, SELFPAY ==
--- NOTE | 2023-12-01 08:51 | CT_ITS ---
WS: [id number] LDCT LUNG CANCER SCREENING TECHNIQUE: Noncontrast CT of the chest with coronal and sagittal reformatted images. CLINICAL INFORMATION: NICOTINE DEPENDENCE, CIGARETTES COMPARISON: CTA 07/01/2021 DLP: 46.10 mGy.cm DIvol: Mean CTDIvol: 0.70 (mGy) All CT scans at [facility] use at least one of these dose optimization techniques: automat ed exposure control; mA and/or kV adjustment per patient size (includes targeted exams where dose is matched to clinical indication); or iterative reconstruction. FINDINGS: Stable 3 mm nodule superior segment LEFT lower lobe may be partially calcified. Additional tiny 2.5 m m nodule superior segment LEFT lower lobe posteriorly. Aortic calcification. Coronary calcification. Slightly ectatic ascending thoracic aorta measuring 3.5 cm. Nodular RIGHT thyroid lobe. No mediastinal or hilar lymphadenopathy. No axillary lymphadenopathy . Partially visualized increased attenuation RIGHT renal cysts. Low-attenuation renal cyst upper pole RIGHT kidney appears stable since 07/03/2021 measuring 2.8 cm. Adrenal glands are normal. Normal [employer] ju nction. IMPRESSION: CT/CT lung screening [id number] LUNG-RADS: 2-Benign Appearance or Behavior FOLLOW UP: 12 Month: Continue annual screening with LDCT
--- NOTE | 2023-12-01 08:54 | USCV_ITS ---
Isadora Lamb Age: 68 Gender: F : 1955 Exam Date: 12/01/2023 09:03 Ordering Phys: Santy Sen M.D ([email or web address]) Technologist: CT Exam Location: [facility] [place] Indication: STENOSIS Risk Factors: Previous Vascular Surgery: Right Brachial BP: / Left Brachial BP: / Right Left Velocity (cm/s) Spectral Plaque Velocity (cm/s) Spectral Plaque Syst/Diast Broadening Syst/Diast Broadening 92.90/ 14.90 Prox CCA 83.20 / 15.80 82.00/ 15.30 Mid CCA 84.10 / 19.30 73.60/ 12.50 Distal CCA 77.10 / 19.30 140.30/23.60 Prox ICA 238.10/ 77.30 148.60/30.60 Mid ICA 169.80/ 31.80 80.50/ 13.80 Distal ICA 93.10 / 25.90 151.40 ECA 105.10 1.60 ICA/CCA 2.83 Antegrade Vertebral Antegrade 56.20/ 13.20 cm/s 55.50/ 12.70 cm/s Bi Subclavian Bi 164.7 173.5 0 0 CONCLUSIONS Right ICA stenosis 50-69%. Moderate calcified atheromatous plaque right carotid bulb/ICA. Right ICA stenosis 70-99%. Moderate calcified atheromatous plaque. Recommend CTA neck Normal antegrade Doppler flow noted in the right vertebral artery. Normal antegrade Doppler flow noted in the left vertebral artery. Alessandro Lyles MD (Electronically Signed) Final Date: 01 December 2023 15:56 S
== END 2023-12-01 08:49 | disposition home or self-care (01) ==
LOC: RAD 08:48
PROVIDERS: PCP Family Medicine; Visit Provider Family Medicine
DX: I65.21 Occlusion and stenosis of right carotid artery; Z01.818 Encounter for other preprocedural examination; R91.1 Solitary pulmonary nodule; F17.210 Nicotine dependence, cigarettes, uncomplicated; Q61.02 Congenital multiple renal cysts
CPT/HCPCS: 71271; 93880

== ENCOUNTER 2023-12-22 10:07 | Outpatient (CLI) | payer MEDICARE, SELFPAY ==
--- NOTE | 2023-12-22 10:30 | CT_ITS ---
WS: [id number] CT ANGIOGRAM CAROTID ARTERIES HISTORY: bilat carotid stenosis TECHNIQUE: CT angiogram is performed of the carotid arteries. During arterial injection imaging is ob tained from the skull base to the aortic arch in 1.25 mm imaging. Coronal and sagittal reformats are submitted, MIP imaging also reviewed. Additional multiplanar reformats of the carotid arteries are bender bmitted. NASCET criteria utilized. All CT scans at [facility] use at least one of these dose optimization techniques: automated exposure control; mA and/or kV adjustment per patient size (includ es targeted exams where dose is matched to clinical indication); or iterative reconstruction. CONTRAST: Omnipaque 350; 100 mL IV. DLP: 186.91 mGy.cm COMPARISON: Carotid ultrasound 12/01/2023 Right carotid: Common carotid artery: Arises normally from the innominate artery. No significant plaque or stenosis. Internal carotid artery: Irregular plaque beginning at the bifurcation extending into the proximal IC A. Stenosis estimated at just under 50%. External carotid artery: Mild narrowing of the proximal ECA. Left carotid: Common carotid artery: Patent with mild plaque. Increasing plaque towards the bifurcation. Internal carotid artery: Narrowing of the lumen proximal ICA. Stenosis calculated at 64%. I suspect t he stenosis is closer to 70%. External carotid artery: Patent. Right vertebral artery: Unremarkable. Left vertebral artery: Unremarkable. Arises normally from the left subclavian artery. Subclavian arteries: Mild plaque RIGHT subclavian artery but no significant stenosis. There is more a dvanced plaque and intimal thickening involving the proximal LEFT subclavian artery. Mild stenosis at the origin. No occlusion. Upper thorax: Centrilobular emphysema. Thyroid gland: Normal. Osseous structures: Unremarkable. Skull base: Negative. IMPRESSION: 1. LEFT cervical ICA stenosis estimated between 64 and 70%. 2. RIGHT cervical ICA stenosis just less than 50%. 3. Moderate atherosclerotic disease in the LEFT subclavian artery. Mild stenosis at its origin but n o high-grade stenosis.
[2023-12-22 10:40] LABS: Blood Urea Nitrogen 27 mg/dL (8-23); Glomerular Filtration Rate 40.7 mL/min (90-130)
[2023-12-22] MEDS: iohexol 350 mg/mL 500 mL Btl (per mL) IV (10:47)
== END 2023-12-22 10:08 | disposition home or self-care (01) ==
LOC: RAD 10:07
PROVIDERS: PCP Family Medicine; Visit Provider Internal Medicine
DX: I65.23 Occlusion and stenosis of bilateral carotid arteries (principal)
CPT/HCPCS: 70498; 82565; 84520; Q9967

== ENCOUNTER → 2024-01-24 09:57 | Outpatient (BNVA) | payer MEDICARE, SELFPAY | PROVIDERS: PCP Family Medicine; Visit Provider Thoracic Surgery (Cardiothoracic Vascular Surgery) | DX: I65.23 Occlusion and stenosis of bilateral carotid arteries (principal); F17.210 Nicotine dependence, cigarettes, uncomplicated | CPT/HCPCS: 99203 ==

== ENCOUNTER 2024-04-25 11:23 | Observation (INO) | payer MEDICARE, SELFPAY ==
--- NOTE | 2024-04-17 10:59 | ANES.PREANE2 ---
Pre-Anesthetic Assessment Height/Weight: Height 1.68 m Operation Date: 04/25/24 07:00 Proposed Procedures p Anterior Repair Anterior Colporrhaphy 13372, 18378, N81.10, N81.6(Not Applicable) - Juaquin Yancey MD s Posterior Repair Posterior Colporrhaphy(Not Applicable) - Juaquin Yancey MD s Sling(Not Applicable) - Juaquin Yancey MD Familial anesthetic complications: None Social Tobacco and No alcohol Exam alert, oriented x 3, clear to auscultation bilaterally and regular rate & rhythm Airway Mallampati: Class II Dentition: false CV/HEM Hypertension and Peripheral Vascular Disease Metabolic Thyroid Disease Anesthetic Plan ASA status: 3 Anesthesia: General Risk of > 500 ml blood loss (7ml/kg in children): No Medications/Allergies Home Medications Medication Instructions Recorded Confirmed Last Taken Type isosorbide mononitrate 30 mg 30 mg PO DAILY esophageal spasms 05/27/20 04/17/24 04/17/24 History tablet,extended release 24 hr lorazepam 1 mg tablet 1 mg PO BID PRN Anxiety 05/27/20 04/17/24 04/15/24 History lisinopril 20 1 tab PO DAILY 11/01/20 04/17/24 04/17/24 History mg-hydrochlorothiazide 12.5 mg tablet morphine 15 mg tablet,extended 15 mg PO Q12H 02/03/21 04/17/24 04/17/24 History release nitroglycerin 0.4 mg sublingual 0.4 mg sublingual Q5M PRN Chest 02/03/21 04/17/24 05/14/21 History tablet Pain calcium carbonate 600 mg-vitamin 1 tab PO DAILY 03/19/21 04/17/24 04/17/24 History D3 20 mcg (800 unit) chewable tablet (Caltrate 600 plus D) pregabalin 100 mg capsule (Lyrica) 100 mg PO BID 05/19/21 04/17/24 04/17/24 History aspirin 81 mg tablet,delayed 81 mg PO DAILY 06/26/21 04/17/24 04/17/24 History release (Adult Aspirin Regimen) morphine 15 mg immediate release 15 mg PO BID PRN Pain 06/27/21 04/17/24 04/16/24 History tablet ondansetron HCl 8 mg tablet 8 mg PO Q8H PRN Nausea 06/27/21 04/17/24 03/18/24 History amlodipine 5 mg tablet 5 mg PO DAILY 03/04/22 04/17/24 04/17/24 History omeprazole 40 mg capsule,delayed 40 mg PO DAILY #30 caps 06/22/22 04/17/24 04/17/24 Rx release methimazole 5 mg tablet 5 mg PO .every other day 01/24/24 04/17/24 04/17/24 History omega-3 fatty acids 1,000 mg 1,200 mg PO DAILY 01/24/24 04/17/24 04/16/24 History capsule (Fish Oil Concentrate) polyethylene glycol 3350 8.5 gram 8.5 g PO DAILY PRN Constipation 01/24/24 04/17/24 03/18/24 History oral powder packet rosuvastatin 20 mg tablet 20 mg PO DAILY #90 tabs 02/03/24 04/17/24 04/16/24 Rx Allergies Allergy/AdvReac Type Severity Reaction Status Date / Time atorvastatin AdvReac Mild Elevates Verified 04/17/24 08:39 Liver Enzymes [facility] Medical History Hyperlipidemia LDL goal <100 Lupus Liver cirrhosis Pain management contract signed Hx of herpes zoster Peripheral arterial disease Claudication of both lower extremities Family History Denies family history of Diabetes CAD (coronary artery disease) Clotting disorder Dementia Hyperlipidemia Chronic kidney disease (CKD) Anesthesia complication Bleeding disorder Family history of premature coronary artery disease Lung disease Cancer Hypertension Social History Smoking and tobacco/nicotine status: current every day tobacco/nicotine user cigarettes Packs smoked per day: 1.5 Alcohol intake: never Substance/Drug Use: never Data Anesthesia Cardiac Studies: No Data to Display
[2024-04-25] VITALS (15 sets, daily range): BP systolic 110–166; BP diastolic 55–81; PULSE 52–90; RESP 16–20; TEMP 36.1–36.9; O2SAT 89–99; BMI 20.6
[2024-04-25 09:12] LABS: Add Urine Microscopic? NO; Charge for UA Resulting for Rev
--- NOTE | 2024-04-25 09:14 | W.PM.OPSUD ---
Surgery/Procedure H&P Update DATE OF PROCEDURE: April 25, 2024 DATE H&P PERFORMED: 04/17/24 H&P UPDATE INFORMATION: I have reviewed H&P completed within last 30 days, I have examined patient prior to procedure and No changes to prior documentation PREOP DIAGNOSIS: Cystocele, rectocele PLANNED PROCEDURE: Operation Date: 04/25/24 09:55 Proposed Procedures p Anterior Repair Anterior Colporrhaphy 48305, 51897, N81.10, N81.6(Not Applicable) - Juaquin Yancey MD s Posterior Repair Posterior Colporrhaphy(Not Applicable) - Juaquin Yancey MD s Sling(Not Applicable) - Juaquin Yancey MD
[2024-04-25 09:26] LABS: Bilirubin Urine Neg (Negative); Blood Urine Neg (Negative); Glucose Urine UA Norm (Normal); Ketones Urine Negative (Negative); Leukocyte Esterase Urine Negative (Negative); Nitrate Urine Negative (Negative); Protein Urine Neg (Negative); Urine Appearance Clear (CLEAR); Urine Color Yellow (Yellow); Urobilinogen Urine Norm (Negative); pH Urine 5 (5-7)
[2024-04-25] MEDS: sodium chloride 0.9% 500 ML IV (09:28)
[2024-04-25] MEDS: enoxaparin 30 mg/0.3 mL Syringe SUBCUT (09:43)
[2024-04-25] MEDS: scopolamine 1.5 Patch 1 PATCH TRANSDERMA (09:45)
[2024-04-25 09:49] LABS: Basophils # 0.1 10^3/uL (0.0-0.1); Basophils % 0.9 %; Eosinophils # 0.2 10^3/uL (0.0-0.8); Eosinophils % 2.7 %; Hematocrit 43.2 % (36-47); Lymphocytes # 3.2 10^3/uL (0.8-4.8); Lymphocytes % 38.1 %; Mean Corpuscular HGB Conc 33.6 g/dL (30-55); Mean Corpuscular Hemoglobin 32.2 pg (27-33); Mean Platelet Volume 10.7 fL (7.4-10.4); Monocytes # 0.6 10^3/uL (0.2-0.9); Monocytes % 6.9 %; Neutrophils # 4.34 10^3/uL (1.8-7.7); Neutrophils % 51.3 %; Nucleated Red Blood Cells % 0 %; Platelet Count 146 10^3/cmm (157-399); White Blood Count 8.46 10^3/uL (3.29-11.43)
[2024-04-25] MEDS: sodium chloride 0.9% 1,000 ML 30 ML IV (09:53)
--- NOTE | 2024-04-25 09:53 | P.ANESUD_ITS ---
Pre-Anesthetic Update Pre-Anesthetic Assessment: Date of Surgery/Procedure: 04/25/24 Preop Mireya gnosis: Cystocele, rectocele Proposed Procedure: Operation Date: 04/25/24 09:55 Proposed Procedures p Anterior Repair Anterior Colporrhaphy 24663, 58680, N81.10, N81.6(Not Applicable) - Juaquin Yancey MD s Posterior Repair Posterior Colporrhaphy(Not Applicable) - Juaquin Yancey MD s Sling(Not Applicable) - Juaquin Yancey MD Any changes to Pre-Anesthetic Assessment?: No Last Intake: Intake Last Liquid Date 04/24/24 Last Liquid Time 23:00 Last Solid Date 04/24/24 Last Solid Time 23:00 Labs Last 48hrs: Short CBC 04/25/24 Range/Units 09:10 WBC 8.46 (3.29-11.43) 10^ 3/uL Hgb 14.50 (11.27-16.99) g/ dL Hct 43.2 (36-47) % MCV 96.0 (85-98) fl Plt Count 146 L (157-399) 10^3/c mm Neut % (Auto) 51.3 % Neut # (Auto) 4.34 (1.8-7.7) 10^3/u L Urine 04/25/24 Range/Units 09:05 Urine Color Yellow (Yellow) Urine Appearance Clear (CLEAR) Urine pH 5 (5-7) Ur Specific Gravit y 1.010 (1.005-1.030) Urine Protein Neg (Negative) Urine Glucose (UA) Norm (Normal) Urine Ketones Negative (Negative) Urine Nitrate Negative (Negative) Urine Bilirubin Neg (Negative) Ur Leukocyte Amada ase Negative (Negative) Vitals: Temperature 98.4 F 04/25/24 08:47 Temperature Source Temporal Artery S can 04/25/24 08:47 Pulse Rate 64 04/25/24 08:47 Pulse Rhythm Regular 04/25/24 08:52 Pulse Strength 3+ Normal 04/25/24 08:52 Respiratory Rate 18 04/25/24 08:47 Blood Pressure 166/76 04/25/24 08:47 Blood Pressure Merari n 106 04/25/24 08:47 Pulse Oximetry 95 04/25/24 08:47 Oxygen Delivery Me thod Room Air 04/25/24 08:52 Exam: Pre-Anes Outpt Exam: alert, oriented x 3, clear to auscultation bilaterally and regular rate & rhythm Cardiac Studies: No Data to Display
[2024-04-25] MEDS: ceFAZolin 2,000 MG in sodium chloride 0.9% (plus) 50 ML 100 MG IV (10:13)
[2024-04-25] MEDS: lidocaine-epi 2% PF 1:200,000 20 mL SDV XX (10:55)
--- NOTE | 2024-04-25 11:29 | P.OP_ITS ---
Operative Report Date of procedure: April 25, 2024 Pre-op diagnosis: Cystocele Mixed incontinence Mild rectal Post-op diagnosis: same Procedure done: Anterior colporrhaphy augmented with allograft Mid urethral sling Cystoscopy Implants: Coloplast Altis sling Coloplast dermis allograft Surgeon: Juaquin Yancey MD Estimated blood loss (mL): 50 IV fluids (mL): 1,100 Urine output (mL): 200 Complications: None Procedure: After obtaining informed consent, the patient was taken to the operating room and placed in the supine position, given general anesthesia, and prepped and draped in sterile fashion. The abdomen, vulva and vagina were prepped and draped in a sterile manner. A time out procedure was performed. The vaginal mucosa was then injected in the midline with normal saline. The vaginal mucosa was scored in the midline with the Bovie approximately 1 cm medial to the urethral meatus to 1 cm distal to the vaginal cuff. This vaginal mucosa was then undermined and then incised in the midline with the Metzenbaum scissors. The lateral aspects of the vaginal mucosa were then grasped with the Allis clamps and the vaginal mucosa was then dissected off the underlying fascia with the Metzenbaum scissors. Again, there was noted to be quite a bit of oozing at the incision, which was controlled with cautery. After adequate dissection w as performed, bilaterally. An Coloplast dermis allograft modified at time of application to fit spacea, 3 x 3 cm piece . The dermis allograft placed in front of cystocele ready to be implanted facing the vagina mucosa. Suture is placed at distal end of graft and placed towards vaginal cuff. Final suture is placed on proximal portion of the graft to complete the placement overlying the bladder. Then Interrupted vertical mattress sutures of 0 Vicryl were used to elevate the cystocele superiorly. The excessive vaginal mucosa was then trimmed with the Metzenbaum scissors and the vaginal mucosa was then reapproximated in the running interlocking fashion with 2-0 Vicryl. A vertical midline incision was made beneath the midurethra, nearly 1.5 cm length. Careful submucosal dissection was performed bilaterally up to the interior portion of the inferior pubic ramus. The insertion of adductor longus tendon on the patient?s pubic ramus was identified as reference land sulaiman. Palpated the notch along the internal edge of ischiopubic ramus where the adductor longus tendon and the inferior pubic ramus meet. The Altis single incision sling (SIS) was selected. Then the needle of the SIS inserted aiming at the location of this notch. One of the integrated self-fixating tips place onto the needle by sliding it over the end of the needle. The needle/sling assembly was inserted toward the location of identified reference notch making sure that the flat of the handle is perpendicular to the desired path. The needle was tracked along the posterior surface of the ischiopubic ramus until the midline sulaiman on the mesh is approximately at the midline position under the urethra. The needle was removed and the same was repeated on the contralateral side until the appropriate sling tension under the urethra was achieved ensuring that the mesh lays flat. The needle was removed and vaginal incision was closed in a running interlocking fashion with 2-0 Vicryl. After anterior colporrhaphy and mid urethral sling posterior repair was not necessary at this time. Bludigo was given IV. Then the Khan catheter was removed and cystoscope was inserted. The bladder was filled with sterile water. Complete evaluation of the bladder mucosa was performed noting no lacerations, dimpling, tears, bleeding of the mucosa or muscular layers. Both ureteral orifices were identified. Prompt excretion of blue urine from both ureteral orifices was noted. Cystoscope was withdrawn. The Khan catheter was replaced. Excellent hemostasis was obtained. A vaginal pack is placed overnight as postoperative support for the vaginal tissues after graft placement and closure of vaginal incisions. Sponge, lap, needle, and instrument counts were correct times three. The patient was taken to the recovery room, awake and in stable condition.
[2024-04-25 11:34] LABS: Alanine Aminotransferase < 5 U/L (0-33); Albumin Level 3.8 g/dL (3.5-5.2); Alkaline Phosphatase 96 U/L (35-105); Aspartate Amino Transferase 20 U/L (0-32); Blood Urea Nitrogen 25 mg/dL (8-23); Calcium 8.6 mg/dL (8.5-10.5); Carbon Dioxide 27 mmol/L (22-29); Chloride 100 mmol/L (98-107); Creatinine Clr Calc Pharmacy 41.6528; Globulin 2.5 g/dL (1.3-4.6); Glomerular Filtration Rate 44.7 mL/min (90-130); Glucose 92 mg/dL (65-115); Osmolality Calculated 288 mOsm/kg (285-295); Sodium 137 mmol/L (136-145); Total Bilirubin 0.2 mg/dL (0.15-1.2); Total Protein 6.3 g/dL (6.6-8.7)
[2024-04-25 11:43] LABS: Anion Gap 15.4 (5-19); Potassium 5.4 mmol/L (3.5-5.1)
[2024-04-25] MEDS: fentaNYL 50 mcg/mL INJ 2mL IVP (11:45)
[2024-04-25] MEDS: ketorolac 30 mg/mL INJ IVP ×2 (13:23→17:56)
--- NOTE | 2024-04-25 14:04 | ANE.PACU2 ---
Inpatient post-anesthesia follow up: Airway intact: Yes Vital signs: Temperature 97.4 F Pulse Rate 73 Respiratory Rate 18 Blood Pressure 133/61 Pulse Oximetry 92 Oxygen Delivery Me thod Room Air Oxygen Flow Rate 6 Fraction of Inspir ed Oxygen Hydration adequate: Yes Nausea and vomiting: No Pain level: 2 Mental status: Baseline
[2024-04-25] MEDS: dextrose 5%-lactated ringers 1,000 ML 125 ML IV ×2 (14:33→22:42)
[2024-04-25] MEDS: HYDROcodone-acetaminophen 5-325 mg Tablet PO (16:33)
[2024-04-25] MEDS: docusate sodium 100 mg Capsule PO (17:55)
[2024-04-25] MEDS: pregabalin 100 mg Capsule PO (17:56)
[2024-04-25] MEDS: morphine ER (12 HR) 15 mg Tablet PO (20:39)
[2024-04-26] MEDS: ketorolac 30 mg/mL INJ IVP (01:09)
[2024-04-26] MEDS: HYDROcodone-acetaminophen 5-325 mg Tablet PO ×2 (01:15→11:37)
--- NOTE | 2024-04-26 05:48 | PC.NURSE ---
Khan and vaginal packing removed @ 0515. Pt tolerated well, tip intact.
[2024-04-26 05:56] LABS: Hematocrit 35.2 % (36-47); Mean Corpuscular HGB Conc 33.5 g/dL (30-55); Mean Corpuscular Hemoglobin 32.1 pg (27-33); Mean Corpuscular Volume 95.7 fl (85-98); Mean Platelet Volume 10.8 fL (7.4-10.4); Platelet Count 134 10^3/cmm (157-399); Red Blood Count 3.68 10^6/uL (3.85-5.65); Red Cell Distribution Width 11.9 % (12.1-15.1); White Blood Count 9.86 10^3/uL (3.29-11.43)
[2024-04-26 06:06] VITALS: BP 132/56; PULSE 62; RESP 18; TEMP 36.6; O2SAT 95
[2024-04-26] MEDS: calcium carb-vit d 600mg/400unit 1 Tablet 1 EACH PO (08:22)
[2024-04-26] MEDS: pantoprazole DR 40 mg Tablet PO (08:22)
[2024-04-26] MEDS: pregabalin 100 mg Capsule PO (08:23)
[2024-04-26] MEDS: hydroCHLOROthiazide 25 mg Tablet 12.5 MG PO (08:23)
[2024-04-26] MEDS: docusate sodium 100 mg Capsule PO (08:24)
[2024-04-26] MEDS: aspirin 81 mg EC Tablet PO (08:24)
[2024-04-26] MEDS: lisinopril 20 mg Tablet PO (08:24)
[2024-04-26] MEDS: methIMAzole 5 MG Tablet PO (08:25)
[2024-04-26] MEDS: isosorbide mononitrate ER 30 mg Tablet PO (08:26)
[2024-04-26] MEDS: amlodipine 5 mg Tablet PO (08:26)
[2024-04-26] MEDS: morphine ER (12 HR) 15 mg Tablet PO (08:26)
--- NOTE | 2024-04-26 10:33 | PM.OBGYDC ---
Discharge Providers CHEMICAL ETCH OPERATOR Date of Admission: 04/25/24 11:23 Date of Discharge: 04/26/24 Attending Provider at Admission: Juaquin Yancey MD Attending Provider at Discharge: Juaquin Yancey MD Primary Care Provider: Lizzette Tucker MD Reason for Visit Reason for Visit: N81.10, N81.6 Hospital Course Hospital Course Mrs. Linn per 60-year-old female with a history of cystocele and urinary incontinence. She was admitted for planned total anterior colporrhaphy, posterior colporrhaphy and mid urethral sling. An anterior colporrhaphy augmented with allograft and mid urethral sling were performed without complications. Posterior was colporrhaphy was not performed as after anterior repair, the defect resolved. Overnight observation was uneventful. She is afebrile and hemodynamically stable postoperative day 1. Tolerating diet well. Ambulating without difficulty. PVR within normal limits. She was counseled regarding pelvic rest for 6 weeks (no sex, no tampons, no vaginal douches). Return to the emergency room if any fever, increased bleeding or pain. She was also counseled regarding the weight lifting limitations to 10 pounds. Physical Exam Narrative: GA: Alert and oriented ?3. HEENT: WNL. Heart: Regular rate and rhythm. Lungs: Clear to auscultation bilaterally. Abdomen: Bowel sounds present, nontender BRIDGE INSTRUCTOR: Spotting bleeding. Extremities: No edema, no cyanosis, no calves pain. History History History 3 Term 2 0 Miscarriages/Ectopic 1 Living Children 1 Discharge Data Studies Completed and Pending Laboratory Results WBC 9.86 10^3/uL (3.29-11.43) 04/26/24 05:25 RBC 3.68 10^6/uL (3.85-5.65) L 04/26/24 05:25 Hgb 11.80 g/dL (11.27-16.99) 04/26/24 05:25 Hct 35.2 % (36-47) L 04/26/24 05:25 MCV 95.7 fl (85-98) 04/26/24 05:25 MCH 32.1 pg (27-33) 04/26/24 05:25 MCHC 33.5 g/dL (30-55) 04/26/24 05:25 RDW 11.9 % (12.1-15.1) L 04/26/24 05:25 Plt Count 134 10^3/cmm (157-399) L 04/26/24 05:25 MPV 10.8 fL (7.4-10.4) H 04/26/24 05:25 Neut % (Auto) 51.3 % 04/25/24 09:10 Lymph % (Auto) 38.1 % 04/25/24 09:10 Oldham % (Auto) 6.9 % 04/25/24 09:10 Eos % (Auto) 2.7 % 04/25/24 09:10 Baso % (Auto) 0.9 % 04/25/24 09:10 Neut # (Auto) 4.34 10^3/uL (1.8-7.7) 04/25/24 09:10 Lymph # (Auto) 3.2 10^3/uL (0.8-4.8) 04/25/24 09:10 Oldham # (Auto) 0.6 10^3/uL (0.2-0.9) 04/25/24 09:10 Eos # (Auto) 0.2 10^3/uL (0.0-0.8) 04/25/24 09:10 Baso # (Auto) 0.1 10^3/uL (0.0-0.1) 04/25/24 09:10 Nucleated RBC % (auto) 0 % 04/25/24 09:10 Nucleated RBCs # 0.0 /100WBC 04/25/24 09:10 Sodium 137 mmol/L (136-145) 04/25/24 10:05 Potassium 5.4 mmol/L (3.5-5.1) H 04/25/24 10:05 Chloride 100 mmol/L (98-107) 04/25/24 10:05 Carbon Dioxide 27 mmol/L (22-29) 04/25/24 10:05 Anion Gap 15.4 (5-19) 04/25/24 10:05 BUN 25 mg/dL (8-23) H 04/25/24 10:05 Creatinine 1.2 mg/dL (0.5-0.9) H 04/25/24 10:05 GFR Calculation 44.7 mL/min (90-130) L 04/25/24 10:05 Glucose 92 mg/dL (65-115) 04/25/24 10:05 Calculated Osmolality 288 mOsm/kg (285-295) 04/25/24 10:05 Calcium 8.6 mg/dL (8.5-10.5) 04/25/24 10:05 Total Bilirubin 0.2 mg/dL (0.15-1.2) 04/25/24 10:05 AST 20 U/L (0-32) 04/25/24 10:05 ALT < 5 U/L (0-33) 04/25/24 10:05 Alkaline Phosphatase 96 U/L (35-105) 04/25/24 10:05 Total Protein 6.3 g/dL (6.6-8.7) L 04/25/24 10:05 Albumin 3.8 g/dL (3.5-5.2) 04/25/24 10:05 Globulin 2.5 g/dL (1.3-4.6) 04/25/24 10:05 Urine Color Yellow (Yellow) 04/25/24 09:05 Urine Appearance Clear (CLEAR) 04/25/24 09:05 Urine pH 5 (5-7) 04/25/24 09:05 Ur Specific Follett 1.010 (1.005-1.030) 04/25/24 09:05 Urine Protein Neg (Negative) 04/25/24 09:05 Urine Glucose (UA) Norm (Normal) 04/25/24 09:05 Urine Ketones Negative (Negative) 04/25/24 09:05 Urine Blood Neg (Negative) 04/25/24 09:05 Urine Nitrate Negative (Negative) 04/25/24 09:05 Urine Bilirubin Neg (Negative) 04/25/24 09:05 Urine Urobilinogen Norm mg/dL (Negative) 04/25/24 09:05 Ur Leukocyte Esterase Negative (Negative) 04/25/24 09:05 Blood Type O Positive 04/25/24 10:25 Rho(D) Type Rh positive 04/25/24 10:25 Antibody Screen Negative 04/25/24 10:25 Vitals Last Vital Signs Temp 97.9 F 04/26/24 06:06 Pulse 62 04/26/24 06:06 Resp 18 04/26/24 06:06 BP 132/56 04/26/24 06:06 Pulse Ox 95 04/26/24 06:06 O2 Del Method Room Air 04/26/24 06:06 O2 Flow Rate 2 04/25/24 15:15 Results Labs OB ([facility]): Blood Type O Positive 04/25/24 Antibody Screen Negative 04/25/24 Hct 35.2 % (36-47) L 04/26/24 Hgb 11.80 g/dL (11.27-16.99) 04/26/24 Rho(D) Type Rh positive 04/25/24 Plt Count 134 10^3/cmm (157-399) L 04/26/24 Hep Bs Antigen Non-reactive (Nonreactive) 11/01/20 Hep B Core Total Ab Non-reactive (Nonreactive) 11/01/20 Hepatitis C Antibody Non-reactive (Nonreactive) 11/01/20 TSH 0.59 uIU/mL (0.27-4.20) 03/04/22 Free T4 1.38 ng/dL (0.82-1.77) 03/04/22 Hemoglobin A1c 5.0 % (4.0-6.0) 07/03/21 Micro Urine Specimen 08/03/22 Discharge Plan Discharge Patient Disposition: Home Condition: Stable Prescriptions: New hydrocodone-acetaminophen 5-325 mg tablet 1 tab PO Q4H PRN (Reason: pain) Qty: 20 0RF acetaminophen 325 mg capsule 325 mg PO Q4H PRN (Reason: fever or pain) Qty: 60 0RF ibuprofen 800 mg tablet 800 mg PO TID PRN (Reason: pain) Qty: 60 0RF Continued lisinopril-hydrochlorothiazide 20-12.5 mg tablet 1 tab PO DAILY amlodipine 5 mg tablet 5 mg PO DAILY isosorbide mononitrate 30 mg tablet extended release 24 hr 30 mg PO DAILY lorazepam 1 mg tablet 1 mg PO BID PRN (Reason: Anxiety) Rx Instructions: take 1-2 tabs every 12 hours for anxiety polyethylene glycol 3350 8.5 gram powder in packet 8.5 g PO DAILY PRN (Reason: Constipation) Caltrate 600 plus D 600 mg (1,500 mg)-800 unit tablet,chewable 1 tab PO DAILY aspirin [Adult Aspirin Regimen] 81 mg tablet,delayed release (DR/EC) 81 mg PO DAILY methimazole 5 mg tablet 5 mg PO .every other day omega-3 fatty acids [Fish Oil Concentrate] 1,000 mg capsule 1,200 mg PO DAILY omeprazole 40 mg capsule,delayed release(DR/EC) 40 mg PO DAILY Qty: 30 2RF rosuvastatin 20 mg tablet 20 mg PO DAILY Qty: 90 3RF ondansetron HCl 8 mg Tablet 8 mg PO Q8H PRN (Reason: Nausea) morphine 15 mg tablet 15 mg PO BID PRN (Reason: Pain) Rx Instructions: IR as needed for break through pain nitroglycerin 0.4 mg Tablet, Sublingual 0.4 mg SUBLINGUAL Q5M PRN (Reason: Chest Pain) morphine 15 mg Tablet Extended Release 15 mg PO Q12H pregabalin [Lyrica] 100 mg capsule 100 mg PO BID Discharge Orders: Discharge Order (Routine); Ordered 04/26/24 Ordered By: Juaquin Yancey Referrals: Juaquin Yancey MD [Physician] - 2 weeks Discharge Diet: Usual diet Discharge Activity: Limit activity as instructed Patient Instructions: Urinary Bladder Suspension (DC), Acute Wound Care (DC), Opioid Safety (DC), Bladder Sling for Women (GEN), Anterior Vaginal Repair (GEN), OB Discharge Report, OB Food/Drug Interaction Guide, Opioid Safety, Post Anesthesia Care Activity Restrictions/Additional Instructions: 1. Please call [facility] on next working day to make your post-operative appointment in 2 weeks. 2. Please stay home until you come back to the clinic on first post-hospatilization check up. 3. Please follow instructions on your medications CAREFULLY. 4. If you have abdominal incision, do not cover it unless dressing is necessary because of drainage. OK to shower, but avoid bath. Leave steri-strips until they fall off. If they are still on one week after surgery, you may remove them. 5. If you had vaginal surgery or vaginal repair, Dr. Yancey may instruct you to take SITZ bath. 6. Yellow, blood tinged odorous vaginal discharge is usually normal after hysterectomy or vaginal surgeries. 7. No SEXUAL INTERCOURSE, tampons, or douches until you are completely released from the post-operative care. 8. Avoid constipation by eating right and maybe using some Metamucil or Milk of Magnesia. 9. All prescription refills are given during the working hours. Please do no wait till it runs out. Call the clinic at [phone] before your medication runs out. The clinic will get in touch with your doctor to prescribe medications if necessary. 10. Please remain within 40 mile radius from our hospital because emergencies do happen now and then during the post-operative period. 11. If you have stairs at home, take one step at a time slowly and minimize the number of trips. It helps to stay in one floor for the next few days. No lifting except what you can lift by one hand until you are released from the post-operative care. 12. Driving is discouraged until you are well healed. It may be 3-4 weeks before you feel strong enough to drive. You should be able to turn and look through the rear window without pain and you should be able to push the brake pedal very hard without pain before you drive. No fast rules, but SAFETY should be your primary concern. DO NOT drive if you are on sedating medications such as narcotics. 13. Call the clinic (during working hours) to make urgent appointment or go to the Emergency room, if any of the following occurs: i. Vaginal bleeding becomes heavy, more than a period. ii. Incision becomes red and sore, or drains pus. iii. Your TEMPERATURE is over 100.4F or you have chill. iv. IV site becomes red and swollen (a little ``knot?? is usually OK) v. Persistent nausea and vomiting vi. Persistent constipation or diarrhea vii. Rash or allergic reaction to medications. Discharge Attestations CHEMICAL ETCH OPERATOR Time Spent in Discharge Care*: greater than 30 min Coding Level of Care Code Acute Code for Chg Fwprince
[2024-04-26 11:30] VITALS: BP 123/45; PULSE 47; RESP 16; TEMP 36.9
[2024-04-26] MEDS: ibuprofen 800 mg tablet PO (11:37)
== END 2024-04-26 11:40 | disposition home or self-care (01) ==
LOC: OBGYN 11:24
PROVIDERS: Admitting Provider Obstetrics & Gynecology; PCP Family Medicine; Visit Provider Obstetrics & Gynecology
PROC: 0JQC0ZZ Repair Pelvic Region Subcutaneous Tissue and Fascia, Open Approach (ICD-10-PCS; CPT 57240; principal; 2024-04-25 09:55)
PROC: (CPT 57288; 2024-04-25 09:55)
PROC: 0TJB8ZZ Inspection of Bladder, Via Natural or Artificial Opening Endoscopic (ICD-10-PCS; CPT 52000; 2024-04-25 09:55)
DX: N81.10 Cystocele, unspecified (principal); N39.46 Mixed incontinence; I10 Essential (primary) hypertension; E78.5 Hyperlipidemia, unspecified; F17.210 Nicotine dependence, cigarettes, uncomplicated; Z79.82 Long term (current) use of aspirin
CPT/HCPCS: 57240; 57288; 36415; 51798; 80053; 81003; 85025; 85027; 86850; 86900; C1713; C1762; G0378; J0690; J1100; J1650; J1885; J2250; J2371; J2405; J2704; J3010; J3490; J7030; J7040; J7121

== ENCOUNTER → 2024-05-23 15:28 | Outpatient (BNVA) | payer MEDICARE, SELFPAY | PROVIDERS: PCP Family Medicine; Visit Provider Internal Medicine | DX: I73.9 Peripheral vascular disease, unspecified (principal); E78.5 Hyperlipidemia, unspecified | CPT/HCPCS: 99214 ==

== ENCOUNTER 2024-05-25 11:44 | Outpatient (CLI) | payer MEDICARE, SELFPAY ==
--- NOTE | 2024-05-25 11:45 | USCV_ITS ---
Isadora Lamb Age: 68 Gender: F : 1955 Exam Date: 05/25/2024 12:03 Ordering Phys: Nestor Abbott MD (Andy) ([email or web address] [place] Technologist: [place] [facility] [place]: cca disease Risk Factors: Previous Vascular Surgery: Right Brachial BP: / Left Brachial BP: / Right Left Velocity (cm/s) Spectral Plaque Velocity (cm/s) Spectral Plaque Syst/Diast Broadening Syst/Diast Broadening 92.90/ 29.00 Prox CCA 67.80 / 19.80 92.90/ 23.50 Mid CCA 75.80 / 19.80 173.80/30.50 Hetro Distal CCA 103.80/ 25.80 Hetro 144.40/40.20 Hetro Prox ICA 208.20/ 42.60 Hetro 124.20/20.00 Hetro Mid ICA 183.40/ 34.40 Hetro 124.20/28.70 Distal ICA 208.20/ 93.60 ECA 121.80 0.80 ICA/CCA 2.00 Antegrade Vertebral Antegrade 69.80/ 11.80 cm/s 47.80/ 9.90 cm/s Bi Subclavian Bi 140.0 180.2 0 0 CONCLUSIONS Right ICA stenosis 50-69%. Moderate calcified atheromatous plaque right carotid bulb/ICA. Left ICA stenosis 50-69% at the upper end of the range.. Moderate calcified atheromatous plaque left carotid bulb/ICA. Left ICA velocities decreased compared to 12/01/23 Normal antegrade Doppler flow noted in the right vertebral artery. Normal antegrade Doppler flow noted in the left vertebral artery. Alessandro Lyles MD (Electronically Signed) Final Date: 25 May 2024 14:41 S
== END 2024-05-25 11:45 | disposition home or self-care (01) ==
LOC: RAD 11:46
PROVIDERS: PCP Family Medicine; Visit Provider Thoracic Surgery (Cardiothoracic Vascular Surgery)
DX: I65.23 Occlusion and stenosis of bilateral carotid arteries (principal)
CPT/HCPCS: 93880

== ENCOUNTER 2024-06-26 10:16 | Emergency (ER) | payer MEDICARE, SELFPAY ==
[2024-06-26 10:28] VITALS: BP 200/73; PULSE 70; RESP 18; TEMP 36.7; O2SAT 98
[2024-06-26] MEDS: ondansetron 2 mg/ML SDV 2 mL 4 MG IVP (10:38)
[2024-06-26] MEDS: sodium chloride 0.9% 1,000 ML 999 ML IV (10:38)
[2024-06-26 10:48] LABS: Basophils # 0.1 10^3/uL (0.0-0.1); Basophils % 0.6 %; Eosinophils # 0.3 10^3/uL (0.0-0.8); Eosinophils % 3.4 %; Hematocrit 43.3 % (36-47); Lymphocytes % 21.6 %; Mean Corpuscular HGB Conc 33.9 g/dL (30-55); Mean Corpuscular Hemoglobin 31.6 pg (27-33); Mean Corpuscular Volume 93.1 fl (85-98); Mean Platelet Volume 10.3 fL (7.4-10.4); Monocytes # 0.6 10^3/uL (0.2-0.9); Monocytes % 6.3 %; Neutrophils # 6.35 10^3/uL (1.8-7.7); Neutrophils % 67.7 %; Nucleated Red Blood Cells % 0 %; Platelet Count 184 10^3/cmm (157-399); Red Blood Count 4.65 10^6/uL (3.85-5.65); Red Cell Distribution Width 11.9 % (12.1-15.1); White Blood Count 9.39 10^3/uL (3.29-11.43)
--- NOTE | 2024-06-26 10:55 | CTR_ITS ---
PROCEDURE INFORMATION: Exam: CT Abdomen And Pelvis With Contrast Exam date and time: 06/26/2024 11:09 AM Age: 68 years old Clinical indication: Abdominal pain; Generalized; Prior surgery; Surgery date: 6+ months; Surgery type: Hysto; Additional info: Abd pain TECHNIQUE: Imaging protocol: Computed tomography of the abdomen and pelvis with contrast. Radiation optimization: All CT scans at this facility use at least one of these dose optimization techniques: automated exposure control; mA and/or kV adjustment per patient size (includes targeted exams where dose is matched to clinical indication); or iterative reconstruction. Contrast material: OMNI 350; Contrast volume: 80 ml; Contrast route: INTRAVENOUS (IV); COMPARISON: CT abdomen pelvis wo con [id number] 07/03/2021 3:16 PM RADIATION DOSE METRICS: Total DLP (mGy-cm): 369.53 FINDINGS: Liver: Normal. No mass. Gallbladder and biliary ducts: Normal. No calcified stones. No ductal dilation. Pancreas: Normal. No ductal dilation. Spleen: Normal. No splenomegaly. Adrenal glands: Normal. No mass. Kidneys and ureters: Bilateral renal cysts. Stomach and bowel: Unremarkable. No obstruction. No mucosal thickening. Appendix: No evidence of appendicitis. Intraperitoneal space: Unremarkable. No free air. No significant fluid collection. Vasculature: Heavy calcifications of the abdominal aorta and iliac vessels. Lymph nodes: Unremarkable. No enlarged lymph nodes. Urinary bladder: Unremarkable as visualized. Reproductive: Hysterectomy. Bones/joints: Unremarkable. No acute fracture. Soft tissues: Unremarkable. CT/CT abdomen pelvis w con* [id number] IMPRESSION: No acute findings. COMMENTS: Consistent with the [employer]'s Incidental Findings Committee white paper (J Am Marjorie Radiol 2018): Any incidental renal lesion less than 1 cm or classified as too small to characterize, or any incidental cystic renal lesion characterized as simple-appearing, is likely benign. No follow-up imaging is recommended for these lesions per consensus recommendations based on imaging criteria.
--- NOTE | 2024-06-26 10:56 | ED_ITS ---
HPI - Nausea/Vomiting/Diarrhea 2 General: Chief complaint: Nausea/Vomiting/Diarrhea Stated complaint: [place], can't eat Time Seen by Provider: 06/26/24 10:19 History of Present Illness: 68-[facility] complaints of abdominal pain cramping nausea is not able to eat and drink anything. She has not had any solid bowel movements. She told the nurse she had no abdominal pain however when I examined her she was tender particularly in the epigastric and left upper quadrant areas. She does have a history of hypertension she took her blood pressure medications this morning. She denies any dysuria urgency or frequency denies any hematuria. No hematochezia melena hematemesis or coffee-ground emesis. Patient is on chronic narcotics for postherpetic neuralgia on her left flank. Associated nausea: Yes Associated symtoms: Reports nausea; Denies chest pain or dysuria Related Data Home Medications Medication Instructions Recorded Confirmed isosorbide mononitrate 30 mg 30 mg PO DAILY esophageal spasms 05/27/20 06/08/24 tablet,extended release 24 hr lorazepam 1 mg tablet 1 mg PO BID PRN Anxiety 05/27/20 06/08/24 lisinopril 20 1 tab PO DAILY 11/01/20 06/08/24 mg-hydrochlorothiazide 12.5 mg tablet morphine 15 mg tablet,extended 15 mg PO Q12H 02/03/21 06/08/24 release nitroglycerin 0.4 mg sublingual 0.4 mg sublingual Q5M PRN Chest 02/03/21 06/08/24 tablet Pain calcium carbonate 600 mg-vitamin 1 tab PO DAILY 03/19/21 06/08/24 D3 20 mcg (800 unit) chewable tablet (Caltrate 600 plus D) pregabalin 100 mg capsule (Lyrica) 100 mg PO BID 05/19/21 06/08/24 aspirin 81 mg tablet,delayed 81 mg PO DAILY 06/26/21 06/08/24 release (Adult Aspirin Regimen) morphine 15 mg immediate release 15 mg PO BID PRN Pain 06/27/21 06/08/24 tablet ondansetron HCl 8 mg tablet 8 mg PO Q8H PRN Nausea 06/27/21 06/08/24 amlodipine 5 mg tablet 5 mg PO DAILY 03/04/22 06/08/24 methimazole 5 mg tablet 5 mg PO .every other day 01/24/24 06/08/24 omega-3 fatty acids 1,000 mg 1,200 mg PO DAILY 01/24/24 06/08/24 capsule (Fish Oil Concentrate) polyethylene glycol 3350 8.5 gram 8.5 g PO DAILY PRN Constipation 01/24/24 06/08/24 oral powder packet Previous Rx's Medication Instructions Recorded omeprazole 40 mg capsule,delayed 40 mg PO DAILY #30 caps 06/22/22 release rosuvastatin 20 mg tablet 20 mg PO DAILY #90 tabs 02/03/24 acetaminophen 325 mg capsule 325 mg PO Q4H PRN fever or pain 04/26/24 #60 caps lactulose 10 gram/15 mL (15 mL) 30 g (45 mL) PO Q2H 24 hours #540 06/26/24 oral solution mL metoclopramide HCl 10 mg tablet 10 mg PO Q6H PRN nausea and 06/26/24 (Reglan) vomiting #20 tabs Allergies Allergy/AdvReac Type Severity Reaction Status Date / Time atorvastatin AdvReac Mild Elevates Verified 06/08/24 09:28 Liver Enzymes Review of Systems 2 Const: Denies: fever(s) or chills Card: Denies: chest pain Resp: Denies: dyspnea GI: Reports: abdominal pain and nausea : Denies: dysuria, urinary frequency or urinary urgency Musc: Denies: neck pain or back pain Skin/Breast: Denies: rash PFSH ED 2 PFSH: Medical History Hyperlipidemia LDL goal <100 Lupus Liver cirrhosis Pain management contract signed Hx of herpes zoster Peripheral arterial disease Claudication of both lower extremities Surgical History History of total abdominal hysterectomy and bilateral salpingo-oophorectomy (~2020) performed by [facility] History of anterior colporrhaphy (~04/25/24) with allograft, mid-urethral sling, cystoscopy performed by Dr. Yancey at [facility] for cystocele and mixed incontinence, mild rectocele. Family History Denies family history of Diabetes CAD (coronary artery disease) Clotting disorder Dementia Hyperlipidemia Chronic kidney disease (CKD) Anesthesia complication Bleeding disorder Family history of premature coronary artery disease Lung disease Cancer Hypertension Social History Smoking and tobacco/nicotine status: current every day tobacco/nicotine user Physical Exam 2 Const: GENERAL APPEARANCE: cooperative ORIENTATION/CONSCIOUSNESS: Yes awake, Yes oriented to person, Yes oriented to place and Yes oriented to time HENMT: COMMON NORMALS: normocephalic, atraumatic and hearing grossly normal bilaterally HEAD & SCALP: normocephalic and atraumatic Resp: COMMON NORMALS: normal respiratory effort, No retractions, No use of accessory muscles and clear to auscultation bilaterally AUSCULTATION: clear to auscultation bilaterally Cardio: COMMON NORMALS: regular rate, regular rhythm and No murmurs present (Cardio) RATE: regular rate RHYTHM: regular rhythm GI: COMMON NORMALS: Soft to palpation and No hepatosplenomegaly present A USCULTATION: Yes normoactive bowel sounds PALPATION: Yes Soft to palpation, No Tenderness to palpation present (GI), No Guarding due to palpation present (GI) and Yes No hepatosplenomegaly present Extremity: COMMON NORMALS: normal to inspection, capillary refill normal, no clubbing, cyanosis or edema, no calf tenderness and no pedal edema Neuro: SENSORIUM/ORIENTATION: Yes oriented to person, Yes oriented to place and Yes oriented to time Skin: COMMON NORMALS: no rashes or lesions noted GENERAL SKIN EXAM: no rashes or lesions noted Course 2 Vital Signs: Vital signs: Vital Signs Temperature 98.0 F 06/26/24 10:28 Pulse Rate 67 06/26/24 12:08 Respiratory Rate 18 06/26/24 10:28 Blood Pressure 136/67 06/26/24 12:08 Pulse Oximetry 97 06/26/24 12:08 Oxygen Delivery Me thod Room Air 06/26/24 10:28 MDM - Nausea/Vomiting/Diarrhea Medical Decision Making Labs and imaging reviewed. No clinically significant findings on her lab work. CT shows fair amount of colonic air and retained stool but no other acute pathologic findings. Discharge patient home she can use Reglan for nausea also give lactulose to use to relieve some of her slow transit issues she said she has not had a bowel movement for days. Completely slow transit issues with the narcotics are contributing to the abdominal pain and cramping. Return if she has further problems. Medical Records I reviewed the patient's medical records. Lab Data I reviewed the patient's lab results. 06/26/24 10:33 06/26/24 10:33 Radiology Impressions Abdomen/Pelvis CT 06/26/24 10:55 IMPRESSION: No acute findings. COMMENTS: Consistent with the [employer]'s Incidental Findings Committee white paper (J Am Marjorie Radiol 2018): Any incidental renal lesion less than 1 cm or classified as too small to characterize, or any incidental cystic renal lesion characterized as simple-appearing, is likely benign. No follow-up imaging is recommended for these lesions per consensus recommendations based on imaging criteria. Laboratory Results WBC 9.39 10^3/uL (3.29-11.43) 06/26/24 10:33 RBC 4.65 10^6/uL (3.85-5.65) 06/26/24 10:33 Hgb 14.70 g/dL (11.27-16.99) 06/26/24 10:33 Hct 43.3 % (36-47) 06/26/24 10:33 MCV 93.1 fl (85-98) 06/26/24 10:33 MCH 31.6 pg (27-33) 06/26/24 10:33 MCHC 33.9 g/dL (30-55) 06/26/24 10:33 RDW 11.9 % (12.1-15.1) L 06/26/24 10:33 Plt Count 184 10^3/cmm (157-399) 06/26/24 10:33 MPV 10.3 fL (7.4-10.4) 06/26/24 10:33 Neut % (Auto) 67.7 % 06/26/24 10:33 Lymph % (Auto) 21.6 % 06/26/24 10:33 [place] % (Auto) 6.3 % 06/26/24 10:33 Eos % (Auto) 3.4 % 06/26/24 10:33 Baso % (Auto) 0.6 % 06/26/24 10:33 Neut # (Auto) 6.35 10^3/uL (1.8-7.7) 06/26/24 10:33 Lymph # (Auto) 2.0 10^3/uL (0.8-4.8) 06/26/24 10:33 [place] # (Auto) 0.6 10^3/uL (0.2-0.9) 06/26/24 10:33 Eos # (Auto) 0.3 10^3/uL (0.0-0.8) 06/26/24 10:33 Baso # (Auto) 0.1 10^3/uL (0.0-0.1) 06/26/24 10:33 Nucleated RBC % (auto) 0 % 06/26/24 10:33 Nucleated RBCs # 0.0 /100WBC 06/26/24 10:33 Sodium 131 mmol/L (136-145) L 06/26/24 10:33 Potassium 3.9 mmol/L (3.5-5.1) 06/26/24 10:33 Chloride 93 mmol/L (98-107) L 06/26/24 10:33 Carbon Dioxide 25 mmol/L (22-29) 06/26/24 10:33 Anion Gap 16.9 (5-19) 06/26/24 10:33 BUN 14 mg/dL (8-23) 06/26/24 10:33 Creatinine 1.0 mg/dL (0.5-0.9) H 06/26/24 10:33 GFR Calculation 55.1 mL/min (90-130) L 06/26/24 10:33 Glucose 146 mg/dL (65-115) H 06/26/24 10:33 Calculated Osmolality 275 mOsm/kg (285-295) L 06/26/24 10:33 Calcium 9.3 mg/dL (8.5-10.5) 06/26/24 10:33 Total Bilirubin 0.5 mg/dL (0.15-1.2) 06/26/24 10:33 AST 16 U/L (0-32) 06/26/24 10:33 ALT < 5 U/L (0-33) 06/26/24 10:33 Alkaline Phosphatase 77 U/L (35-105) 06/26/24 10:33 Total Protein 7.6 g/dL (6.6-8.7) 06/26/24 10:33 Albumin 4.1 g/dL (3.5-5.2) 06/26/24 10:33 Globulin 3.5 g/dL (1.3-4.6) 06/26/24 10:33 Lipase 22 U/L (13-60) 06/26/24 10:33 Urine Color Yellow (Yellow) 06/26/24 10:54 Urine Appearance Clear (CLEAR) 06/26/24 10:54 Urine pH 6.0 (5-7) 06/26/24 10:54 Ur Specific [place] 1.008 (1.005-1.030) 06/26/24 10:54 Urine Protein Negative (Negative) 06/26/24 10:54 Urine Glucose (UA) Negative (Normal) 06/26/24 10:54 Urine Ketones Negative (Negative) 06/26/24 10:54 Urine Blood Non-haemolysed trace (Negative) 06/26/24 10:54 Urine Nitrate Negative (Negative) 06/26/24 10:54 Urine Bilirubin Negative (Negative) 06/26/24 10:54 Urine Urobilinogen 1.0 mg/dL (Negative) 06/26/24 10:54 Ur Leukocyte Esterase Negative (Negative) 06/26/24 10:54 Urine RBC 0-2 /hpf (0-2) 06/26/24 10:54 Urine WBC 0-5 /hpf (0-5) 06/26/24 10:54 Ur Squamous Epith Cells 0-5 /hpf (0-5) 06/26/24 10:54 Amorphous Sediment Not Reportable 06/26/24 10:54 Urine Bacteria None seen /hpf (NONE) 06/26/24 10:54 Hyaline Casts 0-4 /lpf H 06/26/24 10:54 All radiology interpretation(s) finalized by discharge Discharge Plan Discharge Patient Disposition: Home Clinical Impression: Abdominal pain, Constipation by delayed colonic transit Condition: Stable Prescriptions: New Reglan 10 mg tablet 10 mg PO Q6H PRN (Reason: nausea and vomiting) Qty: 20 0RF lactulose 10 gram/15 mL (15 mL) solution 30 g PO Q2H 1 Days Qty: 540 0RF Rx Instructions: until desired laxative effect No Action lisinopril-hydrochlorothiazide 20-12.5 mg tablet 1 tab PO DAILY amlodipine 5 mg tablet 5 mg PO DAILY isosorbide mononitrate 30 mg tablet extended release 24 hr 30 mg PO DAILY lorazepam 1 mg tablet 1 mg PO BID PRN (Reason: Anxiety) Rx Instructions: take 1-2 tabs every 12 hours for anxiety polyethylene glycol 3350 8.5 gram powder in packet 8.5 g PO DAILY PRN (Reason: Constipation) Caltrate 600 plus D 600 mg (1,500 mg)-800 unit tablet,chewable 1 tab PO DAILY aspirin [Adult Aspirin Regimen] 81 mg tablet,delayed release (DR/EC) 81 mg PO DAILY methimazole 5 mg tablet 5 mg PO .every other day omega-3 fatty acids [Fish Oil Concentrate] 1,000 mg capsule 1,200 mg PO DAILY omeprazole 40 mg capsule,delayed release(DR/EC) 40 mg PO DAILY Qty: 30 2RF rosuvastatin 20 mg tablet 20 mg PO DAILY Qty: 90 3RF ondansetron HCl 8 mg Tablet 8 mg PO Q8H PRN (Reason: Nausea) morphine 15 mg tablet 15 mg PO BID PRN (Reason: Pain) Rx Instructions: IR as needed for break through pain nitroglycerin 0.4 mg Tablet, Sublingual 0.4 mg SUBLINGUAL Q5M PRN (Reason: Chest Pain) morphine 15 mg Tablet Extended Release 15 mg PO Q12H pregabalin [Lyrica] 100 mg capsule 100 mg PO BID acetaminophen 325 mg capsule 325 mg PO Q4H PRN (Reason: fever or pain) Qty: 60 0RF Discharge Orders: Discharge ED (Routine); Ordered 06/26/24 Ordered By: Ji Christian Discharge Diet: Full LIquid Discharge Activity: Increase activity as tolerated Patient Instructions: Abdominal Pain (ED), Opioid Safety, Pain Management Activity Restrictions/Additional Instructions: Thank you for choosing [facility] for your healthcare needs today. It is very important that you follow up as instructed or that you return to the Emergency Department should you have concerns or if your condition changes or worsens in any way. You were seen in the emergency room today with complaint of abdominal pain. Laboratory test did not show any clinically significant abnormalities and CT abdomen showed some mild constipation and air but no acute findings. Given your complaints of no bowel movement for several days and history with some of your medications immediately discomfort is related to constipation. You can use Reglan for nausea. Also gave you lactulose to use 1 dose every 2 hours until desired results achieved. Follow-up with your primary care doctor Coding Level of Care Code ED Overlock Elastic Attacher for Issa Ji
[2024-06-26 10:58] LABS: Alanine Aminotransferase < 5 U/L (0-33); Albumin Level 4.1 g/dL (3.5-5.2); Alkaline Phosphatase 77 U/L (35-105); Anion Gap 16.9 (5-19); Aspartate Amino Transferase 16 U/L (0-32); Blood Urea Nitrogen 14 mg/dL (8-23); Calcium 9.3 mg/dL (8.5-10.5); Carbon Dioxide 25 mmol/L (22-29); Chloride 93 mmol/L (98-107); Globulin 3.5 g/dL (1.3-4.6); Glomerular Filtration Rate 55.1 mL/min (90-130); Glucose 146 mg/dL (65-115); Osmolality Calculated 275 mOsm/kg (285-295); Potassium 3.9 mmol/L (3.5-5.1); Sodium 131 mmol/L (136-145); Total Bilirubin 0.5 mg/dL (0.15-1.2); Total Protein 7.6 g/dL (6.6-8.7)
[2024-06-26 10:59] LABS: Charge for UA Resulting for Rev
[2024-06-26 11:01] LABS: Bilirubin Urine Negative (Negative); Blood Urine Non-haemolysed trace (Negative); Glucose Urine UA Negative (Normal); Ketones Urine Negative (Negative); Leukocyte Esterase Urine Negative (Negative); Nitrate Urine Negative (Negative); Protein Urine Negative (Negative); Specific Gravity, Urine 1.008 (1.005-1.030); Urine Appearance Clear (CLEAR); Urine Color Yellow (Yellow)
[2024-06-26 11:06] LABS: Bacteria Urine None Seen /hpf; Hyaline Casts Urine 0-4 /lpf; RBC Urine 0-2 /hpf (0-2); Squamous Epithelial Cell Urine 0-5 /hpf (0-5); WBC Urine 0-5 /hpf (0-5)
[2024-06-26 11:11] LABS: Lipase 22 U/L (13-60)
[2024-06-26] MEDS: iohexol 350 mg/mL 500 mL Btl (per mL) IV (11:14)
[2024-06-26 11:16] VITALS: BP 159/82
[2024-06-26 12:07] VITALS: BP 136/67; PULSE 67; O2SAT 97
[2024-06-26 12:08] VITALS: BP 136/67; PULSE 67; O2SAT 97
== END 2024-06-26 12:09 | disposition home or self-care (01) ==
PROVIDERS: Emergency Provider Family Medicine
DX: K59.01 Slow transit constipation (principal); Z79.82 Long term (current) use of aspirin; I10 Essential (primary) hypertension; Z72.0 Tobacco use; E78.5 Hyperlipidemia, unspecified; M32.9 Systemic lupus erythematosus, unspecified
CPT/HCPCS: 74177; 80053; 81003; 81015; 83690; 85025; 96361; 96374; 99285; J2405; J7030

== ENCOUNTER → 2024-07-06 14:02 | Outpatient (BNVA) | payer MEDICARE, SELFPAY | PROVIDERS: Visit Provider Internal Medicine Rheumatology | DX: M32.9 Systemic lupus erythematosus, unspecified (principal); L95.9 Vasculitis limited to the skin, unspecified; M19.90 Unspecified osteoarthritis, unspecified site; K59.00 Constipation, unspecified; Z79.899 Other long term (current) drug therapy; Z71.85 Encounter for immunization safety counseling; Z11.1 Encounter for screening for respiratory tuberculosis; Z11.59 Encounter for screening for other viral diseases | CPT/HCPCS: 99215 ==

== ENCOUNTER 2024-08-08 12:55 | Outpatient (CLI) | payer MEDICARE, SELFPAY ==
[2024-08-08 13:19] LABS: Basophils # 0.1 10^3/uL (0.0-0.1); Basophils % 0.6 %; Eosinophils # 0.1 10^3/uL (0.0-0.8); Eosinophils % 0.8 %; Hematocrit 44.3 % (36-47); Lymphocytes # 1.6 10^3/uL (0.8-4.8); Mean Corpuscular HGB Conc 32.3 g/dL (30-55); Mean Corpuscular Hemoglobin 31.5 pg (27-33); Mean Corpuscular Volume 97.6 fl (85-98); Mean Platelet Volume 10.8 fL (7.4-10.4); Monocytes # 0.4 10^3/uL (0.2-0.9); Monocytes % 3.5 %; Neutrophils # 7.76 10^3/uL (1.8-7.7); Neutrophils % 78.7 %; Nucleated Red Blood Cells % 0 %; Platelet Count 148 10^3/cmm (157-399); Red Blood Count 4.54 10^6/uL (3.85-5.65); Red Cell Distribution Width 12.6 % (12.1-15.1); White Blood Count 9.87 10^3/uL (3.29-11.43)
[2024-08-08 13:25] LABS: Erythrocyte Sedimentation Rate 7 mm/hr (0-15)
[2024-08-08 13:37] LABS: Alanine Aminotransferase 6 U/L (0-33); Albumin Level 4.1 g/dL (3.5-5.2); Alkaline Phosphatase 69 U/L (35-105); Aspartate Amino Transferase 18 U/L (0-32); C Reactive Protein 3.4 mg/L (0.0-4.9); Globulin 3.2 g/dL (1.3-4.6); Glomerular Filtration Rate 44.7 mL/min (90-130); Total Bilirubin 0.3 mg/dL (0.15-1.2); Total Protein 7.3 g/dL (6.6-8.7)
== END 2024-08-08 12:56 | disposition home or self-care (01) ==
LOC: LAB 12:56
PROVIDERS: Visit Provider Internal Medicine Rheumatology
DX: Z79.899 Other long term (current) drug therapy (principal)
CPT/HCPCS: 36415; 80076; 82565; 85025; 85651; 86140

== ENCOUNTER 2024-09-08 09:20 | Emergency (ER) | payer MEDICARE, SELFPAY ==
[2024-09-08 09:54] VITALS: BP 165/66; PULSE 72; RESP 20; TEMP 36.6; O2SAT 92; BMI 20.1
[2024-09-08 11:20] VITALS: BP 156/82; PULSE 93; RESP 20; O2SAT 94
[2024-09-08] MEDS: sodium chloride 0.9% 1,000 ML 999 ML IV (11:25)
--- NOTE | 2024-09-08 11:25 | ED_ITS ---
HPI - Nausea/Vomiting/Diarrhea 2 General: Chief complaint: Nausea/Vomiting/Diarrhea Stated complaint: nauesa and high BP Time Seen by Provider: 09/08/24 11:12 History of Present Illness: Patient presents to the ER with complaints of nausea vomiting and mild abdominal pain. She said this been going on for quite some time she came here in June and was given Reglan on an outpatient basis and she said it worked fairly good but then it started back up again. Patient has appointment with a GI doc in [place] on in November but she has appointment with her PCP coming up earlier this month to talk about getting her a quicker appointment. Related Data Home Medications Medication Instructions Recorded Confirmed isosorbide mononitrate 30 mg 30 mg PO DAILY esophageal spasms 05/27/20 09/08/24 tablet,extended release 24 hr lorazepam 1 mg tablet 1 mg PO BID PRN Anxiety 05/27/20 09/08/24 lisinopril 20 1 tab PO DAILY 11/01/20 09/08/24 mg-hydrochlorothiazide 12.5 mg tablet morphine 15 mg tablet,extended 15 mg PO Q12H 02/03/21 09/08/24 release nitroglycerin 0.4 mg sublingual 0.4 mg sublingual Q5M PRN Chest 02/03/21 09/08/24 tablet Pain calcium 600 mg (as carbonate)-vit 1 tab PO DAILY 03/19/21 09/08/24 D3 20 mcg (800 unit) chewable tablet (Caltrate plus D) pregabalin 100 mg capsule (Lyrica) 100 mg PO BID 05/19/21 09/08/24 aspirin 81 mg tablet,delayed 81 mg PO DAILY 06/26/21 09/08/24 release (Adult Aspirin Regimen) morphine 15 mg immediate release 15 mg PO BID PRN Pain 06/27/21 09/08/24 tablet ondansetron HCl 8 mg tablet 8 mg PO Q8H PRN Nausea 06/27/21 09/08/24 amlodipine 5 mg tablet 5 mg PO DAILY 03/04/22 09/08/24 methimazole 5 mg tablet 5 mg PO .every other day 01/24/24 09/08/24 naldemedine 0.2 mg tablet 0.2 mg PO DAILY 09/08/24 09/08/24 (Symproic) omega 0-bri-lfi-fish oil 900 1 cap PO DAILY 09/08/24 09/08/24 mg-1,400 mg capsule,delayed release sennosides 8.6 mg tablet (Senokot) 8.6 - 17.2 mg PO BID PRN 09/08/24 09/08/24 Constipation Previous Rx's Medication Instructions Recorded omeprazole 40 mg capsule,delayed 40 mg PO DAILY #30 caps 06/22/22 release rosuvastatin 20 mg tablet 20 mg PO DAILY #90 tabs 02/03/24 metoclopramide HCl 10 mg tablet 10 mg PO Q6H PRN nausea and 06/26/24 (Reglan) vomiting #20 tabs leflunomide 20 mg tablet 20 mg PO DAILY #30 tabs 07/06/24 prednisone 5 mg tablet 5 mg PO DAILY #90 tabs 07/06/24 metoclopramide HCl 10 mg tablet 10 mg PO Q6H PRN nausea and 09/08/24 (Reglan) vomiting #20 tabs Allergies Allergy/AdvReac Type Severity Reaction Status Date / Time atorvastatin AdvReac Mild Elevates Verified 09/08/24 09:59 Liver Enzymes Review of Systems 2 General: Reports: 10 or more systems reviewed and unremarkable except in HPI and below PFSH ED 2 PFSH: Medical History Immunization counseling High risk medication use Inflammatory arthritis Cutaneous vasculitis SLE (systemic lupus erythematosus related syndrome) Hyperlipidemia LDL goal <100 Lupus Liver cirrhosis Pain management contract signed Hx of herpes zoster Peripheral arterial disease Claudication of both lower extremities Surgical History History of total abdominal hysterectomy and bilateral salpingo-oophorectomy (~2020) performed by [facility] History of anterior colporrhaphy (~04/25/24) with allograft, mid-urethral sling, cystoscopy performed by Dr. Yancey at [facility] for cystocele and mixed incontinence, mild rectocele. Family History Denies family history of Diabetes CAD (coronary artery disease) Clotting disorder Dementia Hyperlipidemia Chronic kidney disease (CKD) Anesthesia complication Bleeding disorder Family history of premature coronary artery disease Lung disease Cancer Hypertension Social History Smoking and tobacco/nicotine status: current every day tobacco/nicotine user cigarettes Packs smoked per day: 1 Years cigarettes smoked: 40 Physical Exam 2 Const: COMMON NORMALS: no acute distress, average body habitus, patient oriented x3, no limitations, healthy appearing, alert and well nourished HENMT: COMMON NORMALS: normocephalic, hearing grossly normal bilaterally, external ears normal, Normal external nose present and moist oral mucous membranes HEAD & SCALP: normocephalic NOSE: Normal external nose present EXTERNAL EAR: Yes external ears normal Neck/C-Spine: COMMON NORMALS: no JVD Chest: COMMONS NORMALS: normal inspection of the chest and normal palpation of entire chest wall Resp: COMMON NORMALS: normal respiratory effort, No use of accessory muscles and clear to auscultation bilaterally AUSCULTATION: clear to auscultation bilaterally Cardio: COMMON NORMALS: no JVD, regular rate, regular rhythm, S1 normal heart sound present, S2 normal heart sound present, No gallops present (Cardio), No clicks present (Cardio), No murmurs present (Cardio) and No rub (Cardio) R ATE: regular rate RHYTHM: regular rhythm HEART SOUNDS: S1 normal heart sound present and S2 normal heart sound present GI: COMMON NORMALS: Normal to inspection, nondistended, normoactive bowel sounds present, Soft to palpation, non-tender, No hepatosplenomegaly present and no masses PALPATION: Yes Soft to palpation and Yes No hepatosplenomegaly present Neuro: COMMON NORMALS: patient oriented x3 SENSORIUM/ORIENTATION: Yes alert Course 2 Vital Signs: Vital signs: Vital Signs Temperature 97.9 F 09/08/24 09:54 Pulse Rate 60 09/08/24 13:05 Respiratory Rate 16 09/08/24 13:05 Blood Pressure 130/61 09/08/24 13:05 Pulse Oximetry 94 09/08/24 13:05 Oxygen Delivery Me thod Room Air 09/08/24 13:05 MDM - Nausea/Vomiting/Diarrhea Medical Decision Making Patient lab work was urinalysis that was all essentially unremarkable, patient was given Reglan 10 mg, Zofran 4 mg, 1 L bolus normal saline, patient was tried to drink oral apple juice patient did have success. Patient will be sent home with a prescription for Reglan. Medical Records I reviewed the patient's medical records. Lab Data I reviewed the patient's lab results. 09/08/24 11:22 09/08/24 11:22 Laboratory Results WBC 8.03 10^3/uL (3.29-11.43) 09/08/24 11:22 RBC 4.63 10^6/uL (3.85-5.65) 09/08/24 11:22 Hgb 15.00 g/dL (11.27-16.99) 09/08/24 11:22 Hct 43.5 % (36-47) 09/08/24 11:22 MCV 94.0 fl (85-98) 09/08/24 11:22 MCH 32.4 pg (27-33) 09/08/24 11:22 MCHC 34.5 g/dL (30-55) 09/08/24 11:22 RDW 12.3 % (12.1-15.1) 09/08/24 11:22 Plt Count 174 10^3/cmm (157-399) 09/08/24 11: MPV 10.9 fL (7.4-10.4) H 09/08/24 11:22 Neut % (Auto) 79.5 % 09/08/24 11:22 Lymph % (Auto) 14.6 % 09/08/24 11:22 [place] % (Auto) 4.9 % 09/08/24 11:22 Eos % (Auto) 0.2 % 09/08/24 11:22 Baso % (Auto) 0.6 % 09/08/24 11:22 Neut # (Auto) 6.38 10^3/uL (1.8-7.7) 09/08/24 11:22 Lymph # (Auto) 1.2 10^3/uL (0.8-4.8) 09/08/24 11:22 [place] # (Auto) 0.4 10^3/uL (0.2-0.9) 09/08/24 11:22 Eos # (Auto) 0.0 10^3/uL (0.0-0.8) 09/08/24 11:22 Baso # (Auto) 0.1 10^3/uL (0.0-0.1) 09/08/24 11:22 Nucleated RBC % (auto) 0 % 09/08/24 11:22 Nucleated RBCs # 0.0 /100WBC 09/08/24 11:22 Sodium 136 mmol/L (136-145) 09/08/24 11:22 Potassium 4.5 mmol/L (3.5-5.1) 09/08/24 11:22 Chloride 98 mmol/L (98-107) 09/08/24 11:22 Carbon Dioxide 29 mmol/L (22-29) 09/08/24 11:22 Anion Gap 13.5 (5-19) 09/08/24 11:22 BUN 19 mg/dL (8-23) 09/08/24 11:22 Creatinine 1.0 mg/dL (0.5-0.9) H 09/08/24 11:22 GFR Calculation 55.0 mL/min (90-130) L 09/08/24 11:22 Glucose 129 mg/dL (65-115) H 09/08/24 11:22 Calculated Osmolality 286 mOsm/kg (285-295) 09/08/24 11:22 Calcium 9.5 mg/dL (8.5-10.5) 09/08/24 11:22 Total Bilirubin 0.4 mg/dL (0.15-1.2) 09/08/24 11:22 AST 20 U/L (0-32) 09/08/24 11:22 ALT 8 U/L (0-33) 09/08/24 11:22 Alkaline Phosphatase 68 U/L (35-105) 09/08/24 11:22 Total Protein 7.4 g/dL (6.6-8.7) 09/08/24 11:22 Albumin 4.0 g/dL (3.5-5.2) 09/08/24 11:22 Globulin 3.4 g/dL (1.3-4.6) 09/08/24 11:22 Lipase 21 U/L (13-60) 09/08/24 11:22 Urine Color Yellow (Yellow) 09/08/24 11:00 Urine Appearance Clear (CLEAR) 09/08/24 11:00 Urine pH 6.0 (5-7) 09/08/24 11:00 Ur Specific [place] 1.008 (1.005-1.030) 09/08/24 11:00 Urine Protein Negative (Negative) 09/08/24 11:00 Urine Glucose (UA) Negative (Normal) 09/08/24 11:00 Urine Ketones Negative (Negative) 09/08/24 11:00 Urine Blood Negative (Negative) 09/08/24 11:00 Urine Nitrate Negative (Negative) 09/08/24 11:00 Urine Bilirubin Negative (Negative) 09/08/24 11:00 Urine Urobilinogen 1.0 mg/dL (Negative) 09/08/24 11:00 Ur Leukocyte Esterase Trace (Negative) A 09/08/24 11:00 Urine RBC 0-2 /hpf (0-2) 09/08/24 11:00 Urine WBC 0-5 /hpf (0-5) 09/08/24 11:00 Ur Squamous Epith Cells 0-5 /hpf (0-5) 09/08/24 11:00 Amorphous Sediment Not Reportable 09/08/24 11:00 Urine Bacteria None seen /hpf (NONE) 09/08/24 11:00 Hyaline Casts 0-4 /lpf H 09/08/24 11:00 All radiology interpretation(s) finalized by discharge Discharge Plan Discharge Patient Disposition: Home Clinical Impression: Gastroenteritis Condition: Stable Prescriptions: New metoclopramide HCl [Reglan] 10 mg tablet 10 mg PO Q6H PRN (Reason: nausea and vomiting) Qty: 20 0RF No Action lisinopril-hydrochlorothiazide 20-12.5 mg tablet 1 tab PO DAILY amlodipine 5 mg tablet 5 mg PO DAILY isosorbide mononitrate 30 mg tablet extended release 24 hr 30 mg PO DAILY lorazepam 1 mg tablet 1 mg PO BID PRN (Reason: Anxiety) Rx Instructions: take 1-2 tabs every 12 hours for anxiety Caltrate 600 plus D 600 mg (1,500 mg)-800 unit tablet,chewable 1 tab PO DAILY aspirin [Adult Aspirin Regimen] 81 mg tablet,delayed release (DR/EC) 81 mg PO DAILY methimazole 5 mg tablet 5 mg PO .every other day prednisone 5 mg tablet 5 mg PO DAILY Qty: 90 1RF leflunomide 20 mg tablet 20 mg PO DAILY Qty: 30 4RF omeprazole 40 mg capsule,delayed release(DR/EC) 40 mg PO DAILY Qty: 30 2RF rosuvastatin 20 mg tablet 20 mg PO DAILY Qty: 90 3RF ondansetron HCl 8 mg Tablet 8 mg PO Q8H PRN (Reason: Nausea) morphine 15 mg tablet 15 mg PO BID PRN (Reason: Pain) Rx Instructions: IR as needed for break through pain nitroglycerin 0.4 mg Tablet, Sublingual 0.4 mg SUBLINGUAL Q5M PRN (Reason: Chest Pain) morphine 15 mg Tablet Extended Release 15 mg PO Q12H pregabalin [Lyrica] 100 mg capsule 100 mg PO BID sennosides [Senokot] 8.6 mg Tablet 8.6 - 17.2 mg PO BID PRN (Reason: Constipation) [place] 3 Fish Oil 900-1,400 mg Capsule,Delayed Release(Dr/Ec) 1 cap PO DAILY Symproic 0.2 mg Tablet 0.2 mg PO DAILY metoclopramide HCl [Reglan] 10 mg tablet 10 mg PO Q6H PRN (Reason: nausea and vomiting) Qty: 20 0RF Discharge Orders: Discharge ED (Routine); Ordered 09/08/24 Ordered By: Antonio Donald Patient Instructions: Acute Nausea and Vomiting (ED) Activity Restrictions/Additional Instructions: Thank you for choosing [facility] for your healthcare needs today. Please realize that you were seen in the emergency department and that we are providing you with an emergency medical screening exam and this may not be a complete and all exclusive of all testing and/or medical workup we may need to determine your element or severity of your illness. It is very important that you follow-up as instructed with your primary care provider or specialist for the additional evaluation and to discuss your medical treatment plan. You may return to the emergency department should you have concerns or if your condition changes or worsens in any way. Coding Level of Care Code ED Abap Developer for Issa Ji
[2024-09-08] MEDS: ondansetron 2 mg/ML SDV 2 mL 4 MG IVP (11:26)
[2024-09-08 11:30] VITALS: BP 150/55; PULSE 91; O2SAT 93
[2024-09-08 11:42] LABS: Basophils # 0.1 10^3/uL (0.0-0.1); Basophils % 0.6 %; Eosinophils % 0.2 %; Hematocrit 43.5 % (36-47); Lymphocytes # 1.2 10^3/uL (0.8-4.8); Lymphocytes % 14.6 %; Mean Corpuscular HGB Conc 34.5 g/dL (30-55); Mean Corpuscular Hemoglobin 32.4 pg (27-33); Mean Platelet Volume 10.9 fL (7.4-10.4); Monocytes # 0.4 10^3/uL (0.2-0.9); Monocytes % 4.9 %; Neutrophils # 6.38 10^3/uL (1.8-7.7); Neutrophils % 79.5 %; Nucleated Red Blood Cells % 0 %; Platelet Count 174 10^3/cmm (157-399); Red Blood Count 4.63 10^6/uL (3.85-5.65); Red Cell Distribution Width 12.3 % (12.1-15.1); White Blood Count 8.03 10^3/uL (3.29-11.43)
[2024-09-08 11:53] LABS: Bilirubin Urine Negative (Negative); Blood Urine Negative (Negative); Glucose Urine UA Negative (Normal); Ketones Urine Negative (Negative); Leukocyte Esterase Urine Trace (Negative); Nitrate Urine Negative (Negative); Protein Urine Negative (Negative); Specific Gravity, Urine 1.008 (1.005-1.030); Urine Appearance Clear (CLEAR); Urine Color Yellow (Yellow)
[2024-09-08 11:58] LABS: Add Urine Microscopic? YES; Bacteria Urine None Seen /hpf; Hyaline Casts Urine 0-4 /lpf; RBC Urine 0-2 /hpf (0-2); Squamous Epithelial Cell Urine 0-5 /hpf (0-5); WBC Urine 0-5 /hpf (0-5)
[2024-09-08 11:59] LABS: Alanine Aminotransferase 8 U/L (0-33); Alkaline Phosphatase 68 U/L (35-105); Anion Gap 13.5 (5-19); Aspartate Amino Transferase 20 U/L (0-32); Blood Urea Nitrogen 19 mg/dL (8-23); Calcium 9.5 mg/dL (8.5-10.5); Carbon Dioxide 29 mmol/L (22-29); Chloride 98 mmol/L (98-107); Creatinine Clr Calc Pharmacy 48.8329; Globulin 3.4 g/dL (1.3-4.6); Glucose 129 mg/dL (65-115); Lipase 21 U/L (13-60); Osmolality Calculated 286 mOsm/kg (285-295); Potassium 4.5 mmol/L (3.5-5.1); Sodium 136 mmol/L (136-145); Total Bilirubin 0.4 mg/dL (0.15-1.2); Total Protein 7.4 g/dL (6.6-8.7)
[2024-09-08 12:49] VITALS: BP 178/71; PULSE 74; RESP 19; O2SAT 93
[2024-09-08] MEDS: metoclopramide 5 mg/mL SDV 2 mL 10 MG IVP (13:04)
[2024-09-08 13:05] VITALS: BP 130/61; PULSE 60; RESP 16; O2SAT 94
[2024-09-08 13:20] VITALS: BP 140/68; PULSE 66; RESP 16; O2SAT 94
== END 2024-09-08 13:22 | disposition home or self-care (01) ==
PROVIDERS: Emergency Medicine; Emergency Provider Emergency Medicine
DX: K52.9 Noninfective gastroenteritis and colitis, unspecified (principal); F17.210 Nicotine dependence, cigarettes, uncomplicated; E78.5 Hyperlipidemia, unspecified
CPT/HCPCS: 80053; 81001; 83690; 85025; 96361; 96374; 96375; 99284; J2405; J2765; J7030

== ENCOUNTER → 2024-09-28 14:37 | Outpatient (BNVA) | payer MEDICARE, SELFPAY | PROVIDERS: Visit Provider Internal Medicine Rheumatology | DX: Z79.899 Other long term (current) drug therapy (principal); M32.9 Systemic lupus erythematosus, unspecified; R10.10 Upper abdominal pain, unspecified; R11.2 Nausea with vomiting, unspecified; L95.9 Vasculitis limited to the skin, unspecified; M19.90 Unspecified osteoarthritis, unspecified site; Z71.85 Encounter for immunization safety counseling | CPT/HCPCS: 36415; 80076; 82565; 85025; 85651; 86140; 99214 ==

== ENCOUNTER → 2024-11-27 12:33 | Outpatient (BNVA) | payer MEDICARE, SELFPAY | PROVIDERS: Visit Provider Internal Medicine | DX: I73.9 Peripheral vascular disease, unspecified (principal); E78.5 Hyperlipidemia, unspecified; F17.210 Nicotine dependence, cigarettes, uncomplicated | CPT/HCPCS: 99214 ==

== ENCOUNTER → 2025-01-18 14:11 | Outpatient (BNVA) | payer MEDICARE, SELFPAY | PROVIDERS: PCP Family Medicine; Visit Provider Internal Medicine Rheumatology | DX: M32.9 Systemic lupus erythematosus, unspecified (principal); L95.9 Vasculitis limited to the skin, unspecified; M19.90 Unspecified osteoarthritis, unspecified site; Z79.899 Other long term (current) drug therapy; Z71.85 Encounter for immunization safety counseling | CPT/HCPCS: 36415; 80076; 82565; 85025; 85651; 86140; 99214 ==

== ENCOUNTER 2025-05-26 19:41 | Emergency (ER) | payer MEDICARE, SELFPAY ==
--- OUTSIDE RECORDS SUMMARY | 2025-05-26 19:47 | XMS_ITS | Clinical Summary ---
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 0 Active ondansetron (ZOFRAN ODT) 8 mg Tablet, Rapid Dissolve Take 8 mg by mouth. 0 Active lisinopril-hydro CHLOROthiazide (ZESTORETIC) 20-12.5 mg tablet Take 1 Tablet by mouth. 0 Active atorvastatin (LIPITOR) 80 mg tablet TK 1 T PO D. REPLACES SIMVASTATIN 0 Active amLODIPine (NORVASC) 10 mg tablet one (1) time a day 0 Active LORazepam (ATIVAN) 1 mg tablet LORazepam 1 MG Oral Tablet; 1 -2 tabs every 12 hours; Qty: 0 (Active) 0 Active nitroglycerin (NITROSTAT) 0.4 mg Tablet, Sublingual Nitrostat 0.4 MG Sublingual Tablet Sublingual; PLACE 1 TABLET NEEDED PRN chest pain under tongue q 5 min x 3 - give 1 bottle; Qty: 25; Ref: 3 (Active) 0 Active morphine (MS IR) 15 mg tablet 0 Active polyethylene glycol 3350 (MIRALAX) 17 gram/dose Powder MIX 1 CAPFUL WITH 8 OUNCES OF LIQUID AND DRINK DAILY 0 Active isosorbide mononitrate (IMDUR) 30 mg Extended Release 24 hour tablet one (1) time a day 0 Active diphenhydrAMINE (BENADRYL) 25 mg tablet Take 25 mg by mouth nightly as needed for Insomnia. 7 Active methIMAzole (TAPAZOLE) 10 mg tabletIndication s:Chronic right shoulder pain,Adhesive capsulitis of right shoulder Take 5 mg by mouth daily . 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 Gender Identity Not on file Sexual Orientation Not on file Last Filed Vital Signs Vital Sign Reading Time Taken Comments Blood Pressure 166/71 06/04/2020 1:45 PM CDT Pulse 72 06/04/2020 1:45 PM CDT Temperature 36.2 C (97.2 F) 04/01/2017 1:15 PM CDT Respiratory Rate 12 04/01/2017 1:15 PM CDT Oxygen Saturation - - Inhaled Oxygen Concentration - - Weight 63.5 kg (140 lb) 06/04/2020 1:45 PM CDT Height 167.6 cm (5' 6 ) 06/04/2020 1:45 PM CDT Body Mass Index 22.6 06/04/2020 1:45 PM CDT Plan of Treatment Health Maintenance Due Date Last Done Comments DTAP/TDAP/TD VACCINES (1 - Tdap) 1974 BREAST CANCER SCREENING 1995 COLORECTAL SCREENING 2000 Colorectal Cancer Screening 2000 FIT-DNA Q 3 years 2000 FIT/FOBT Q 1 year 2000 Flex Sig/CT Colonography Q 5 years 2000 PNEUMOCOCCAL VACCINE 50+ YEARS (1 of 1 - PCV) 08/17/20 05 ZOSTER VACCINE (1 of 2) 2005 OSTEOPOROSIS SCREENING 2020 INFLUENZA VACCINE (#1) 2025 RSV VACCINE (60+ or ) (1 - 1-dose 75+ series) 2030 Care Teams Chlorobutadiene Scrubber Operator Relationship Specialty Start Date End Date Mhtm, External Provider PCP - General 03/29/17
--- OUTSIDE RECORDS SUMMARY | 2025-05-26 19:47 | XMS_ITS | Clinical Summary ---
Author Organization [facility] Address [address] [place] [address] Phone Care Team Providers Care Flue Blower Name Role Phone Mhtm, External Provider Primary Care Provider Un available Allergies No known active allergies Medications methIMAzole (TAPAZOLE, NORTHYX) 10 mg tabletIndication s:Chronic right shoulder pain,Adhesive capsulitis of right shoulder Take 5 mg by mouth daily . Active diphenhydrAMINE (BENADRYL) 25 mg tablet Take 25 mg by mouth nightly as needed for Insomnia. Active pregabalin (LYRICA) 100 mg Capsule TK 1 C PO BID 0 Active amLODIPine (NORVASC) 10 mg tablet one (1) time a day Active atorvastatin (LIPITOR) 80 mg tablet TK 1 T PO D. REPLACES SIMVASTATIN 0 Active ondansetron (ZOFRAN ODT) 8 mg Tablet, Rapid Dissolve Take 8 mg by mouth. Active polyethylene glycol 3350 (MIRALAX) 17 gram/dose Powder MIX 1 CAPFUL WITH 8 OUNCES OF LIQUID AND DRINK DAILY 0 Active isosorbide mononitrate (IMDUR) 30 mg Extended Release 24 hour tablet one (1) time a day Active lidocaine (LIDODERM) 5 % Adhesive Patch, Medicated Apply 1 Patch to skin as directed every 12 hours. Active lisinopril-hydro CHLOROthiazide (ZESTORETIC) 20-12.5 mg tablet Take 1 Tablet by mouth. Active LORazepam (ATIVAN) 1 mg tablet LORazepam 1 MG Oral Tablet; 1 -2 tabs every 12 hours; Qty: 0 (Active) Active morphine (MS IR) 15 mg tablet 0 Active nitroglycerin (NITROSTAT) 0.4 mg Tablet, Sublingual Nitrostat 0.4 MG Sublingual Tablet Sublingual; PLACE 1 TABLET NEEDED PRN chest pain under tongue q 5 min x 3 - give 1 bottle; Qty: 25; Ref: 3 (Active) Active Active Problems Problem Noted Date Diagnosed Date S/P arthroscopy of shoulder 05/05/2017 Chronic right shoulder pain 03/17/2017 Adhesive capsulitis of right shoulder 03/17/2017 Social History Tobacco Use Types Packs/Day Years Used Date Smoking Tobacco: Every Day Cigarettes 1 30 Smokeless Tobacco: Never Alcohol Use Standard Drinks/Week Comments No 0 (1 standard drink = 0.6 oz pur e alcohol) Comments Unknown Sex and Gender Information Value Date Recorded Sex Assigned at Not on file Legal Sex Female 1:50 PM CDT Gender Identity Not on file Sexual Orientation Not on file Last Filed Vital Signs Vital Sign Reading Time Taken Comments Blood Pressure 166/71 06/04/2020 1:45 PM CDT Pulse 72 06/04/2020 1:45 PM CDT Temperature 36.2 C (97.2 F) 04/01/2017 1:15 PM CDT Respiratory Rate 12 04/01/2017 1:15 PM CDT Oxygen Saturation 94% 04/01/2017 1:15 PM CDT Inhaled Oxygen Concentration - - Weight 63.5 kg (140 lb) 06/04/2020 1:45 PM CDT Height 167.6 cm (5' 6 ) 06/04/2020 1:45 PM CDT Body Mass Index 22.6 06/04/2020 1:45 PM CDT Plan of Treatment Health Maintenance Due Date Last Done Comments DTAP/TDAP/TD VACCINES (1 - Tdap) 1974 PNEUMOCOCCAL VACCINE 50+ YEARS (1 of 2 - PCV) 08/17/19 74 BREAST CANCER SCREENING 1995 COLORECTAL SCREENING 2000 Colorectal Cancer Screening 2000 FIT-DNA Q 3 years 2000 FIT/FOBT Q 1 year 2000 Flex Sig/CT Colonography Q 5 years 2000 ZOSTER VACCINE (1 of 2) 2005 OSTEOPOROSIS SCREENING 2020 INFLUENZA VACCINE (#1) 2025 RSV VACCINE (60+ or ) (1 - 1-dose 75+ series) [address] [place] [address] [address] [place] [address] DUAL COMPLETE Advance Directives For more information, please contact: [phone] * Full Code (Latest Code Status on File) Date Activated Date Inactivated Comments 04/01/2017 9:01 AM 04/01/2017 4:11 PM Care Teams Flue Blower Relationship Specialty Start Date End Date Mhtm, External Provider PCP - General 03/29/17
[2025-05-26 19:55] VITALS: BP 94/56; PULSE 58; RESP 22; TEMP 36.6; O2SAT 96; BMI 19.8
[2025-05-26] MEDS: metoclopramide 5 mg/mL SDV 2 mL 10 MG IVP (20:10)
--- NOTE | 2025-05-26 20:12 | CTR_ITS ---
PROCEDURE INFORMATION: Exam: CT Chest With Contrast; Diagnostic Exam date and time: 05/26/2025 8:41 PM Age: 69 years old Clinical indication: Injury or trauma; Generalized; Blunt trauma (contusions or hematomas); Prior surgery; Surgery date: 6+ months; Surgery type: Hysterectomy; Fall approx 4 foot off of bar stool. Patient focal C/O of left lower chest wall, low back, and left hip pain. ; Additional info: Fall/back and abdominal pain/vomiting TECHNIQUE: Imaging protocol: Diagnostic computed tomography of the chest with contrast. Radiation optimization: All CT scans at this facility use at least one of these dose optimization techniques: automated exposure control; mA and/or kV adjustment per patient size (includes targeted exams where dose is matched to clinical indication); or iterative reconstruction. Contrast material: OMNI 350; Contrast volume: 100 ml; Contrast route: INTRAVENOUS (IV); COMPARISON: CT lung screening [id number] 12/01/2023 9:21 AM RADIATION DOSE METRICS: Total DLP (mGy-cm): 1441.66 FINDINGS: Lungs: There are a few scars in the upper lobes. No pulmonary mass or pneumonia. Pleural spaces: Unremarkable. No pneumothorax. No pleural effusion. Heart: Unremarkable. No cardiomegaly. No pericardial effusion. Mediastinal space: There is some pulsation artifacts in the mediastinum. The aorta is normal in size and is atherosclerotic. Lymph nodes: Unremarkable. No enlarged lymph nodes. Vasculature: Calcified plaque in the origin of all arch vessels especially the left subclavian artery. The central pulmonary arteries are patent. Bones/joints: There is an acute 10% superior endplate wedge fracture of the T12 vertebral body. No retropulsion. The ribs are intact. The sternum is intact. Soft tissues: Unremarkable. PROCEDURE INFORMATION: Exam: CT Abdomen And Pelvis With Contrast Exam date and time: 05/26/2025 8:41 PM Age: 69 years old Clinical indication: Injury or trauma; Generalized; Blunt trauma (contusions or hematomas); Prior surgery; Surgery date: 6+ months; Surgery type: Hysterectomy; Fall approx 4 foot off of bar stool. Patient focal C/O of left lower chest wall, low back, and left hip pain. ; Additional info: Fall/back and abdominal pain/vomiting TECHNIQUE: Imaging protocol: Computed tomography of the abdomen and pelvis with contrast. Radiation optimization: All CT scans at this facility use at least one of these dose optimization techniques: automated exposure control; mA and/or kV adjustment per patient size (includes targeted exams where dose is matched to clinical indication); or iterative reconstruction. Contrast material: OMNI 350; Contrast volume: 100 ml; Contrast route: INTRAVENOUS (IV); COMPARISON: CT abdomen pelvis w con* [id number] 06/26/2024 11:09 AM RADIATION DOSE METRICS: Total DLP (mGy-cm): 1441.66 FINDINGS: Liver: The left hepatic lobe is hypertrophied and the hepatic surface is nodular indicating underlying cirrhosis. Gallbladder and biliary ducts: Normal. No calcified stones. No ductal dilation. Pancreas: Normal. No ductal dilation. Spleen: Normal. No splenomegaly. Adrenal glands: Normal. No mass. Kidneys and ureters: Numerous bilateral renal cysts measure up to 3 cm on the right. Stomach and bowel: Increased fecal loading throughout the colon. No generalized obstruction. Appendix: No evidence of appendicitis. Intraperitoneal space: Unremarkable. No free air. No significant fluid collection. Vasculature: Calcifications in both renal krystal are most likely vascular in origin. Heavy calcified and soft plaque in the abdominal aorta and iliac arteries. Chronic celiac artery stenosis. Chronic heavy calcified plaque in both renal arteries likely producing bilateral stenosis. Lymph nodes: Unremarkable. No enlarged lymph nodes. Urinary bladder: Unremarkable as visualized. Reproductive: The uterus is absent and neither ovary is seen. Bones/joints: Unremarkable. No acute fracture. Soft tissues: Unremarkable. CT/CT chest abdpel w/*[id number] IMPRESSION: 1. Acute 10% T12 superior endplate fracture. No retropulsion or subluxation 2. Atherosclerosis. IMPRESSION: 1. No acute abdominopelvic findings. 2. Liver cirrhosis. 3. Extensive atherosclerosis. COMMENTS: Consistent with the [employer]'s Incidental Findings Committee white paper (J Am Marjorie Radiol 2018): Any incidental renal lesion less than 1 cm or classified as too small to characterize, or any incidental cystic renal lesion characterized as simple-appearing, is likely benign. No follow-up imaging is recommended for these lesions per consensus recommendations based on imaging criteria.
--- NOTE | 2025-05-26 20:13 | CTR_ITS ---
PROCEDURE INFORMATION: Exam: CT Head Without Contrast Exam date and time: 05/26/2025 8:36 PM Age: 69 years old Clinical indication: Injury or trauma; Blunt trauma (contusions or hematomas); Fall approx 4 foot off of bar stool. Patient focal C/O of left lower chest wall, low back, and left hip pain. TECHNIQUE: Imaging protocol: Computed tomography of the head without contrast. Radiation optimization: All CT scans at this facility use at least one of these dose optimization techniques: automated exposure control; mA and/or kV adjustment per patient size (includes targeted exams where dose is matched to clinical indication); or iterative reconstruction. COMPARISON: CT head wo con* [id number] 07/01/2021 5:56 PM RADIATION DOSE METRICS: Total DLP (mGy-cm): 974.88 FINDINGS: Brain: There is mild cortical atrophy. Low-density changes in the white matter are consistent with nonspecific small vessel chronic ischemic change. There is no intracranial mass, hemorrhage or edema. Cerebral ventricles: No ventriculomegaly. Paranasal sinuses: Visualized sinuses are unremarkable. No fluid levels. Mastoid air cells: Visualized mastoid air cells are well aerated. Bones: Unremarkable. No acute fracture. Soft tissues: Unremarkable. CT/CT head wo con* [id number] IMPRESSION: No acute intracranial finding.
--- NOTE | 2025-05-26 20:13 | CTR_ITS ---
PROCEDURE INFORMATION: Exam: CT Cervical Spine Without Contrast Exam date and time: 05/26/2025 8:38 PM Age: 69 years old Clinical indication: Injury or trauma; Blunt trauma; Fall approx 4 foot off of bar stool. Patient focal C/O of left lower chest wall, low back, and left hip pain. TECHNIQUE: Imaging protocol: Computed tomography of the cervical spine without contrast. Radiation optimization: All CT scans at this facility use at least one of these dose optimization techniques: automated exposure control; mA and/or kV adjustment per patient size (includes targeted exams where dose is matched to clinical indication); or iterative reconstruction. COMPARISON: CT angio neck [id number] 12/22/2023 10:41 AM RADIATION DOSE METRICS: Total DLP (mGy-cm): 310.77 FINDINGS: Bones: No acute fracture. Normal alignment. No significant disc bulge or herniation. No severe spinal canal stenosis. No significant neural foraminal narrowing. Lungs: Lung apices are normal. Soft tissues: Unremarkable. CT/CT cervical spin wo con* [id number] IMPRESSION: No acute cervical spine fracture.
[2025-05-26 20:21] LABS: Hematocrit 39.8 % (36-47); Hemoglobin 13.30 g/dL (11.27-16.99); Mean Corpuscular HGB Conc 33.4 g/dL (30-55); Mean Corpuscular Hemoglobin 31.7 pg (27-33); Mean Corpuscular Volume 95.0 fl (85-98); Nucleated Red Blood Cells % 0 %; Platelet Count 197 10^3/cmm (157-399); Red Blood Count 4.19 10^6/uL (3.85-5.65); White Blood Count 15.27 10^3/uL (3.29-11.43)
--- NOTE | 2025-05-26 20:30 | ED_ITS ---
Documented by User: Gabriele Avalos MD 05/27/25 05:44 HPI - Fall 2 General: Chief Complaint: Fall Stated Complaint: fall, back injuryn/v/d Time Seen by Provider: 05/26/25 19:55 Related Data Home Medications ?Medication ?Instructions ?Recorded ?Confirmed isosorbide mononitrate 30 mg 30 mg PO DAILY esophageal spasms 05/27/20 01/18/25 tablet,extended release 24 hr lorazepam 1 mg tablet 1 mg PO BID PRN Anxiety 08/01/1101/18/25 lisinopril 20 1 tab PO DAILY 11/01/20 03/12 01/25 mg-hydrochlorothiazide 12.5 mg tablet morphine 15 mg tablet,extended 15 mg PO Q12H 02/03/21 01/18/25 release nitroglycerin 0.4 mg sublingual 0.4 mg sublingual Q5M PRN Chest 02/03/21 01/18/25 tablet Pain calcium 600 mg (as carbonate)-vit 1 tab PO DAILY 03/1901/18/25 D3 20 mcg (800 unit) chewable tablet (Caltrate plus D) pregabalin 100 mg capsule (Lyrica) 100 mg PO BID 05/1901/18/25 aspirin 81 mg tablet,delayed 81 mg PO DAILY 06/26/21 0 01/18/25 release (Adult Aspirin Regimen) morphine 15 mg immediate release 15 mg PO BID PRN Pain 06/27/21 01/18/25 tablet ondansetron HCl 8 mg tablet 8 mg PO Q8H PRN Nausea 01/1201/18/25 methimazole 5 mg tablet 5 mg PO .every other day 11/1701/18/25 naldemedine 0.2 mg tablet 0.2 mg PO DAILY 09/08/24 (Symproic) omega 3-wpv-ryb-fish oil 900 1 cap PO DAILY 09/08/24 0 01/18/25 mg-1,400 mg capsule,delayed release sennosides 8.6 mg tablet (Senokot) 8.6 - 17.2 mg PO BI D PRN 09/08/24 01/18/25 Constipation Previous Rx's ?Medication ?Instructions ?Recorded omeprazole 40 mg capsule,delayed 40 mg PO DAILY #30 ca ps 06/22/22 release rosuvastatin 20 mg tablet 20 mg PO DAILY #90 tabs 01/23 11/17 metoclopramide HCl 10 mg tablet 10 mg PO Q6H PRN nause a and 06/26/24 (Reglan) vomiting #20 tabs metoclopramide HCl 10 mg tablet 10 mg PO Q6H PRN nause a and 09/08/24 (Reglan) vomiting #20 tabs leflunomide 20 mg tablet 20 mg PO DAILY #90 tabs 03/17 amlodipine 10 mg tablet 10 mg PO DAILY #90 tabs 01/16 prednisone 2.5 mg tablet 2.5 mg PO DAILY #90 tabs Allergies Allergy/AdvReac Type Severity Reaction Status Date / Time atorvastatin AdvReac Mild Elevates Verified 01/18/25 15:09 Liver Enzymes PFSH ED 2 PFSH: Medical History Immunization counseling High risk medication use Inflammatory arthritis Cutaneous vasculitis SLE (systemic lupus erythematosus related syndrome) Hyperlipidemia LDL goal <100 Lupus Liver cirrhosis Pain management contract signed Hx of herpes zoster Peripheral arterial disease Claudication of both lower extremities Surgical History History of total abdominal hysterectomy and bilateral salpingo-oophorectomy (~2020) performed by [facility] History of anterior colporrhaphy (~04/25/24) with allograft, mid-urethral sling, cystoscopy performed by Dr. Yancey at [facility] for cystocele and mixed incontinence, mild rectocele. Family History Denies family history of Diabetes CAD (coronary artery disease) Clotting disorder Dementia Hyperlipidemia Chronic kidney disease (CKD) Anesthesia complication Bleeding disorder Family history of premature coronary artery disease Lung disease Cancer Hypertension Social History Smoking and tobacco/nicotine status: current every day tobacco/nicotine user cigarettes Packs smoked per day: 1 Years cigarettes smoked: 40 Course 2 Vital Signs: Vital signs: Vital Signs Temperature 97.9 F 05/26/25 19:55 Pulse Rate 73 05/26/25 21:30 Respiratory Rate 16 05/26/25 21:30 Blood Pressure 147/68 05/26/25 21:30 Pulse Oximetry 92 05/26/25 21:30 Oxygen Delivery Me thod Room Air 05/26/25 21:30 MDM - Fall Medical Decision Making This patient was seen by the midlevel practitioner and not seen by myself at all. Gabriele Avalos MD Lab Data 05/26/25 20:07 05/26/25 20:07 Radiology Impressions Chest/Abdomen/Pelvis CT 05/26/25 20:12 IMPRESSION: 1. Acute 10% T12 superior endplate fracture. No retropulsion or subluxation 2. Atherosclerosis. IMPRESSION: 1. No acute abdominopelvic findings. 2. Liver cirrhosis. 3. Extensive atherosclerosis. COMMENTS: Consistent with the [employer]'s Incidental Findings Committee white paper (J Am Marjorie Radiol 2018): Any incidental renal lesion less than 1 cm or classified as too small to characterize, or any incidental cystic renal lesion characterized as simple-appearing, is likely benign. No follow-up imaging is recommended for these lesions per consensus recommendations based on imaging criteria. Cervical Spine CT 05/26/25 20:13 IMPRESSION: No acute cervical spine fracture. Head CT 05/26/25 20:13 IMPRESSION: No acute intracranial finding. Laboratory Results WBC 15.27 10^3/uL (3.29-11.43) H 05/26/25 20:07 RBC 4.19 10^6/uL (3.85-5.65) 05/26/25 20:07 Hgb 13.30 g/dL (11.27-16.99) 05/26/25 20:07 Hct 39.8 % (36-47) 05/26/25 20:07 MCV 95.0 fl (85-98) 05/26/25 20:07 MCH 31.7 pg (27-33) 05/26/25 20:07 MCHC 33.4 g/dL (30-55) 05/26/25 20:07 RDW 12.4 % (12.1-15.1) 05/26/25 20:07 Plt Count 197 10^3/cmm (157-399) 05/26/25 20:07 MPV 10.2 fL (7.4-10.4) 05/26/25 20:07 Neut % (Auto) 78.0 % 05/26/25 20:07 Lymph % (Auto) 14.9 % 05/26/25 20:07 [place] % (Auto) 5.9 % 05/26/25 20:07 Eos % (Auto) 0.3 % 05/26/25 20:07 Baso % (Auto) 0.4 % 05/26/25 20:07 Neut # (Auto) 11.92 10^3/uL (1.8-7.7) H 05/26/25 20:07 Lymph # (Auto) 2.3 10^3/uL (0.8-4.8) 05/26/25 20:07 [place] # (Auto) 0.9 10^3/uL (0.2-0.9) 05/26/25 20:07 Eos # (Auto) 0.1 10^3/uL (0.0-0.8) 05/26/25 20:07 Baso # (Auto) 0.1 10^3/uL (0.0-0.1) 05/26/25 20:07 Nucleated RBC % (auto) 0 % 05/26/25 20:07 Nucleated RBCs # 0.0 /100WBC 05/26/25 20:07 Sodium 133 mmol/L (136-145) L 05/26/25 20:07 Potassium 4.8 mmol/L (3.5-5.1) 05/26/25 20:07 Chloride 96 mmol/L (98-107) L 05/26/25 20:07 Carbon Dioxide 26 mmol/L (22-29) 05/26/25 20:07 Anion Gap 15.8 (5-19) 05/26/25 20:07 BUN 27 mg/dL (8-23) H 05/26/25 20:07 Creatinine 1.2 mg/dL (0.5-0.9) H 05/26/25 20:07 GFR Calculation 44.5 mL/min (90-130) L 05/26/25 20:07 Glucose 159 mg/dL (65-115) H 05/26/25 20:07 Calculated Osmolality 284 mOsm/kg (285-295) L 05/26/25 20:07 Calcium 9.2 mg/dL (8.5-10.5) 05/26/25 20:07 Total Bilirubin 0.3 mg/dL (0.15-1.2) 05/26/25 20:07 AST 23 U/L (0-32) 05/26/25 20:07 ALT 13 U/L (0-33) 05/26/25 20:07 Alkaline Phosphatase 75 U/L (35-105) 05/26/25 20:07 Troponin T Baseline 11 ng/L (0-10) H 05/26/25 20:07 Total Protein 6.9 g/dL (6.6-8.7) 05/26/25 20:07 Albumin 4.0 g/dL (3.5-5.2) 05/26/25 20:07 Globulin 2.9 g/dL (1.3-4.6) 05/26/25 20:07 All radiology interpretation(s) finalized by discharge Discharge Plan Discharge Patient Disposition: Home Clinical Impression: T12 compression fracture Condition: Stable Prescriptions: No Action lisinopril-hydrochlorothiazide 20-12.5 mg tablet 1 tab PO DAILY isosorbide mononitrate 30 mg tablet extended release 24 hr 30 mg PO DAILY lorazepam 1 mg tablet 1 mg PO BID PRN (Reason: Anxiety) Rx Instructions: take 1-2 tabs every 12 hours for anxiety Caltrate 600 plus D 600 mg (1,500 mg)-800 unit tablet,chewable 1 tab PO DAILY aspirin [Adult Aspirin Regimen] 81 mg tablet,delayed release (DR/EC) 81 mg PO DAILY methimazole 5 mg tablet 5 mg PO .every other day leflunomide 20 mg tablet 20 mg PO DAILY Qty: 90 1RF prednisone 2.5 mg tablet 2.5 mg PO DAILY Qty: 90 1RF amlodipine 10 mg tablet 10 mg PO DAILY Qty: 90 3RF omeprazole 40 mg capsule,delayed release(DR/EC) 40 mg PO DAILY Qty: 30 2RF rosuvastatin 20 mg tablet 20 mg PO DAILY Qty: 90 3RF ondansetron HCl 8 mg Tablet 8 mg PO Q8H PRN (Reason: Nausea) morphine 15 mg tablet 15 mg PO BID PRN (Reason: Pain) Rx Instructions: IR as needed for break through pain nitroglycerin 0.4 mg Tablet, Sublingual 0.4 mg SUBLINGUAL Q5M PRN (Reason: Chest Pain) morphine 15 mg Tablet Extended Release 15 mg PO Q12H pregabalin [Lyrica] 100 mg capsule 100 mg PO BID sennosides [Senokot] 8.6 mg Tablet 8.6 - 17.2 mg PO BID PRN (Reason: Constipation) [place] 3 Fish Oil 900-1,400 mg Capsule,Delayed Release(Dr/Ec) 1 cap PO DAILY Symproic 0.2 mg Tablet 0.2 mg PO DAILY metoclopramide HCl [Reglan] 10 mg tablet 10 mg PO Q6H PRN (Reason: nausea and vomiting) Qty: 20 0RF metoclopramide HCl [Reglan] 10 mg tablet 10 mg PO Q6H PRN (Reason: nausea and vomiting) Qty: 20 0RF Discharge Orders: Discharge ED (Routine); Ordered 05/27/25 Ordered By: North Bhatti Other Ambulatory Orders: DME: Miscellaneous (Order) Location: None Selected Ordered By: North Bhatti Referrals: Lizzette Tucker MD [Primary Care Provider, [facility]] Patient Instructions: Opioid Safety, Pain Management, Patient Portal & Kraig Instructions Activity Restrictions/Additional Instructions: T12 Compression Fracture Discharge Diagnosis: Acute T12 vertebral compression fracture, neurologically intact, managed nonoperatively with thoracolumbosacral orthosis (TLSO) brace. Home Management Instructions: - Activity and Mobilization: - Early mobilization is encouraged as tolerated; prolonged bedrest is not recommended. - Use the TLSO brace as instructed for comfort and support during upright activities. There is no high-quality evidence that rigid bracing improves outcomes compared to no brace, but it may reduce pain and improve tolerability in some patients. - Remove the brace only for hygiene and while lying flat, unless otherwise directed. - Gradually increase activity as pain allows; avoid heavy lifting, bending, or twisting. - Physical therapy referral is appropriate for gait training, safe mobilization, and instruction in spinal precautions. - Pain Management: - Continue baseline daily morphine as previously prescribed. - [place] (hydrocodone/acetaminophen) is for breakthrough pain only; use the lowest effective dose for the shortest duration necessary to minimize opioid- related adverse effects. - Consider adjunctive non-opioid analgesics (e.g., acetaminophen, NSAIDs if not contraindicated) for additional pain control. - Monitor for signs of opioid toxicity, constipation, or sedation. - Brace Care: - Inspect skin under the brace daily for redness, breakdown, or pressure sores. - Keep the brace clean and dry; follow specific instructions from the wigs salesperson. - Fall Prevention: - Implement home safety measures: remove tripping hazards, use assistive devices as needed, ensure adequate lighting. - Review medications for fall risk and consider osteoporosis management if not already addressed. - Follow-Up: - Follow up with orthopedic/spine specialists as scheduled for reassessment and further management. - Outpatient physical therapy may be initiated per specialist recommendation. Return Precautions: - Return to the emergency department or contact your provider immediately for: - New or worsening weakness, numbness, or tingling in the legs. - Loss of bowel or bladder control. - Severe, unrelenting pain not controlled with prescribed medications. - Signs of infection (fever, chills, redness or drainage at brace sites). - Difficulty breathing or chest pain. Additional Considerations: - Educate on the natural history of vertebral compression fractures: most patients experience gradual improvement in pain and function over weeks to months, but a subset may have persistent symptoms. - Discuss osteoporosis evaluation and secondary fracture prevention strategies with primary care or endocrinology as appropriate. 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 She states that she was sitting on a stool, and fell backwards 2 to 3 feet into a door frame, striking her back. States that she is also having pain in her abdomen and if this has caused her to vomit once here in the emergency department. States that she did not hit her head or lose consciousness. She does not use a blood thinner. No symptoms prior to falling. complaint: fall Onset (ago): minute(s) Fall from: chair Fall witnessed: yes, by family Place fall occurred: home Loss of consciousness: None Prolonged down time: no Symptoms prior to fall: none Context: other (Fell out of chair) Location of injury: back and abdomen Associated symptoms-after fall: Reports abdominal pain; Denies chest pain, headache(s), lightheadedness or neck pain Related Data Home Medications ?Medication ?Instructions ?Recorded ?Confirmed isosorbide mononitrate 30 mg 30 mg PO DAILY esophageal spasms 05/27/20 01/18/25 tablet,extended release 24 hr lorazepam 1 mg tablet 1 mg PO BID PRN Anxiety 01/1101/18/25 lisinopril 20 1 tab PO DAILY 11/01/2012/24 mg-hydrochlorothiazide 12.5 mg tablet morphine 15 mg tablet,extended 15 mg PO Q12H 02/03/21 01/18/25 release nitroglycerin 0.4 mg sublingual 0.4 mg sublingual Q5M PRN Chest 02/03/21 01/18/25 tablet Pain calcium 600 mg (as carbonate)-vit 1 tab PO DAILY 03/1901/18/25 D3 20 mcg (800 unit) chewable tablet (Caltrate plus D) pregabalin 100 mg capsule (Lyrica) 100 mg PO BID 05/1901/18/25 aspirin 81 mg tablet,delayed 81 mg PO DAILY 06/26/21 0 01/18/25 release (Adult Aspirin Regimen) morphine 15 mg immediate release 15 mg PO BID PRN Pain 06/27/21 01/18/25 tablet ondansetron HCl 8 mg tablet 8 mg PO Q8H PRN Nausea 01/1201/18/25 methimazole 5 mg tablet 5 mg PO .every other day 11/1701/18/25 naldemedine 0.2 mg tablet 0.2 mg PO DAILY 09/08/24 (Symproic) omega 4-iaa-hpr-fish oil 900 1 cap PO DAILY 09/08/24 0 01/18/25 mg-1,400 mg capsule,delayed release sennosides 8.6 mg tablet (Senokot) 8.6 - 17.2 mg PO BI D PRN 09/08/24 01/18/25 Constipation Previous Rx's ?Medication ?Instructions ?Recorded omeprazole 40 mg capsule,delayed 40 mg PO DAILY #30 ca ps 06/22/22 release rosuvastatin 20 mg tablet 20 mg PO DAILY #90 tabs 01/23 11/17 metoclopramide HCl 10 mg tablet 10 mg PO Q6H PRN nause a and 06/26/24 (Reglan) vomiting #20 tabs metoclopramide HCl 10 mg tablet 10 mg PO Q6H PRN nause a and 09/08/24 (Reglan) vomiting #20 tabs leflunomide 20 mg tablet 20 mg PO DAILY #90 tabs 03/17 amlodipine 10 mg tablet 10 mg PO DAILY #90 tabs 01/16 prednisone 2.5 mg tablet 2.5 mg PO DAILY #90 tabs Allergies Allergy/AdvReac Type Severity Reaction Status Date / Time atorvastatin AdvReac Mild Elevates Verified 01/18/25 15:09 Liver Enzymes Review of Systems 2 General: Reports: 10 or more systems reviewed and unremarkable except in HPI and below Const: Denies: fever(s), chills or fatigue Eyes: Denies: change in vision ENMT: Denies: throat pain, ear or mastoid pain or nasal discharge Card: Denies: chest pain, palpitations, swelling of feet/ankles or lightheadedness Resp: Denies: dyspnea, productive cough or wheezing GI: Reports: abdominal pain, nausea and vomiting; Denies: diarrhea or constipation : Denies: flank pain, difficulty voiding, dysuria or urinary frequency Musc: Reports: back pain; Denies: neck pain or joint pain Skin/Breast: Denies: rash Neuro: Denies: headache(s), numbness in extremities or weakness in extremities PFSH ED 2 PFSH: Medical History Immunization counseling High risk medication use Inflammatory arthritis Cutaneous vasculitis SLE (systemic lupus erythematosus related syndrome) Hyperlipidemia LDL goal <100 Lupus Liver cirrhosis Pain management contract signed Hx of herpes zoster Peripheral arterial disease Claudication of both lower extremities Surgical History History of total abdominal hysterectomy and bilateral salpingo-oophorectomy (~2020) performed by [facility] History of anterior colporrhaphy (~04/25/24) with allograft, mid-urethral sling, cystoscopy performed by Dr. Yancey at [facility] for cystocele and mixed incontinence, mild rectocele. Family History Denies family history of Diabetes CAD (coronary artery disease) Clotting disorder Dementia Hyperlipidemia Chronic kidney disease (CKD) Anesthesia complication Bleeding disorder Family history of premature coronary artery disease Lung disease Cancer Hypertension Social History Smoking and tobacco/nicotine status: current every day tobacco/nicotine user cigarettes Packs smoked per day: 1 Years cigarettes smoked: 40 Physical Exam 2 Const: COMMON NORMALS: no acute distress, patient oriented x3 and no limitations GENERAL APPEARANCE: cooperative, comfortable and well developed ORIENTATION/CONSCIOUSNESS: Yes awake, Yes oriented to person, Yes oriented to place and Yes oriented to time HENMT: COMMON NORMALS: normocephalic, atraumatic and hearing grossly normal bilaterally HEAD & SCALP: normocephalic and atraumatic; no Macdonald's sign, no palpable skull fracture and no raccoon eyes Eye: COMMON NORMALS: Equal, round and reactive pupils present, EOMs intact bilaterally and conjunctivae normal CONJUNCTIVA: Yes conjunctivae normal P UPIL: Yes Equal, round and reactive pupils present Neck/C-Spine: COMMON NORMALS: full ROM, supple and no JVD CERVICAL SPINE: Y es cervical ROM normal Chest: COMMONS NORMALS: normal inspection of the chest and normal palpation of entire chest wall Resp: COMMON NORMALS: normal respiratory effort, No retractions, No use of accessory muscles and clear to auscultation bilaterally AUSCULTATION: clear to auscultation bilaterally Cardio: COMMON NORMALS: no JVD, regular rate, regular rhythm, S1 normal heart sound present, S2 normal heart sound present, No clicks present (Cardio), No murmurs present (Cardio) and No rub (Cardio) RATE: regular rate RHYTHM: r egular rhythm HEART SOUNDS: S1 normal heart sound present and S2 normal heart sound present GI: COMMON NORMALS: Normal to inspection, nondistended, normoactive bowel sounds present and Soft to palpation AUSCULTATION: Yes normoactive bowel sounds PALPATION: Yes Soft to palpation and Yes Tenderness to palpation present (GI) (Tender diffusely) RECTAL EXAM: deferred Back/Pelvis: COMMON NORMALS: thoracic and lumbar spine normal to inspection, no thoracic nor lumbar tenderness and thoraco-lumbar ROM normal OTHER: Normal visual examination. No spinous process tenderness or paracervical, parathoracic, or paralumbar tenderness to palpation. Full active range of motion. Extremity: COMMON NORMALS: normal to inspection, full ROM and capillary refill normal Neuro: COMMON NORMALS: patient oriented x3, CN's II-XII intact bilaterally, moves all extremities, no focal motor deficits and no sensory deficits noted SENSORIUM/ORIENTATION: Yes oriented to person, Yes oriented to place and Yes oriented to time OTHER: L3, L4, L5, and S1 nerve sensations intact. Normal knee jerk and ankle jerk reflexes. Psych: COMMON NORMALS: mental status grossly normal and Normal thought process present THOUGHT PROCESS: Normal thought process present Skin: COMMON NORMALS: no rashes or lesions noted GENERAL SKIN EXAM: no rashes or lesions noted Course 2 Vital Signs: Vital signs: Vital Signs Temperature 97.9 F 05/26/25 19:55 Pulse Rate 73 05/26/25 21:30 Respiratory Rate 16 05/26/25 21:30 Blood Pressure 147/68 05/26/25 21:30 Pulse Oximetry 92 05/26/25 21:30 Oxygen Delivery Me thod Room Air 05/26/25 21:30 MDM - Fall Medical Decision Making Patient was seen after a fall, fell out of a stool onto her back. Reported pain to her back that was now into her stomach, denied hitting her head though with her age and slight amnesia to the incident ordered head and neck CT that were both negative. However chest abdomen pelvis CT did show acute 10% T12 fracture, she is placed in a TLSO brace for this and referred to Ortho/spine. Pain has been controlled. Labs were baseline. She already takes morphine daily for history of postherpetic neuralgia, she is only sent home with a couple of [place] to use for breakthrough pain as I do not want to overmedicate her in this regards. Told her to follow-up with regular provider for any concerns with pain control and keep follow-up with Ortho/spine. She agrees with this plan, her neurovascular status was intact distally following back injury. No saddle anesthesia or incontinence. She is noted to be ambulatory out of the ED. This patient was seen by the midlevel practitioner and not seen by myself at all. Gabriele Avalos MD Lab Data 05/26/25 20:07 05/26/25 20:07 Radiology Impressions Chest/Abdomen/Pelvis CT 05/26/25 20:12 IMPRESSION: 1. Acute 10% T12 superior endplate fracture. No retropulsion or subluxation 2. Atherosclerosis. IMPRESSION: 1. No acute abdominopelvic findings. 2. Liver cirrhosis. 3. Extensive atherosclerosis. COMMENTS: Consistent with the [employer]'s Incidental Findings Committee white paper (J Am Marjorie Radiol 2018): Any incidental renal lesion less than 1 cm or classified as too small to characterize, or any incidental cystic renal lesion characterized as simple-appearing, is likely benign. No follow-up imaging is recommended for these lesions per consensus recommendations based on imaging criteria. Cervical Spine CT 05/26/25 20:13 IMPRESSION: No acute cervical spine fracture. Head CT 05/26/25 20:13 IMPRESSION: No acute intracranial finding. Laboratory Results WBC 15.27 10^3/uL (3.29-11.43) H 05/26/25 20:07 RBC 4.19 10^6/uL (3.85-5.65) 05/26/25 20:07 Hgb 13.30 g/dL (11.27-16.99) 05/26/25 20:07 Hct 39.8 % (36-47) 05/26/25 20:07 MCV 95.0 fl (85-98) 05/26/25 20:07 MCH 31.7 pg (27-33) 05/26/25 20:07 MCHC 33.4 g/dL (30-55) 05/26/25 20:07 RDW 12.4 % (12.1-15.1) 05/26/25 20:07 Plt Count 197 10^3/cmm (157-399) 05/26/25 20:07 MPV 10.2 fL (7.4-10.4) 05/26/25 20:07 Neut % (Auto) 78.0 % 05/26/25 20:07 Lymph % (Auto) 14.9 % 05/26/25 20:07 [place] % (Auto) 5.9 % 05/26/25 20:07 Eos % (Auto) 0.3 % 05/26/25 20:07 Baso % (Auto) 0.4 % 05/26/25 20:07 Neut # (Auto) 11.92 10^3/uL (1.8-7.7) H 05/26/25 20:07 Lymph # (Auto) 2.3 10^3/uL (0.8-4.8) 05/26/25 20:07 [place] # (Auto) 0.9 10^3/uL (0.2-0.9) 05/26/25 20:07 Eos # (Auto) 0.1 10^3/uL (0.0-0.8) 05/26/25 20:07 Baso # (Auto) 0.1 10^3/uL (0.0-0.1) 05/26/25 20:07 Nucleated RBC % (auto) 0 % 05/26/25 20:07 Nucleated RBCs # 0.0 /100WBC 05/26/25 20:07 Sodium 133 mmol/L (136-145) L 05/26/25 20:07 Potassium 4.8 mmol/L (3.5-5.1) 05/26/25 20:07 Chloride 96 mmol/L (98-107) L 05/26/25 20:07 Carbon Dioxide 26 mmol/L (22-29) 05/26/25 20:07 Anion Gap 15.8 (5-19) 05/26/25 20:07 BUN 27 mg/dL (8-23) H 05/26/25 20:07 Creatinine 1.2 mg/dL (0.5-0.9) H 05/26/25 20:07 GFR Calculation 44.5 mL/min (90-130) L 05/26/25 20:07 Glucose 159 mg/dL (65-115) H 05/26/25 20:07 Calculated Osmolality 284 mOsm/kg (285-295) L 05/26/25 20:07 Calcium 9.2 mg/dL (8.5-10.5) 05/26/25 20:07 Total Bilirubin 0.3 mg/dL (0.15-1.2) 05/26/25 20:07 AST 23 U/L (0-32) 05/26/25 20:07 ALT 13 U/L (0-33) 05/26/25 20:07 Alkaline Phosphatase 75 U/L (35-105) 05/26/25 20:07 Troponin T Baseline 11 ng/L (0-10) H 05/26/25 20:07 Total Protein 6.9 g/dL (6.6-8.7) 05/26/25 20:07 Albumin 4.0 g/dL (3.5-5.2) 05/26/25 20:07 Globulin 2.9 g/dL (1.3-4.6) 05/26/25 20:07 Discharge Plan Discharge Patient Disposition: Home Clinical Impression: T12 compression fracture Condition: Stable Prescriptions: No Action lisinopril-hydrochlorothiazide 20-12.5 mg tablet 1 tab PO DAILY isosorbide mononitrate 30 mg tablet extended release 24 hr 30 mg PO DAILY lorazepam 1 mg tablet 1 mg PO BID PRN (Reason: Anxiety) Rx Instructions: take 1-2 tabs every 12 hours for anxiety Caltrate 600 plus D 600 mg (1,500 mg)-800 unit tablet,chewable 1 tab PO DAILY aspirin [Adult Aspirin Regimen] 81 mg tablet,delayed release (DR/EC) 81 mg PO DAILY methimazole 5 mg tablet 5 mg PO .every other day leflunomide 20 mg tablet 20 mg PO DAILY Qty: 90 1RF prednisone 2.5 mg tablet 2.5 mg PO DAILY Qty: 90 1RF amlodipine 10 mg tablet 10 mg PO DAILY Qty: 90 3RF omeprazole 40 mg capsule,delayed release(DR/EC) 40 mg PO DAILY Qty: 30 2RF rosuvastatin 20 mg tablet 20 mg PO DAILY Qty: 90 3RF ondansetron HCl 8 mg Tablet 8 mg PO Q8H PRN (Reason: Nausea) morphine 15 mg tablet 15 mg PO BID PRN (Reason: Pain) Rx Instructions: IR as needed for break through pain nitroglycerin 0.4 mg Tablet, Sublingual 0.4 mg SUBLINGUAL Q5M PRN (Reason: Chest Pain) morphine 15 mg Tablet Extended Release 15 mg PO Q12H pregabalin [Lyrica] 100 mg capsule 100 mg PO BID sennosides [Senokot] 8.6 mg Tablet 8.6 - 17.2 mg PO BID PRN (Reason: Constipation) [place] 3 Fish Oil 900-1,400 mg Capsule,Delayed Release(Dr/Ec) 1 cap PO DAILY Symproic 0.2 mg Tablet 0.2 mg PO DAILY metoclopramide HCl [Reglan] 10 mg tablet 10 mg PO Q6H PRN (Reason: nausea and vomiting) Qty: 20 0RF metoclopramide HCl [Reglan] 10 mg tablet 10 mg PO Q6H PRN (Reason: nausea and vomiting) Qty: 20 0RF Discharge Orders: Discharge ED (Routine); Ordered 05/27/25 Ordered By: North Bhatti Other Ambulatory Orders: DME: Miscellaneous (Order) Location: None Selected Ordered By: Norht Bhatti Referrals: Lizzette Tucker MD [Primary Care Provider, [facility]] Patient Instructions: Opioid Safety, Pain Management, Patient Portal & Kraig Instructions Activity Restrictions/Additional Instructions: T12 Compression Fracture Discharge Diagnosis: Acute T12 vertebral compression fracture, neurologically intact, managed nonoperatively with thoracolumbosacral orthosis (TLSO) brace. Home Management Instructions: - Activity and Mobilization: - Early mobilization is encouraged as tolerated; prolonged bedrest is not recommended. - Use the TLSO brace as instructed for comfort and support during upright activities. There is no high-quality evidence that rigid bracing improves outcomes compared to no brace, but it may reduce pain and improve tolerability in some patients. - Remove the brace only for hygiene and while lying flat, unless otherwise directed. - Gradually increase activity as pain allows; avoid heavy lifting, bending, or twisting. - Physical therapy referral is appropriate for gait training, safe mobilization, and instruction in spinal precautions. - Pain Management: - Continue baseline daily morphine as previously prescribed. - [place] (hydrocodone/acetaminophen) is for breakthrough pain only; use the lowest effective dose for the shortest duration necessary to minimize opioid- related adverse effects. - Consider adjunctive non-opioid analgesics (e.g., acetaminophen, NSAIDs if not contraindicated) for additional pain control. - Monitor for signs of opioid toxicity, constipation, or sedation. - Brace Care: - Inspect skin under the brace daily for redness, breakdown, or pressure sores. - Keep the brace clean and dry; follow specific instructions from the wigs salesperson. - Fall Prevention: - Implement home safety measures: remove tripping hazards, use assistive devices as needed, ensure adequate lighting. - Review medications for fall risk and consider osteoporosis management if not already addressed. - Follow-Up: - Follow up with orthopedic/spine specialists as scheduled for reassessment and further management. - Outpatient physical therapy may be initiated per specialist recommendation. Return Precautions: - Return to the emergency department or contact your provider immediately for: - New or worsening weakness, numbness, or tingling in the legs. - Loss of bowel or bladder control. - Severe, unrelenting pain not controlled with prescribed medications. - Signs of infection (fever, chills, redness or drainage at brace sites). - Difficulty breathing or chest pain. Additional Considerations: - Educate on the natural history of vertebral compression fractures: most patients experience gradual improvement in pain and function over weeks to months, but a subset may have persistent symptoms. - Discuss osteoporosis evaluation and secondary fracture prevention strategies with primary care or endocrinology as appropriate. 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
[2025-05-26] MEDS: iohexol 350 mg/mL 500 mL Btl (per mL) IV (20:37)
[2025-05-26 20:38] LABS: Troponin(5th) Baseline 11 ng/L (0-10)
[2025-05-26 20:40] LABS: Alanine Aminotransferase 13 U/L (0-33); Albumin Level 4.0 g/dL (3.5-5.2); Alkaline Phosphatase 75 U/L (35-105); Anion Gap 15.8 (5-19); Aspartate Amino Transferase 23 U/L (0-32); Blood Urea Nitrogen 27 mg/dL (8-23); Calcium 9.2 mg/dL (8.5-10.5); Carbon Dioxide 26 mmol/L (22-29); Chloride 96 mmol/L (98-107); Creatinine Clr Calc Pharmacy 40.4406; Globulin 2.9 g/dL (1.3-4.6); Glucose 159 mg/dL (65-115); Osmolality Calculated 284 mOsm/kg (285-295); Potassium 4.8 mmol/L (3.5-5.1); Sodium 133 mmol/L (136-145); Total Protein 6.9 g/dL (6.6-8.7)
[2025-05-26 21:00] VITALS: BP 143/53; PULSE 65; RESP 16; O2SAT 90
[2025-05-26 21:30] VITALS: BP 147/68; PULSE 73; RESP 16; O2SAT 92
[2025-05-26] MEDS: fentaNYL 50 mcg/mL INJ 2mL IVP (22:07)
[2025-05-27] MEDS: HYDROcodone-acetaminophen 7.5-325 mg Tablet 2 TAB PO (00:16)
--- NOTE | 2025-05-28 09:31 | DCPLANNER ---
messaged ortho for er f/u
== END 2025-05-27 00:21 | disposition home or self-care (01) ==
PROVIDERS: General Practice; Emergency Provider Physician Assistant; PCP Family Medicine
DX: S22.080A Wedge compression fracture of T11-T12 vertebra, initial encounter for closed fracture (principal); E78.5 Hyperlipidemia, unspecified; F17.210 Nicotine dependence, cigarettes, uncomplicated; W08.XXXA Fall from other furniture, initial encounter
CPT/HCPCS: 36415; 70450; 71260; 72125; 74177; 80053; 84484; 85025; 96361; 96374; 96375; 99285; J2765; J3010; J7030; J9999

== ENCOUNTER → 2025-05-29 10:25 | Outpatient (BNVA) | payer MEDICARE, SELFPAY | PROVIDERS: PCP Family Medicine; Visit Provider Orthopaedic Surgery | DX: S22.080A Wedge compression fracture of T11-T12 vertebra, initial encounter for closed fracture (principal); W19.XXXA Unspecified fall, initial encounter | CPT/HCPCS: 72072; 99203 ==

== ENCOUNTER → 2025-06-26 11:01 | Outpatient (BNVA) | payer MEDICARE, SELFPAY | PROVIDERS: PCP Family Medicine; Visit Provider Orthopaedic Surgery | DX: S22.080A Wedge compression fracture of T11-T12 vertebra, initial encounter for closed fracture (principal); X58.XXXA Exposure to other specified factors, initial encounter | CPT/HCPCS: 72072; 99213 ==

== ENCOUNTER → 2025-07-24 14:44 | Outpatient (BNVA) | payer MEDICARE, SELFPAY | PROVIDERS: PCP Family Medicine; Visit Provider Orthopaedic Surgery | DX: S22.080A Wedge compression fracture of T11-T12 vertebra, initial encounter for closed fracture (principal); X58.XXXA Exposure to other specified factors, initial encounter | CPT/HCPCS: 72072; 99213 ==

== ENCOUNTER → 2025-08-02 12:58 | Outpatient (BNVA) | payer MEDICARE, SELFPAY | PROVIDERS: PCP Family Medicine; Visit Provider Internal Medicine Rheumatology | DX: M32.9 Systemic lupus erythematosus, unspecified (principal); L95.9 Vasculitis limited to the skin, unspecified; M13.80 Other specified arthritis, unspecified site; Z79.899 Other long term (current) drug therapy; Z71.85 Encounter for immunization safety counseling; R03.0 Elevated blood-pressure reading, without diagnosis of hypertension; K59.03 Drug induced constipation; F11.10 Opioid abuse, uncomplicated; R13.10 Dysphagia, unspecified | CPT/HCPCS: 99214 ==

== ENCOUNTER 2025-08-03 10:33 | Outpatient (CLI) | payer MEDICARE, SELFPAY ==
[2025-08-03 12:12] LABS: Hematocrit 44.2 % (36-47); Hemoglobin 14.80 g/dL (11.27-16.99); Mean Corpuscular HGB Conc 33.5 g/dL (30-55); Mean Corpuscular Hemoglobin 32.2 pg (27-33); Mean Corpuscular Volume 96.1 fl (85-98); Nucleated Red Blood Cells % 0 %; Platelet Count 188 10^3/cmm (157-399); Red Blood Count 4.60 10^6/uL (3.85-5.65); White Blood Count 9.96 10^3/uL (3.29-11.43)
[2025-08-03 12:58] LABS: Alanine Aminotransferase 7 U/L (0-33); Albumin Level 4.0 g/dL (3.5-5.2); Alkaline Phosphatase 76 U/L (35-105); Aspartate Amino Transferase 18 U/L (0-32); Globulin 3.5 g/dL (1.3-4.6); Total Protein 7.5 g/dL (6.6-8.7)
== END 2025-08-03 10:34 | disposition home or self-care (01) ==
LOC: LAB 10:35
PROVIDERS: PCP Family Medicine; Visit Provider Internal Medicine Rheumatology
DX: Z79.899 Other long term (current) drug therapy (principal)
CPT/HCPCS: 36415; 80076; 82306; 82565; 82657; 85025; 85651; 86140; 86480

== ENCOUNTER 2025-08-10 15:11 | Outpatient (CLI) | payer MEDICARE, SELFPAY ==
--- NOTE | 2025-08-10 15:30 | XR_ITS ---
WS: [id number] SCREENING DEXA SCAN AYLIEN CLINICAL INFORMATION: M81.0 - Age-related osteoporosis without current patholog... COMPARISON: None. FINDINGS: The L1-L4 bone mineral density measures 1.150 g/cm2. This corresponds to a T score score of -0.2 and Z score of 1.8. Left femoral neck bone mineral density measures 0.758 g/cm2. This corresponds to a T score of -2.0 and Z score of -0.3. Right femoral neck bone mineral density measures 0.729 g/cm2. This corresponds to a T score -2.2of and Z score of -0.5. Mean femoral neck bone mineral density measures 0.743 g/cm2. This corresponds to a T score of -2.1 and Z score of -0.4. XR/XR DEXA axial skeleton* [id number] IMPRESSION: Normal bone mineralization lumbar spine. Osteopenia femoral necks. Patient's FRAX calculated 10 year probability for major osteoporotic fracture i s 32.8% and osteoporotic hip fracture is 12.6%.
== END 2025-08-10 15:12 | disposition home or self-care (01) ==
LOC: RAD 15:11
PROVIDERS: PCP Family Medicine; Visit Provider Internal Medicine Rheumatology
DX: Z13.820 Encounter for screening for osteoporosis (principal); M81.0 Age-related osteoporosis without current pathological fracture; M85.89 Other specified disorders of bone density and structure, multiple sites
CPT/HCPCS: 77080

== ENCOUNTER 2025-08-21 14:25 | Outpatient (CLI) | payer MEDICARE, SELFPAY | END 2025-08-21 14:26 | disposition home or self-care (01) | LOC: RAD 08-24 08:31 | PROVIDERS: PCP Family Medicine; Visit Provider Orthopaedic Surgery | DX: S22.080D Wedge compression fracture of T11-T12 vertebra, subsequent encounter for fracture with routine healing (principal); X58.XXXD Exposure to other specified factors, subsequent encounter | CPT/HCPCS: 72072; 99213 ==

== ENCOUNTER 2025-09-05 12:10 | Outpatient (CLI) | payer MEDICARE, SELFPAY ==
--- NOTE | 2025-09-05 12:14 | MM_ITS ---
WS: [id number] BILATERAL 3D TOMOSYNTHESIS DIGITAL SCREENING MAMMOGRAPHY WITH CAD CLINICAL INFORMATION: SCREENING HISTORY: Screening mammogram. No current complaints. COMPARISON: 2022 TECHNIQUE: Bilateral CC and MLO views. FINDINGS: Scattered fibroglandular densities bilaterally. No suspicious focal mass, asymmetry, calcifications, or architectural distortion. No evidence of malignancy. Incidental punctate calcifications LEFT breast. Vascular calcification. MM/MM scr tomosynthesis [id number] IMPRESSION: DENSITY: There are scattered areas of fibroglandular density. BI-RADS: 2 - Benign. FOLLOW UP: 1 Year Follow-up Recommend return to annual screening mammography.
== END 2025-09-05 12:11 | disposition home or self-care (01) ==
LOC: RAD 12:11
PROVIDERS: PCP Family Medicine; Visit Provider Family Medicine
DX: I73.9 Peripheral vascular disease, unspecified (principal); F17.210 Nicotine dependence, cigarettes, uncomplicated; Z12.31 Encounter for screening mammogram for malignant neoplasm of breast; R92.323 Mammographic fibroglandular density, bilateral breasts
CPT/HCPCS: 77063; 77067; 99213

== ENCOUNTER 2025-09-13 11:50 | Outpatient (CLI) | payer MEDICARE, SELFPAY ==
--- NOTE | 2025-09-13 11:55 | CT_ITS ---
WS: [id number] LDCT LUNG CANCER SCREENING TECHNIQUE: Noncontrast CT of the chest with coronal and sagittal reformatted images. CLINICAL INFORMATION: HX OF TOBACCO USE COMPARISON: CT chest with contrast 05/26/2025 DLP: 43.51 mGy.cm DIvol: Mean CTDIvol: 0.70 (mGy) All CT scans at [facility] use at least one of these dose optimization techniques: automated exposure control; mA and/or kV adjustment per patient size (includes targeted exams where dose is matched to clinical indication); or iterative reconstruction. FINDINGS: Mitral valve annulus calcification. Coronary artery calcifications. Small old reactive mediastinal lymph nodes. No hilar adenopathy or mass. No lung mass or lung nodule. Minimal changes of central lobar emphysema in the upper lobes. No bronchiectasis. Tree-in-bud appearance in the upper lobes subpleural regions. No pleural abnormality. Posterior superior endplate compression fracture of T12. This finding was noted in the acute phase on the previous examination and has further evolved with sclerosis and deformity without further compression. CT/CT lung screening [id number] IMPRESSION: Minimal change of central lobar emphysema. Findings of chronic bronchiolitis No lung mass or lung nodule. LUNG-RADS: 1-Negative FOLLOW UP: As clinically warranted.
== END 2025-09-13 11:51 | disposition home or self-care (01) ==
LOC: RAD 11:51
PROVIDERS: PCP Family Medicine; Visit Provider Family Medicine
DX: Z12.2 Encounter for screening for malignant neoplasm of respiratory organs (principal); Z87.891 Personal history of nicotine dependence; I34.81 Nonrheumatic mitral (valve) annulus calcification; I25.10 Atherosclerotic heart disease of native coronary artery without angina pectoris; R59.0 Localized enlarged lymph nodes; S22.080S Wedge compression fracture of T11-T12 vertebra, sequela; X58.XXXS Exposure to other specified factors, sequela; J44.89 Other specified chronic obstructive pulmonary disease
CPT/HCPCS: 71271